=== PATIENT | female | born 1950 | race Caucasian/White ===

== ENCOUNTER 2016-11-13 11:18 | Inpatient (IN) | payer OTHER ==
[2016-11-04 14:10] VITALS: BMI 23.3
[~2016-11-13 11:18] MED LIST: ACETAMINOPHEN TAB 500 MG TAB PO ONE; DEXAMETHASONE SOD PHOSPHATE 10 MG/ML 1 ML VIAL IV ONE; HYDROmorphone 1 MG/ML 1 ML SYRINGE IVP PRN; LACTATED RINGERS 1,000 ML IV SCH; MELOXICAM 7.5 MG TAB PO ONE; ONDANSETRON 4 MG/2 ML VIAL IVP ONE; TRANEXAMIC ACID 1,000 MG in SODIUM CHLORIDE 0.9% 100 ML IVPB ONE
[2016-11-13] MEDS ORDERED: LIDOCAINE 1% 20 ML VIAL (10MG/ML) FOR IV START INTRADERMA ONE (11:45)
[2016-11-13] MEDS ORDERED: ceFAZolin 10 GM VIAL IVPB ONE (12:27)
[2016-11-13] MEDS ORDERED: LACTATED RINGERS 1,000 ML BAG IV ONE (12:27)
[2016-11-13] MEDS ORDERED: TRANEXAMIC ACID 1,000 MG/10 ML VIAL ONE (12:27)
[2016-11-13] MEDS: ceFAZolin 2 GM in SODIUM CHLORIDE 0.9% 100 ML IVPB ONE ×2 (12:27→16:23)
[2016-11-13] MEDS ORDERED: SODIUM CHLORIDE 0.9% IRRIG 3,000 ML BAG IRRIGATION ONE (12:27)
[2016-11-13] MEDS ORDERED: fentaNYL (PF) 50 MCG/ML 2 ML AMP ONE (12:27)
[2016-11-13] MEDS ORDERED: MIDAZOLAM 2 MG/2 ML VIAL ONE (12:27)
[2016-11-13] MEDS ORDERED: PROPOFOL 10 MG/ML 20 ML VIAL IV ONE (12:27)
[2016-11-13] MEDS ORDERED: PHENYLEPHRINE-0.9% NACL SYG 1 MG/10 ML SYRINGE ONE (12:27)
[2016-11-13] MEDS ORDERED: LIDOCAINE 1% INJ 10MG/ML (20 ML MDV) ONE (12:27)
[2016-11-13] MEDS ORDERED: ceFAZolin 1,000 MG VIAL ONE (12:27)
[2016-11-13] MEDS ORDERED: SODIUM CHLORIDE 0.9% 100 ML BAG ONE ×2 (12:27)
[2016-11-13] MEDS ORDERED: MORPHINE SULFATE (PF) 0.3 MG/0.3 ML SYR ONE (12:27)
[2016-11-13] MEDS: ROPIVACAINE 246.25 MG, EPINEPHrine 0.5 MG, KETOROLAC 30 MG, cloNIDine HCL/PF 80 MCG, WA... MISCELLANE ONE ×10 (13:11→13:37)
[2016-11-13] MEDS: LACTATED RINGERS 1,000 ML IV ONE ×2 (13:22→16:24)
[2016-11-13] MEDS: ceFAZolin 3,000 MG in SODIUM CHLORIDE 0.9% IRRIGATIO 3,000 ML IRRIGATION ONE ×2 (13:26→16:24)
[2016-11-13] MEDS ORDERED: DIAZEPAM 5 MG TAB PO PRN (14:36)
[2016-11-13] MEDS ORDERED: TEMAZEPAM 15 MG CAP PO PRN (14:36)
[2016-11-13] MEDS ORDERED: BISACODYL 10 MG SUPP RECTAL PRN (14:36)
[2016-11-13] MEDS ORDERED: HYDROmorphone 1 MG/ML 1 ML SYRINGE IVP PRN ×3 (14:36)
[2016-11-13] MEDS ORDERED: NA PHOS,M-B/NA PHOS,DI-BA 133 ML ENEMA RECTAL PRN (14:36)
[2016-11-13] MEDS ORDERED: HYDROcodone/APAP 7.5-325MG 1 EACH TAB PO PRN (14:36)
[2016-11-13] MEDS ORDERED: ONDANSETRON 4 MG/2 ML VIAL IVP PRN (14:36)
[2016-11-13] MEDS ORDERED: MAGNESIUM HYDROXIDE 2,400 MG/10 ML CUP PO PRN (14:36)
[2016-11-13] MEDS ORDERED: NALOXONE 0.4 MG/ML 1 ML VIAL IV PRN ×3 (14:36→18:26)
--- NOTE | 2016-11-13 15:15 | XR ---
EXAMINATION TYPE: XR knee limited LT DATE OF EXAM: 11/13/2016 2:51 PM COMPARISON: NONE HISTORY: 66-year-old female evaluation for postoperative abnormality and alignment TECHNIQUE: Portable AP and crosstable lateral views FINDINGS: Images demonstrate placement of left total knee arthroplasty. Both distal femoral and proximal tibial components of the prosthesis appear well seated without periprosthetic fracture. Alignment is grossl y anatomic. There is anterior soft tissue swelling with soft tissue gas as well as intra-articular ai r and joint effusion compatible with recent operation. IMPRESSION: Unremarkable postoperative appearance left total knee arthroplasty.
[2016-11-13] MEDS ORDERED: LACTATED RINGERS 1,000 ML IV ONE (15:21)
[2016-11-13] MEDS ORDERED: PROMETHAZINE INJ 6.25 MG in SODIUM CHLORIDE 0.9% 50 ML IVPB PRN (16:52)
[2016-11-13] MEDS ORDERED: diphenhydrAMINE 50 MG/ML 1 ML VIAL IVP PRN (16:52)
[2016-11-13] MEDS ORDERED: MORPHINE SULFATE 4 MG/ML SYRINGE IVP PRN (16:52)
[2016-11-13] MEDS ORDERED: METOCLOPRAMIDE 5 MG/ML 2 ML VIAL IVP PRN (16:52)
[2016-11-13] MEDS ORDERED: NON-FORMULARY DRUG (Acetaminophen [Tylenol 8 Hour] 650 MG) PO PRN (17:11)
--- NOTE | 2016-11-13 18:29 | PN ---
DATE OF VISIT: 11/13/2016 Stephanie is status post left total knee arthroplasty. She is resting comfortably. I saw her in the postoperative recovery area just as she was about to be transferred up to her room. She is resting comfortably. She is alert and oriented. Her pain is very well controlled at this point in time. Her dressing is dry. She has intact flexion, extension, inversion and eversion of her foot. She has intact lateral, medial, plantar and first dorsal webspace sensation. She has brisk capillary refill in all of her digits. IMPRESSION: Status post left total knee arthroplasty. RECOMMENDATIONS: Stephanie is doing quite well in the very early postoperative period. She will be transferred to the floor. She will begin with usual postoperative total knee arthroplasty therapy protocol starting tomorrow morning. She will utilize Coumadin or aspirin for DVT prophylaxis. All of Stephanie's questions were answered to her satisfaction.
[2016-11-13] MEDS: NALBUPHINE 10 MG/ML AMPUL IV PRN (18:57)
[2016-11-13] MEDS: SODIUM CHLORIDE 0.9% 1,000 ML IV SCH (19:46)
[2016-11-13] MEDS: ASPIRIN 325 MG TAB PO SCH (20:25)
[2016-11-13] MEDS: PRAVASTATIN SODIUM 20 MG TAB PO SCH (20:25)
[2016-11-13] MEDS: GABAPENTIN 100 MG CAP PO SCH (20:25)
[2016-11-13] MEDS: SENNOSIDES-DOCUSATE SODIUM 1 EACH TAB PO SCH (20:25)
[2016-11-13] MEDS: ceFAZolin 2 GM in SODIUM CHLORIDE 0.9% 100 ML IVPB SCH (20:25)
--- NOTE | 2016-11-13 22:42 | OP ---
DATE OF SERVICE: 11/13/2016 SURGEON: RAMÍREZ CARDOZA MD MAINTENANCE ELECTRICIAN: JOAQUÍN PERALES PA-C PREOPERATIVE DIAGNOSIS: Left knee osteoarthrosis. POSTOPERATIVE DIAGNOSIS: Left knee osteoarthrosis. OPERATION: Left total knee arthroplasty. ANESTHESIA: Spinal with sedation. ESTIMATED BLOOD LOSS: 100 mL TOURNIQUET TIME: 51 minutes @ 250 mmHg SPECIMENS REMOVED: COMPLICATIONS: None apparent. DRAINS: None. DISPOSITION: Post-Anesthesia Care Unit OPERATIVE FINDINGS: INDICATIONS: Stephanie is a 66-year-old female with a long-standing history of left knee pain. History and physical examination were consistent with advanced left knee osteoarthrosis. She has been through significant nonoperative management up to this point. Further treatment options were discussed and she decided to go forward with left total knee arthroplasty. The risks of the procedure were discussed with her in detail. These risks include but are not limited to risk of infection, nerve damage, bleeding, pain, and a small risk of deep vein thrombosis which could lead to fatal pulmonary embolism. There is also a risk of loosening of the implant which could require revision operation. The patient understands these risks. All of her questions were answered to her satisfaction. Appropriate informed consent was obtained. DESCRIPTION OF THE PROCEDURE: The patient was identified in the preoperative holding area. The operative site was marked by both the patient and myself. She was given 2 grams of Ancef IV for prophylactic purposes. She was then transferred to the operative suite, where she was placed supine on the operating room table. A spinal anesthetic was then administered and dosed per the anesthesia department without apparent complication. Examination under anesthesia was then performed. The patient was 2 to 3 degrees shy of full extension. She had 100 degrees of flexion, and the medial collateral ligament, lateral collateral ligament and posterior cruciate ligaments were stable. Tourniquet was then placed high on the left upper thigh, well padded in preparation for surgery. The patient's left lower extremity was then prepped and draped in the usual sterile fashion. Standard surgical pause was then undertaken to ensure that we were operating on the correct site and that appropriate preoperative antibiotics had been given. All staff in the room were in agreement and we proceeded. The outlines of the patella were then marked with a surgical pen. A planned 12 cm vertical incision centered over the patella was marked with a surgical pen. The leg was then exsanguinated with an Esmarch dressing. The knee was then flexed and the tourniquet was inflated to 250 mmHg. The total tourniquet time for the procedure was 51 minutes. Incision was then made with a 10 blade scalpel. Dissection was carried down sharply to the overlying fascia. Great care was taken to minimize the skin flaps. The knee was then exposed using a standard medial parapatellar approach. A small cuff of quadriceps tendon was then left for suturing. She was in a bit of varus preoperatively. A standard medial release was then made. A superficial medial collateral ligament was dissected off of the bone around to the posterior aspect of the proximal tibia. The medial meniscus was then excised as well. The lateral meniscus was also released anteriorly. The leg was then externally rotated. The patella was then everted and the knee was flexed. The retractors were then placed to protect the collateral ligaments. I then proceeded to remove the infrapatellar fat pad. This was excised sharply tangentially with the fibers of the patellar tendon. I then proceeded to remove the peripheral osteophytes. This was done with a rongeur. I then proceeded with the distal femoral resection. She did have near-full extension. A planned 9 mm resection was done. The femoral canal was then entered in the midline of the femur, approximately 10 mm anterior to the origin of the posterior cruciate ligament. The rashmi was then advanced down the center of the femur and the rashmi placed intramedullary. Based on preoperative radiographs, the angle between the anatomic and mechanical axis of the femur was approximately 4 to 5 degrees. The valgus angle of the distal femoral cutting guide was then set at 4 degrees for the left knee. The femoral cutting guide was then advanced over the intramedullary rashmi. This was seated firmly against the femur. I then, as mentioned, planned to take 9 mm off the distal femur. The cutting block was then secured onto the femur with pins. The jig was then removed and the distal femoral cut was made through the slot of the block. The pins were then removed and the distal femoral cutting block was removed. The accuracy of the distal femoral cuts was checked with 2 flat bars. I then proceeded with femoral sizing. The posterior referencing sizing guide was held firmly against the resected distal surface of the femur. The posterior condyles were resting on the posterior plane of the guide. The sizing stylus was then placed onto the anterior femur. The size was measured as size 5. I then assessed for femoral rotation. The plan was for 3 degrees of external rotation. Three degrees of external rotation was placed onto the jig. These holes were then marked. I then confirmed the rotation by 3 separate methods. This was done using the epicondylar axis as well as Whitesides line and posterior referencing. It was deemed that the external rotation was proper. I then went forward with placing the femoral cutting block. This was placed over the previously placed pinholes. The reuben wing was then placed onto the anterior slots to ensure that we would not notch the anterior femur with the anterior femoral cut. I then proceeded with the anterior femoral cut. This was flush with the anterior cortex of the femur. Posterior cuts were then made followed by the anterior chamfer cut and then the posterior chamfer cut. The cutting block was then removed. Throughout the resection, the collateral ligaments were protected with retractors. I then placed a trial size 5 femur. It fit very nice medial to lateral and fit flush with the distal end of the femur. The drill holes were then made. I then proceeded with the tibial cut. I planned for a cruciate-retaining knee. The guide was placed and set for varus, valgus and for slope. The height was set for approximately 2 mm resection from the medial tibial plateau, which was the lower side. I was happy with the alignment and the amount of resection. The cutting block was then pinned to the proximal tibia. The alignment rashmi was removed and the proximal tibia was resected with the reciprocating saw. Again this was done with retractors protecting the collateral ligaments as well as the posterior cruciate ligament. I then proceeded to evaluate the flexion and extension gaps. A 10 mm block was placed. The flexion and extension gaps were equal. I then proceeded with resection of the posterior osteophytes. She had very minimal posterior osteophytes. This was done using a curved osteotome. This resected the posterior osteophytes, and posterior capsule stripping was also done off the posterior aspect of the femur at this time. The osteophytes were removed. I then proceeded with resection of the patella. The thickness of the patella was measured using the caliper. Thickness was 22 mm. The thickness of the anticipated patellar dome was taken into account. Resection was then performed and confirmed to be equal in 4 quadrants using the caliper. Approximately 14 mm of bone remained after the resection. A 29 x 8 standard patellar trial was then placed. The holes were then drilled and the trial was then placed. I then proceeded with the sizing of the tibial plate. A size C tibial plate fit very nicely. I then placed the trial femur, the tibial tray and the patellar button. A 10 mm trial tibial insert was also placed. The components fit very nicely. She had full extension and flexion. Extension and flexion gaps were equal and stable to both varus and valgus stress. The patella tracked appropriately. Tibial tray rotation was then marked with a Bovie. This was externally rotated properly. I then proceeded with tibial preparation. I first drilled the femoral holes and removed the femoral component. The tibial tray was then set for proper external rotation as well as mediolateral placement onto the tibia. It was then pinned into place. I then proceeded with punching the keel. I then decided to proceed with cementing of all of our components. The knee was thoroughly irrigated with sterile saline solution via pulse lavage. The lateral genicular artery was identified and cauterized. All blood was removed from the bone of the tibia, femur and patella with pulse lavage. I then proceed with cementing. Two packs of antibiotic bone cement were prepared on the back table by the certified surgical technologist. I then proceeded with cementing of the tibia first. The cement was impacted into the keel as well as deeply seated into the bone. A second coat of cement was then placed. The tibia was then impacted into place. Excess cement was removed with Rose Marie's and jokers. I then proceeded with cementing the femoral component. The femoral component was also cemented using standard technique. Excess cement was removed. A 10 mm trial insert was then placed into the knee. It was brought into full extension with a constant axial load placed until the cement had hardened. The patellar component was then cemented. This was held firmly with a compressive device until the cement had dried. When the cement had dried, the knee was taken out of extension. All excess cement was removed from around the prosthesis. I then trialed the knee with a 10 mm insert. The flexion and extension gaps were appropriate. The knee was stable. It came into full extension. I decided to go forward with a 10 mm cross-linked cruciate-retaining tibial insert. Polyethylene was then placed onto the tibial tray and locked. The knee was then reduced. The knee was again further irrigated with sterile saline solution with antibiotic added. The tourniquet was then deflated. The total tourniquet time for the procedure was 51 minutes at 250 mmHg. Final components were a Carlo Persona size 5 cruciate-retaining femoral component, a size C tibial tray, a 10 mm medial congruent cruciate-retaining polyethylene insert and a 29 x 8 mm patella. I then proceeded with closure. Again the knee was thoroughly irrigated. The quadriceps tendon and the medial retinaculum were reapproximated with #2 Ethibond suture. The extensor mechanism was then closed with running #2 Quill suture. Subcutaneous tissues were closed with 2-0 Vicryl interrupted suture. The skin was closed with a running 3-0 Quill suture. Dermabond was applied to the incision. Sterile compressive dressings were applied. All sponge and needle counts were deemed correct prior to closure. The patient tolerated the procedure without apparent complication. She was transferred to the recovery room in stable condition.
[2016-11-13] MEDS: ACETAMINOPHEN TAB 325 MG TAB PO PRN (23:34)
[2016-11-14] MEDS: NALBUPHINE 10 MG/ML AMPUL IV PRN ×2 (02:19→09:31)
[2016-11-14] MEDS: SODIUM CHLORIDE 0.9% 1,000 ML IV SCH ×3 (03:14→22:17)
[2016-11-14] MEDS: ceFAZolin 2 GM in SODIUM CHLORIDE 0.9% 100 ML IVPB SCH (03:26)
[2016-11-14] MEDS: ACETAMINOPHEN TAB 325 MG TAB PO PRN (05:34)
[2016-11-14 07:10] LABS: Basophils % (A) 0 %; CH 34.4; CHCM 33.5; Eosinophils % (A) 0 %; HCT 33.5 % (34.0-46.0); HGB 10.9 gm/dL (11.4-16.0); Luc # (Auto) 0.11; Luc % (Auto) 1; Lymphocytes % (A) 9 %; MCH 33.6 pg (25.0-35.0); MCHC 32.6 g/dL (31.0-37.0); Macrocytosis Slight; Mean Platelet Volume 8.3; Monocytes # (A) 0.9 k/uL (0-1.0); Monocytes % (A) 8 %; Neutrophils # (A) 9.1 k/uL (1.3-7.7); Neutrophils % (A) 82 %; RBC 3.25 m/uL (3.80-5.40); RDW 12.6 % (11.5-15.5); WBC 11.1 k/uL (3.8-10.6); WBC (Perox) 11.43
--- NOTE | 2016-11-14 07:11 | CONS ---
DATE OF CONSULTATION: REASON FOR CONSULTATION: Postoperative complication management and recommendations regarding antihypertensive medications. The patient is a very pleasant 66-year-old female with known history of hypertension and hyperlipidemia is admitted for left knee arthroplasty, successfully underwent surgery without any complication with ( ). The patient denied any fever or chills. Patient denied nausea, vomiting . Patient denied any dysuria. The patient does have a Johnson catheter postoperatively, which will subsequently be removed tomorrow morning or later today. The patient is ( ) at this point of time. REVIEW OF SYSTEMS: CONSTITUTIONAL: No fever, no malaise, no fatigue. HEENT: No recent visual problems or hearing problems. Denied any sore throat. CARDIOVASCULAR: No chest pain, orthopnea, PND, no palpitations, no syncope. PULMONARY: No shortness of breath, no cough, no hemoptysis. GASTROINTESTINAL: No diarrhea, no nausea, no vomiting, no abdominal pain. Normoactive bowel sounds. NEUROLOGICAL: No headaches, no weakness, no numbness. HEMATOLOGICAL: Denies any bleeding or petechiae. GENITOURINARY: Denies any burning micturition, frequency, or urgency. MUSCULOSKELETAL/RHEUMATOLOGICAL: Denies any joint pain, swelling, or any muscle pain. ENDOCRINE: Denies any polyuria or polydipsia. The rest of the 14 point review of systems is negative. Home medications include: 1. Citracal. 2. Acetaminophen. 3. Aspirin 162 p.o. daily. 4. Calcium carbonate. 5. Divalproex. 6. Gabapentin. 7. Nadolol. 8. Omeprazole. 9. Ondansetron. 10. Pravastatin. 11. Ramipril. Past medical history is significant for gastroesophageal reflux disease, hyperlipidemia, hypertension, migraines in the past, hysterectomy, motion sickness, claustrophobia, anxiety. Family history is significant for myocardial infarction in the family. PHYSICAL EXAMINATION: VITAL SIGNS: Temperature 97.6, pulse 64, respiratory rate of 15, blood pressure 130/68, saturating at 95% on room air. PHYSICAL EXAMINATION: GENERAL: The patient is alert and oriented x3, not in any acute distress. Well developed, well nourished. HEENT: Pupils are round and equally reacting to light. EOMI. No scleral icterus. No conjunctival pallor. Normocephalic, atraumatic. No pharyngeal erythema. No thyromegaly. CARDIOVASCULAR: S1 and S2 present. No murmurs, rubs, or gallops. PULMONARY: Chest is clear to auscultation, no wheezing or crackles. ABDOMEN: Soft, nontender, nondistended, normoactive bowel sounds. No palpable organomegaly. MUSCULOSKELETAL: No joint swelling or deformity. EXTREMITIES: No cyanosis, clubbing, or pedal edema. NEUROLOGICAL: Gross neurological examination did not reveal any focal deficits. SKIN: No rashes. Left knee defer to Orthopedic Surgery. LABORATORY DATA: None available at this point of time. ASSESSMENT AND PLAN: 1. Status post left knee arthroplasty. The patient is on deep venous thrombosis prophylaxis with b.i.d. aspirin. I will leave the decision of deep venous thrombosis prophylaxis to Orthopedic Surgery and management of her pain as per primary services. 2. Hypertension. To prevent perioperative hypotension, hold off Ramipril and nadolol can be continued to prevent perioperative myocardial infarction risks. 3. Hyperlipidemia. 4. Gastroesophageal reflux disease. Her home medications can be continued. Thank you for letting me participate in the patient's care. Will continue to follow the patient on as-needed basis. Patient's primary care physician is Dr. Kait Evans.
[2016-11-14 07:26] LABS: Anion Gap 10 mmol/L; Blood Urea Nitrogen 10 mg/dL (7-17); Carbon Dioxide 24 mmol/L (22-30); Chloride 101 mmol/L (98-107); Glucose 88 mg/dL (74-99); Non-African American GFR(MDRD) >60 (>60 ml/min/1.73 sqM); Potassium 5.2 mmol/L (3.5-5.1); Sodium 135 mmol/L (137-145)
[2016-11-14] MEDS: HYDROcodone/APAP 7.5-325MG 1 EACH TAB PO PRN ×2 (07:55→12:55)
[2016-11-14] MEDS: DIVALPROEX 250 MG TABLET.DR PO SCH (07:57)
[2016-11-14] MEDS: ASPIRIN 325 MG TAB PO SCH ×2 (07:57→20:23)
[2016-11-14] MEDS: NADOLOL 20 MG TAB PO SCH (07:57)
[2016-11-14] MEDS: GABAPENTIN 100 MG CAP PO SCH ×2 (07:57→20:23)
[2016-11-14] MEDS: PANTOPRAZOLE 40 MG TABLET PO SCH (07:57)
[2016-11-14] MEDS ORDERED: NON-FORMULARY DRUG (Aspirin [Adult Low Dose Aspirin Ec] 162 MG) PO SCH (09:00)
[2016-11-14] MEDS ORDERED: LISINOPRIL 20 MG TAB PO SCH (09:00)
--- NOTE | 2016-11-14 09:24 | P.PN ---
Subjective Principal diagnosis: Status post left total knee arthroplasty This is a 66 year-old female post total knee arthroplasty. This is post-op day 1. The patient was evaluated at the bedside today. The patient denies nausea, vomiting, abdominal pain, shortness of breath, and chest pain this morning. She does complain of itching this morning. She states her pain is controlled at this time. The patient has ambulated to the bathroom and in her room this morning. Objective - Vital Signs Vital signs: Vital Signs Temp 97.1 F L 11/14/16 01:00 Pulse 67 11/14/16 01:00 Resp 16 11/14/16 01:00 BP 131/73 11/14/16 01:00 Pulse Ox 98 11/14/16 03:00 Intake & Output 11/13/16 11/14/16 11/14/16 18:59 06:59 18:59 Intake Total 2051 1550 240 Output Total 800 1900 Balance 1251 -350 240 Weight 63.503 kg Intake: IV 2050 300 Sodium Chloride 0.9% 1, 300 000 ml @ 100 mls/hr IV . Q10H MIGUEL Rx#:[id number] Oral 1250 240 Output: Urine 700 1900 Uretheral ([place]) 1900 Estimated Blood Loss 100 Other: Voiding Method Indwelling Catheter - Exam The patient does not appear in acute distress. Alert and orientated x3. Dressing is clean dry and intact. Incision appears fine with no erythema or active drainage. Calf is soft and nontender. Good foot and ankle motion without difficulty. Sensation and circulatory status is intact. - Labs CBC & Chem 7: 11/14/16 06:48 11/14/16 06:45 Labs: Abnormal Lab Results - Last 24 Hours (Table) 11/14/16 11/14/16 Range/Units 06:45 06:48 WBC 11.1 H (3.8-10.6) k/uL RBC 3.25 L (3.80-5.40) m/uL Hgb 10.9 L (11.4-16.0) gm/dL Hct 33.5 L (34.0-46.0) % MCV 103.0 H (80.0-100.0) fL Neutrophils # 9.1 H (1.3-7.7) k/uL Sodium 135 L (137-145) mmol/L Potassium 5.2 H (3.5-5.1) mmol/L Assessment and Plan (1) Primary osteoarthritis of left knee Status: Acute (2) Status post left knee replacement Status: Acute Plan: 1. Continue pain control 2. Anticoagulation with Aspirin 3. Continue physical therapy and ambulation 4. Anticipate discharge home with homecare tomorrow
--- NOTE | 2016-11-14 10:40 | P.PN ---
Progress Note - Text Date:11/14 Time:715 Patient is status post tkr. Patient seen this morning with VAS score of 2. c/o of pruritus, no c/o nausea/vomiting, comfortable and doing well.
[2016-11-14] MEDS ORDERED: CALCIUM CARBONATE 500 MG CHEWABLE PO SCH ×2 (12:00→12:40)
[2016-11-14] MEDS: CALCIUM CARB-VIT D 500MG-200UN 1 EACH TAB PO SCH (12:34)
[2016-11-14] MEDS: MULTIVITAMINS, THERA 1 EACH TAB PO SCH (12:34)
[2016-11-14] MEDS ORDERED: traMADol 50 MG TAB PO PRN (14:44)
[2016-11-14] MEDS: KETOROLAC 30 MG/ML 1 ML VIAL IVP PRN (16:54)
[2016-11-14] MEDS: hydrOXYzine PAMOATE 25 MG CAP PO PRN ×2 (17:54→23:22)
[2016-11-14] MEDS: HYDROcodone/APAP 10-325MG 1 EACH TAB PO PRN ×2 (17:54→23:14)
--- NOTE | 2016-11-14 20:22 | PN ---
Patient is admitted for left ( ) arthroplasty and patient is hyperkalemic today secondary to Ramipril and depending on her blood pressure I will either decrease her ( ) dose or completely discontinue Ramipril and because of her hyperkalemia and will repeat electrolytes tomorrow. Patient is complaining of spasm in the left posterior thigh area, because of post surgery, I will start her on ( ) pain and add NSAIDs for her pain. The patient does have leukocytosis secondary to reactive response from post surgery. REVIEW OF SYSTEMS: CARDIOVASCULAR: No chest pain, no orthopnea, no PND, no palpitations. PULMONARY: Denied any shortness of breath. No cough or hemoptysis. GASTROINTESTINAL: No diarrhea, nausea or vomiting. No abdominal pain. Normoactive bowel sounds. NEUROLOGIC: No headaches, no weakness, no numbness. Musculoskeletal as described in HPI. Medications were reviewed and medication changes as mentioned in the interval history. PHYSICAL EXAMINATION: VITAL SIGNS: Temperature 97.9, pulse of 66, respiratory rate of 16, blood pressure 138/71. Saturating at 98% on room air. GENERAL: The patient is alert and oriented x3, not in any acute distress. Well developed, well nourished. HEENT: Pupils are round and equally reacting to light. EOMI. No scleral icterus. No conjunctival pallor. Normocephalic, atraumatic. No pharyngeal erythema. No thyromegaly. CARDIOVASCULAR: S1 and S2 present. No murmurs, rubs, or gallops. PULMONARY: Chest is clear to auscultation, no wheezing or crackles. ABDOMEN: Soft, nontender, nondistended, normoactive bowel sounds. No palpable organomegaly. MUSCULOSKELETAL: Deferred to orthopedic surgery. EXTREMITIES: No cyanosis, clubbing, or pedal edema. NEUROLOGICAL: Gross neurological examination did not reveal any focal deficits. SKIN: No rashes. LABORATORY DATA: As mentioned above. ASSESSMENT AND PLAN: 1. Hyperkalemia secondary to Ramipril. 2. Status post left knee arthroplasty pain management as mentioned above. 3. Deep venous thrombosis prophylaxis as per primary service. 4. Hypertension. Continue with beta josh and hold off on PARMINDER inhibitor as mentioned above. 5. Hyperlipidemia. 6. Gastroesophageal reflux disease. 7. Leukocytosis, reactive response as mentioned above.
[2016-11-14] MEDS: PRAVASTATIN SODIUM 20 MG TAB PO SCH (20:23)
[2016-11-14] MEDS: SENNOSIDES-DOCUSATE SODIUM 1 EACH TAB PO SCH (20:23)
[2016-11-15] MEDS: KETOROLAC 30 MG/ML 1 ML VIAL IVP PRN ×2 (00:27→12:24)
[2016-11-15] MEDS: HYDROcodone/APAP 10-325MG 1 EACH TAB PO PRN ×2 (04:48→11:14)
[2016-11-15] MEDS: hydrOXYzine PAMOATE 25 MG CAP PO PRN ×2 (04:48→11:13)
[2016-11-15] MEDS: SODIUM CHLORIDE 0.9% 1,000 ML IV SCH (05:40)
--- NOTE | 2016-11-15 06:52 | P.DS ---
Providers Date of admission: 11/13/16 11:18 Expected date of discharge: 11/15/16 Attending physician: Abad Rodriguez Consults: 11/13/16 14:36 Consult Physician Routine Consulting Provider: Bunny Murray Consult Reason/Comments: post op medical management Do you want consulting provider notified?: Yes Primary care physician: Husam Evans - Discharge Diagnosis(es) (1) Primary osteoarthritis of left knee Current Visit: Yes Status: Acute (2) Status post left knee replacement Current Visit: Yes Status: Acute Hospital Course: This is a pleasant 66-year-old female last seen in our office with complaints of left knee pain. Patient has known history of degenerative arthritis of the left knee and presented to discuss options. After discussion and consideration , the patient elected to proceed with a left total knee arthroplasty. Patient was seen preoperatively, and medically cleared for surgery by her primary care physician. Patient was admitted to [facility] and underwent left total knee arthroplasty with Dr. Rodriguez. The procedure was performed without complications or sequelae. The patient is seen and evaluated at bedside today. She has had some difficulty with pain control postoperatively and is currently on Safford 10mg. Patient has no new complaints today and denies any fevers, chills, nausea, vomiting, or shortness of breath. Vital signs are stable. Dressing is clean dry and intact. Incision looks fine with no erythema or active drainage. Calf is soft and nontender. Patient has full foot and ankle motion without difficulty. Homans is negative. Patient's left lower extremity is neurovascularly intact. The patient is orthopedically stable for discharge today if she is ambulating well with physical therapy and her pain is controlled.. Pertinent Studies: Laboratory Tests 11/14/16 06:48 WBC 11.1 H RBC 3.25 L Hgb 10.9 L Hct 33.5 L MCV 103.0 H Plan - Discharge Summary New Discharge Prescriptions: Aspirin 325 mg PO BID #60 tab HYDROcodone/APAP 10-325MG [Safford 10] 1 - 2 each PO Q6H PRN #90 tab PRN Reason: Pain Sennosides-Docusate Sodium [Senokot-S] 2 tab PO DAILY #60 tablet hydrOXYzine PAMOATE [Vistaril] 25 mg PO QID PRN #40 cap PRN Reason: Pain Discharge Medication List Acetaminophen [Tylenol 8 Hour] 650 mg PO BID PRN 10/10/16 [History] Aspirin [Adult Low Dose Aspirin EC] 162 mg PO DAILY 10/10/16 [History] Ca Carbonate/Vitamin D3/Vit K [Citracal Soft Chew] 1 tab PO DAILY 10/10/16 [ History] Divalproex [Depakote] 250 mg PO DAILY 10/10/16 [History] Nadolol [Corgard] 20 mg PO DAILY 10/10/16 [History] Pravastatin Sodium [Pravachol] 20 mg PO HS 10/10/16 [History] Ramipril 10 mg PO DAILY 10/10/16 [History] Citracal Tab 1 tab PO DAILY 11/04/16 [History] Gabapentin [Neurontin] 100 mg PO BID 11/04/16 [History] Omeprazole 20 mg PO DAILY 11/04/16 [History] Ondansetron [Zofran ODT] 8 mg PO Q8HR PRN 11/04/16 [History] Aspirin 325 mg PO BID #60 tab 11/15/16 [Rx] HYDROcodone/APAP 10-325MG [Safford 10] 1 - 2 each PO Q6H PRN #90 tab 11/15/16 [Rx] Sennosides-Docusate Sodium [Senokot-S] 2 tab PO DAILY #60 tablet 11/15/16 [Rx] hydrOXYzine PAMOATE [Vistaril] 25 mg PO QID PRN #40 cap 11/15/16 [Rx] Follow up Appointment(s)/Referral(s): Abad Rodriguez MD [STAFF PHYSICIAN] - 2 Weeks Activity/Diet/Wound Care/Special Instructions: [facility] - [phone] [facility] - [phone] Weightbearing as tolerated with a walker Daily dressing changes, keep incision clean and dry [facility] with questions or concerns [phone] Discharge Disposition: HOME WITH HOME HEALTH SERVICES
[2016-11-15 07:33] LABS: Anion Gap 11 mmol/L; Blood Urea Nitrogen 11 mg/dL (7-17); Carbon Dioxide 21 mmol/L (22-30); Chloride 98 mmol/L (98-107); Glucose 85 mg/dL (74-99); Non-African American GFR(MDRD) >60 (>60 ml/min/1.73 sqM); Potassium 4.9 mmol/L (3.5-5.1); Sodium 130 mmol/L (137-145)
[2016-11-15] MEDS: DIVALPROEX 250 MG TABLET.DR PO SCH (08:25)
[2016-11-15] MEDS: GABAPENTIN 100 MG CAP PO SCH (08:25)
[2016-11-15] MEDS: ASPIRIN 325 MG TAB PO SCH (08:25)
[2016-11-15] MEDS: CALCIUM CARB-VIT D 500MG-200UN 1 EACH TAB PO SCH (08:26)
[2016-11-15] MEDS: NADOLOL 20 MG TAB PO SCH (08:26)
[2016-11-15] MEDS: MULTIVITAMINS, THERA 1 EACH TAB PO SCH (08:26)
[2016-11-15] MEDS: PANTOPRAZOLE 40 MG TABLET PO SCH (08:26)
[2016-11-15 08:34] VITALS: BP 143/72; PULSE 74; RESP 19; TEMP 98
--- NOTE | 2016-11-15 17:29 | PN ---
Patient is admitted with left hip arthroplasty and from medical perspective I am decreasing her Ramipril to 5 mg and her beta josh can be continued as it is. I have another concern that her sodium is dropping probably due to SIADH. I am giving her repeat basic metabolic profile to be tested in 3 days. If it is abnormal, the patient needs outpatient evaluation for SIADH. As of now, I believe patient is clinically stable to be discharged from medical perspective. REVIEW OF SYSTEMS: CARDIOVASCULAR: No chest pain, no orthopnea, no PND, no palpitations. PULMONARY: Denied any shortness of breath. No cough or hemoptysis. GASTROINTESTINAL: No diarrhea, nausea or vomiting. No abdominal pain. Normoactive bowel sounds. NEUROLOGIC: No headaches, no weakness, no numbness. Medications were reviewed. PHYSICAL EXAMINATION: VITAL SIGNS: Temperature 98.0, pulse 74, respiratory rate of 19, blood pressure 143/72, saturating at 97% on room air. GENERAL: The patient is alert and oriented x3, not in any acute distress. Well developed, well nourished. HEENT: Pupils are round and equally reacting to light. EOMI. No scleral icterus. No conjunctival pallor. Normocephalic, atraumatic. No pharyngeal erythema. No thyromegaly. CARDIOVASCULAR: S1 and S2 present. No murmurs, rubs, or gallops. PULMONARY: Chest is clear to auscultation, no wheezing or crackles. ABDOMEN: Soft, nontender, nondistended, normoactive bowel sounds. No palpable organomegaly. MUSCULOSKELETAL: No joint swelling or deformity. EXTREMITIES: No cyanosis, clubbing, or pedal edema. NEUROLOGICAL: Gross neurological examination did not reveal any focal deficits. SKIN: No rashes. LABORATORY DATA: Significant for low sodium as mentioned above. ASSESSMENT AND PLAN: 1. Status post left knee arthroplasty and deep venous thrombosis prophylaxis as per primary service. Pain management as mentioned as per primary service. 2. Hyperkalemia due to PARMINDER inhibitor we are cutting down the dose as mentioned above. 3. Deep venous thrombosis. 4. Hyponatremia, syndrome of inappropriate antidiuretic hormone needs to be ruled out, if she continues to be hyponatremic as an outpatient. 5. Hyperlipidemia. 6. Gastroesophageal reflux disease. 7. Leukocytosis is a reactive response. No signs or symptoms of infection at this point of time. Patient is okay to be discharged from medical perspective. Patient needs to follow with his primary care physician, Dr. Pravin Evans in 3 to 7 days. Activity as tolerated. Cardiac diet.
== END 2016-11-15 15:49 | disposition home health service (06) | DRG 470 ==
LOC: 2ORMAIN 11:18 → 3SUR 15:53
PROVIDERS: ADMIT Family Medicine; ATTEND Orthopaedic Surgery Sports Medicine
PROC: 0SRD0J9 Replacement of Left Knee Joint with Synthetic Substitute, Cemented, Open Approach (ICD-10-PCS; principal; 2016-11-13 14:00)
DX: M17.12 Unilateral primary osteoarthritis, left knee (principal); E87.1 Hypo-osmolality and hyponatremia; I10 Essential (primary) hypertension; E87.5 Hyperkalemia; E78.5 Hyperlipidemia, unspecified; K21.9 Gastro-esophageal reflux disease without esophagitis; G43.909 Migraine, unspecified, not intractable, without status migrainosus; F41.9 Anxiety disorder, unspecified; F40.240 Claustrophobia; T75.3XXA Motion sickness, initial encounter; T44.5X5A Adverse effect of predominantly beta-adrenoreceptor agonists, initial encounter; Z96.642 Presence of left artificial hip joint; Z79.82 Long term (current) use of aspirin; Z79.899 Other long term (current) drug therapy
CPT/HCPCS: 80048; 85025; 88300; 94760

== ENCOUNTER → 2018-02-23 | Outpatient (CLI) | payer OTHER ==
--- NOTE | 2018-02-23 10:35 | BD ---
EXAMINATION TYPE: MG DEXA axial skeleton. DATE OF EXAM: 02/23/2018 COMPARISON: 2004 DEXA bone scan report. CLINICAL HISTORY: screening for osteoporosis. Postmenopausal female. Height: 5'5 Weight: 155 FRAX RISK QUESTIONS: Alcohol (3 or more units per day): no Family History (Parent hip fracture): no Glucocorticoids (More than 3mos): no (Ex: prednisone, prednisolone, methylprednisolone, dexamethasone, and hydrocortisone). History of Fracture in Adulthood: no Secondary Osteoporosis: 1. Type 1 Diabetes: no 2. Hyperthyroidism: no 3. Menopause before 45: yes 4. Malnutrition: no 5. Chronic liver disease: no Rheumatoid Arthritis: no Current Tobacco Use: no RISK FACTORS HISTORY OF: Postmenopausal woman: Yes MEDICATIONS: Additional Medications: blood pressure, cholesterol, migraines Additional History: EXAM MEASUREMENTS: Bone mineral densitometry was performed using the My[employer] System. Bone mineral density as measured about the Lumbar spine is: ----- L1-L4(G/cm2): 1.393 T Score Values are as follows: ----- L2: 0.8 ----- L3: 2.9 ----- L4: 1.9 ----- L1-L4:1.8 Bone mineral density has: Decreased -13.6% since study of: 08/26/2004 Bone mineral density about the R hip (g/cm2): 1.056 Bone mineral density about the L hip (g/cm2): 1.064 T Score values are as follows: -----R Neck: 0.1 -----L Neck: 0.2 -----R Total: 0.0 -----L Total: 0.1 Bone mineral density has: Decreased -18.7% since study of: 08/26/2004 IMPRESSION: Normal (Values between +1 and -1 indicate normal bone mass). Consider repeating this study in 5 year s or sooner if there is some new clinical indication. NOTE: T-SCORE=SD OF THE YOUNG ADULT MEAN.
--- NOTE | 2018-02-24 13:43 | MM ---
Reason for exam: screening (asymptomatic). Last mammogram was performed 1 year and 7 months ago. History: Patient is postmenopausal. Physical Findings: A clinical breast exam by your physician is recommended on an annual basis and results should be correlated with mammographic findings. MG 3D Screening Mammo W/Cad Bilateral CC and MLO view(s) were taken. Prior study comparison: July 17, 2016, bilateral MG 3d screening mammo w/cad. March 01, 2015, bilateral MG screening mammo w CAD. There are scattered fibroglandular densities. No significant changes when compared with prior studies. ASSESSMENT: Negative, BI-RAD 1 RECOMMENDATION: Routine screening mammogram of both breasts in 1 year.
== END | disposition home or self-care (01) ==
LOC: RADMAMWWP 07:35
PROVIDERS: ATTEND Family Medicine
DX: Z12.31 Encounter for screening mammogram for malignant neoplasm of breast (principal); Z13.820 Encounter for screening for osteoporosis
CPT/HCPCS: 77063; 77067; 77080

== ENCOUNTER → 2018-04-09 | Outpatient (CLI) | payer OTHER | END | disposition home or self-care (01) | LOC: LABWHC1 15:50 | PROVIDERS: ATTEND Psychiatry & Neurology Neurology | DX: Z13.89 Encounter for screening for other disorder (principal) | CPT/HCPCS: 36415; 82565 ==

== ENCOUNTER → 2018-04-12 | Outpatient (CLI) | payer OTHER ==
--- NOTE | 2018-04-12 13:11 | MR ---
EXAMINATION TYPE: MR angio neck wo/w con DATE OF EXAM: 04/12/2018 COMPARISON: NONE HISTORY: Migraine CONTRAST: Performed utilizing 7.5 mL intravenous Gadavist gadolinium contrast. TECHNIQUE: Multiplanar, multiecho imaging on a 3.0 Flor magnet is performed through the carotid syst em. 3-D [id number] imaging is performed. Three-D reconstructed images performed by the technologi st are present. FINDINGS: Carotid bifurcations appear normal. No intraluminal or extramural defects are evident. No f ocal stenosis or flow gaps are evident. The vertebral arteries are codominant. The proximal intracranial vasculature appears normal as visualized. There is a three-vessel arch. IMPRESSIONS: 1. Normal bilateral carotid arteries. Vertebral arteries appear normal.
--- NOTE | 2018-04-12 13:59 | MR ---
EXAMINATION TYPE: MR brain/cspine wo DATE OF EXAM: 04/12/2018 COMPARISON: NONE HISTORY: Neck pain, Migraine CONTRAST: Performed utilizing 0 mL intravenous Gadavist gadolinium contrast. TECHNIQUE: Multiplanar, multiecho imaging on a 3.0 Flor magnet is performed through the brain. Stud y is performed within 24 hours of arrival to the hospital. The craniovertebral junction is normal. The pituitary is normal. Diffusion-weighted imaging is performed. No abnormal hyperintensity is present to suggest an acute i ntracranial infarct or acute ischemic change. There is mild diffuse periventricular white matter hyperintensity, which can be related to chronic wh ite matter ischemic changes. Ventricles and sulci are appropriate for the patient age. Mucosal thickening is within ethmoid air cells. Some mucosal thickening is present within the frontal sinuses. Remaining paranasal sinuses are clear IMPRESSIONS: 1. Mild periventricular white matter ischemic changes. EXAMINATION TYPE: MR brain/cspine wo DATE OF EXAM: 04/12/2018 COMPARISON: NONE HISTORY: Neck pain, Migraine CONTRAST: Performed utilizing 0 mL intravenous Gadavist gadolinium contrast. TECHNIQUE: Multiplanar multiecho imaging on a 3.0 Flor magnet is performed through the cervical spin e. FINDINGS: The craniovertebral junction is normal. Vertebral body alignment is normal. There is disc space narrowing C4-5 C5-6 C6-7. Endplate spurring from the inferior endplate of L5 is p resent. C6-7: There is some mild disc bulging C6-7 without cord contact. Mild thecal sac flattening is presen t. Foramen are patent. C5-6: Endplate changes are present C5-6 with moderate anterior thecal sac compression. This comes in close approximation with the spinal cord. Cord contact or spinal canal stenosis is not identified. Th ere is moderate right foraminal narrowing. C4-5: There is central focal bulging centrally and right paracentrally at C4-5. This has moderate ant erior thecal sac compression. This is in close approximation with spinal cord. No spinal canal stenos is present. Neural foramen are patent. C3-4: Minimal central bulge is present C3-4 with mild anterior thecal sac contact. No cord contact or spinal canal stenosis is present. C2-3, C7-T1: No focal disc herniation or significant disc bulge spinal canal stenosis or neural sameer inal stenosis is evident. IMPRESSIONS: 1. Disc bulging C3-4 through C6-7. This appears greatest at C5-6 causing moderate anterior thecal sac compression without cord deformity or contact. 2. Foraminal narrowing discussed above
== END | disposition home or self-care (01) ==
LOC: RADMRIMAIN 09:59
PROVIDERS: ATTEND Psychiatry & Neurology Neurology
DX: M99.71 Connective tissue and disc stenosis of intervertebral foramina of cervical region (principal); M50.21 Other cervical disc displacement, high cervical region; I67.82 Cerebral ischemia; R90.82 White matter disease, unspecified; G43.009 Migraine without aura, not intractable, without status migrainosus
CPT/HCPCS: 70549; 70551; 72141; A9581

== ENCOUNTER → 2019-02-24 | Outpatient (CLI) | payer OTHER ==
--- NOTE | 2019-02-25 11:16 | MM ---
Reason for exam: screening (asymptomatic). Last mammogram was performed 1 year ago. History: Patient is postmenopausal. Physical Findings: A clinical breast exam by your physician is recommended on an annual basis and results should be correlated with mammographic findings. MG 3D Screening Mammo W/Cad Bilateral CC and MLO view(s) were taken. Prior study comparison: February 23, 2018, bilateral MG 3d screening mammo w/cad. July 17, 2016, bilateral MG 3d screening mammo w/cad. There are scattered fibroglandular densities. No significant changes when compared with prior studies. ASSESSMENT: Benign, BI-RAD 2 RECOMMENDATION: Routine screening mammogram of both breasts in 1 year.
== END | disposition home or self-care (01) ==
LOC: RADMAMWWP 06:55
PROVIDERS: ATTEND Family Medicine
DX: Z12.31 Encounter for screening mammogram for malignant neoplasm of breast (principal)
CPT/HCPCS: 77063; 77067

== ENCOUNTER → 2020-10-30 | Outpatient (CLI) | payer OTHER ==
--- NOTE | 2020-10-30 16:11 | CT ---
EXAMINATION TYPE: CT brain wo con DATE OF EXAM: 10/30/2020 COMPARISON: None HISTORY: c/o headaches, visual changes CT DLP: 1064.[address] of the brain was performed. The ventricles, basal cisterns and sulci overlying the cerebral convexities demonstrate mild enlargem ent. There is no evidence for intracranial hemorrhage or sulcal effacement. There is decreased attenuation about the periventricular white matter and deep white matter of both c erebral hemispheres, compatible with chronic small vessel ischemia. Differential diagnosis does inclu de demyelination. No mass effects are seen.No midline shift. Osseous calvarium is intact. If symptoms persist consider MRI. IMPRESSION: 1. Age related atrophic and chronic small vessel ischemic change without acute intracranial process s een at this time.
--- NOTE | 2020-10-30 16:26 | US ---
EXAMINATION TYPE: US carotid duplex BILAT DATE OF EXAM: 10/30/2020 COMPARISON: NONE CLINICAL HISTORY: M54.7 Visual loss. Vision changes EXAM MEASUREMENTS: RIGHT: Peak Systolic Velocity (PSV) cm/sec ----- Right CCA: 63.6 ----- Right ICA: 68.9 ----- Right ECA: 67.1 ICA/CCA ratio: 1.1 RIGHT: End Diastole cm/sec ----- Right CCA: 20.0 ----- Right ICA: 24.6 ----- Right ECA: 18.2 LEFT: Peak Systolic Velocity (PSV) cm/sec ----- Left CCA: 75.8 ----- Left ICA: 68.6 ----- Left ECA: 79.3 ICA/CCA ratio: 0.9 LEFT: End Diastole cm/sec ----- Left CCA: 22.5 ----- Left ICA: 22.5 ----- Left ECA: 19.2 VERTEBRALS (direction of flow): Right Vertebral: Antegrade Left Vertebral: Antegrade Rhythm: Normal No significant stenosis. IMPRESSION: No evidence for hemodynamically significant stenosis. Criteria for Assigning % of Stenosis / Diameter reduction (Estimation based on the indirect measurements of the internal carotid artery velocities (ICA PSV). 1. Normal (no stenosis)=ICA PSV < 125 cm/s: ratio < 2.0: ICA EDV<40 cm/s. 2. Less than 50% stenosis=ICA PSV < 125 cm/s: ratio < 2.0: ICA EDV<40 cm/s. 3. 50 to 69% stenosis=ICA PSV of 125 to 230 cm/s: ration 2.0 ? 4.0: ICA EDV 40-100 cm/s. 4. Greater than 70% stenosis to near occlusion= ICA PSV > 230 cm/s: ratio > 4.0: ICA EDV > 100 cm/s. 5. Near occlusion= ICA PSV velocities may be low or undetectable: variable ratio and ICA EDV. 6. Total occlusion=unable to detect flow.
== END | disposition home or self-care (01) ==
LOC: RADCTMAIN 15:27
PROVIDERS: ATTEND Family Medicine
DX: I67.82 Cerebral ischemia (principal); G31.1 Senile degeneration of brain, not elsewhere classified; H54.7 Unspecified visual loss
CPT/HCPCS: 70450; 93880

== ENCOUNTER → 2020-10-30 | Outpatient (CLI) | payer OTHER ==
--- NOTE | 2020-10-31 08:49 | US ---
EXAMINATION TYPE: US kidneys/renal and bladder DATE OF EXAM: 10/30/2020 COMPARISON: CT & US 2016 CLINICAL HISTORY: N18.30 Chronic Kidney Disease Stage III. CKD stage 3 EXAM MEASUREMENTS: Right Kidney: 8.6 x 3.7 x 3.6 cm Left Kidney: 9.6 x 4.4 x 3.9 cm Right Kidney: small in size, no hydronephrosis, multiple small cystic areas with largest measuring 1. 4cm, multiple echogenic shadowing foci with largest measuring 0.6cm Left Kidney: no hydronephrosis or masses seen, limited by overlying bowel gas Bladder: wnl Bilateral Jets seen: right jet not seen, left jet seen There is no evidence for hydronephrosis at this point in time The urinary bladder is anechoic. Bilat eral ureteral jets are seen. IMPRESSION: 1. Nephrolithiasis right kidney nonobstructing. 2. Right-sided renal cysts.
== END | disposition home or self-care (01) ==
LOC: RADUSWWP 16:14
PROVIDERS: ATTEND Family Medicine
DX: N20.0 Calculus of kidney (principal); N28.1 Cyst of kidney, acquired; N18.30 Chronic kidney disease, stage 3 unspecified
CPT/HCPCS: 76770

== ENCOUNTER → 2020-11-16 | Outpatient (CLI) | payer OTHER ==
[2020-11-16 20:16] LABS: African American GFR (CKD) 44.6 (60.0-200.0); Albumin 4.7 g/dL (3.80-4.90); Albumin/Globulin Ratio 2.24 (1.60-3.17); Anion Gap 9.3 mmol/L (4.00-12.00); BUN/Creat Ratio 15.71 Ratio (12.00-20.00); Calcium 9.8 mg/dL (8.7-10.3); Carbon Dioxide 26.7 mmol/L (21.6-31.8); Globulin 2.1 g/dL (1.6-3.3); Non-African American GFR(CKD) 38.5 (60.0-200.0); Potassium 5.2 mmol/L (3.5-5.5); Total Bilirubin 0.5 mg/dL (0.2-1.2); Total Protein 6.8 g/dL (6.2-8.2)
== END | disposition home or self-care (01) ==
LOC: LABWHC1 10:27
PROVIDERS: ATTEND Internal Medicine
DX: E87.5 Hyperkalemia (principal)
CPT/HCPCS: 36415; 80053

== ENCOUNTER → 2020-12-14 | Outpatient (CLI) | payer OTHER ==
[2020-12-14 10:58] VITALS: BMI 26.3
== END | disposition home or self-care (01) ==
LOC: DBWHC3 08:57
PROVIDERS: ATTEND Nurse Practitioner Family
DX: N18.30 Chronic kidney disease, stage 3 unspecified (principal)
CPT/HCPCS: 97802

== ENCOUNTER → 2021-02-08 | Outpatient (CLI) | payer OTHER ==
[2021-02-08 10:16] LABS: Appearance,Urine Clear (Clear); Bilirubin,Urine Negative (Negative); Blood,Urine Negative (Negative); Color,Urine Light Yellow; Glucose,Urine (UA) Negative (Negative); Ketones,Urine Negative (Negative); Leukocyte Esterase,Urine Trace (Negative); Nitrite,Urine Negative (Negative); PH, Urine 6.5 (5.0-8.0); Protein,Urine Negative (Negative); Specific Gravity,Urine 1.009 (1.001-1.035); Urobilinogen,Urine <2.0 mg/dL (<2.0); WBC,Urine 2 /hpf (0-5)
[2021-02-08 14:36] LABS: HCT 36.8 % (37.2-46.3); HGB 12.1 g/dL (12.0-15.0); MCH 32.4 pg (27.0-32.0); MCHC 32.9 g/dL (32.0-37.0); MCV 98.7 fL (80.0-97.0); Mean Platelet Volume 9.4 fL (9.5-12.2); Platelet Count 250 X 10*3/uL (140-440); RBC 3.73 X 10*6/uL (4.10-5.20); RDW 12.1 % (11.5-14.5); WBC 6.08 X 10*3/uL (4.50-10.00)
[2021-02-08 16:37] LABS: % Iron Saturation 20.07 (12.00-45.00); African American GFR (CKD) 44.3 (60.0-200.0); Albumin 4.7 g/dL (3.80-4.90); Albumin/Globulin Ratio 2.24 (1.60-3.17); Anion Gap 12.1 mmol/L (4.00-12.00); BUN/Creat Ratio 12.86 Ratio (12.00-20.00); Calcium 9.6 mg/dL (8.7-10.3); Carbon Dioxide 24.9 mmol/L (21.6-31.8); Globulin 2.1 g/dL (1.6-3.3); Non-African American GFR(CKD) 38.2 (60.0-200.0); Phosphorus 3.7 mg/dL (2.4-5.1); Potassium 3.7 mmol/L (3.5-5.5); Total Bilirubin 0.5 mg/dL (0.2-1.2); Total Protein 6.8 g/dL (6.2-8.2); Uric Acid 7.5 mg/dL (2.9-7.7)
[2021-02-08 16:46] LABS: Ferritin 262.8 ng/mL (10.0-291.0)
== END | disposition home or self-care (01) ==
LOC: LABWHC1 08:58
PROVIDERS: ATTEND Internal Medicine
DX: D64.9 Anemia, unspecified (principal); E55.9 Vitamin D deficiency, unspecified; N18.32 Chronic kidney disease, stage 3b; N39.0 Urinary tract infection, site not specified; M10.9 Gout, unspecified; N25.81 Secondary hyperparathyroidism of renal origin
CPT/HCPCS: 36415; 80053; 81001; 82306; 82728; 83540; 83550; 83735; 83970; 84100; 84550; 85027

== ENCOUNTER → 2021-02-14 | Outpatient (CLI) | payer OTHER ==
[2021-02-14 15:51] LABS: Basophils # (A) 0.03 X 10*3/uL (0.00-0.10); Basophils % (A) 0.5 %; Eosinophils # (A) 0.14 X 10*3/uL (0.04-0.35); Eosinophils % (A) 2.1 %; HCT 36.4 % (37.2-46.3); HGB 12.1 g/dL (12.0-15.0); Lymphocytes # (A) 1.46 X 10*3/uL (0.90-5.00); Lymphocytes % (A) 22.3 %; MCH 32.7 pg (27.0-32.0); MCHC 33.2 g/dL (32.0-37.0); MCV 98.4 fL (80.0-97.0); Monocytes # (A) 0.76 X 10*3/uL (0.20-1.00); Monocytes % (A) 11.6 %; Neutrophils # (A) 4.15 X 10*3/uL (1.80-7.70); Neutrophils % (A) 63.2 %; Platelet Count 267 X 10*3/uL (140-440); WBC 6.56 X 10*3/uL (4.50-10.00)
[2021-02-14 20:04] LABS: African American GFR (CKD) 48.5 (60.0-200.0); Albumin 4.6 g/dL (3.80-4.90); Albumin/Globulin Ratio 2.19 (1.60-3.17); Anion Gap 12.7 mmol/L (4.00-12.00); BUN/Creat Ratio 11.54 Ratio (12.00-20.00); Calcium 9.7 mg/dL (8.7-10.3); Carbon Dioxide 22.3 mmol/L (21.6-31.8); Globulin 2.1 g/dL (1.6-3.3); Non-African American GFR(CKD) 41.8 (60.0-200.0); Potassium 4.4 mmol/L (3.5-5.5); Total Bilirubin 0.6 mg/dL (0.2-1.2); Total Protein 6.7 g/dL (6.2-8.2)
== END | disposition home or self-care (01) ==
LOC: LABWHC1 08:26
PROVIDERS: ATTEND Psychiatry & Neurology Neurology
DX: H53.2 Diplopia (principal); I10 Essential (primary) hypertension
CPT/HCPCS: 36415; 80053; 85025

== ENCOUNTER → 2021-09-25 | Outpatient (CLI) | payer MEDICARE, OTHER ==
--- NOTE | 2021-09-26 11:59 | MM ---
Reason for exam: screening (asymptomatic). Last mammogram was performed 2 years and 7 months ago. History: Patient is postmenopausal. Physical Findings: A clinical breast exam by your physician is recommended on an annual basis and results should be correlated with mammographic findings. MG 3D Screening Mammo W/Cad Bilateral CC and MLO view(s) were taken. Prior study comparison: February 24, 2019, bilateral MG 3d screening mammo w/cad. February 23, 2018, bilateral MG 3d screening mammo w/cad. There are scattered fibroglandular densities. There is chronic nodularity in the left breast. No significant changes when compared with prior studies. ASSESSMENT: Benign, BI-RAD 2 RECOMMENDATION: Routine screening mammogram of both breasts in 1 year.
== END | disposition home or self-care (01) ==
LOC: RADMAMWWP 07:43
PROVIDERS: ATTEND Family Medicine
DX: Z12.31 Encounter for screening mammogram for malignant neoplasm of breast (principal); Z80.3 Family history of malignant neoplasm of breast
CPT/HCPCS: 77063; 77067

== ENCOUNTER → 2021-11-25 | Outpatient (CLI) | payer MEDICARE ==
[2021-11-25 11:19] LABS: Appearance,Urine Clear (Clear); Bilirubin,Urine Negative (Negative); Blood,Urine Negative (Negative); Color,Urine Yellow; Glucose,Urine (UA) Negative (Negative); Ketones,Urine Negative (Negative); Leukocyte Esterase,Urine Large (Negative); Mucus,Urine Rare /hpf; Nitrite,Urine Negative (Negative); PH, Urine 6.5 (5.0-8.0); Protein,Urine Negative (Negative); RBC,Urine <1 /hpf (0-5); Specific Gravity,Urine 1.014 (1.001-1.035); Squamous Epithelial Cell,Urine <1 /hpf (0-4); Urobilinogen,Urine <2.0 mg/dL (<2.0); WBC,Urine 13 /hpf (0-5)
[2021-11-25 14:13] LABS: Basophils # (A) 0.01 X 10*3/uL (0.00-0.10); Basophils % (A) 0.2 %; Eosinophils # (A) 0.09 X 10*3/uL (0.04-0.35); Eosinophils % (A) 1.9 %; HCT 35.9 % (37.2-46.3); HGB 11.4 g/dL (12.0-15.0); Lymphocytes # (A) 0.82 X 10*3/uL (0.90-5.00); Lymphocytes % (A) 17.4 %; MCH 31.8 pg (27.0-32.0); MCHC 31.8 g/dL (32.0-37.0); MCV 100.3 fL (80.0-97.0); Mean Platelet Volume 10.1 fL (9.5-12.2); Monocytes # (A) 0.54 X 10*3/uL (0.20-1.00); Monocytes % (A) 11.4 %; Neutrophils # (A) 3.25 X 10*3/uL (1.80-7.70); Neutrophils % (A) 68.9 %; Platelet Count 211 X 10*3/uL (140-440); RBC 3.58 X 10*6/uL (4.10-5.20); RDW 11.8 % (11.5-14.5); WBC 4.72 X 10*3/uL (4.50-10.00)
[2021-11-25 14:42] LABS: Magnesium 1.9 mg/dL (1.5-2.4); Uric Acid 6.4 mg/dL (2.9-7.7)
[2021-11-25 14:43] LABS: % Iron Saturation 27.01 (12.00-45.00); African American GFR (CKD) 51.8 (60.0-200.0); Albumin 4.4 g/dL (3.8-4.9); Albumin/Globulin Ratio 1.88 (1.60-3.17); BUN/Creat Ratio 13.98 Ratio (12.00-20.00); Blood Urea Nitrogen 17.2 mg/dL (9.0-27.0); Calcium 9.3 mg/dL (8.7-10.3); Carbon Dioxide 21.8 mmol/L (20.0-27.5); Globulin 2.3 g/dL (1.6-3.3); Non-African American GFR(CKD) 44.7 (60.0-200.0); Phosphorus 3.5 mg/dL (2.4-5.1); Potassium 3.9 mmol/L (3.5-5.5); Total Bilirubin 0.4 mg/dL (0.30-1.20); Total Protein 6.7 g/dL (6.2-8.2)
== END | disposition home or self-care (01) ==
LOC: LABWHC1 08:59
PROVIDERS: ATTEND Internal Medicine
DX: E55.9 Vitamin D deficiency, unspecified (principal); N18.32 Chronic kidney disease, stage 3b; M10.9 Gout, unspecified; N39.0 Urinary tract infection, site not specified; D64.9 Anemia, unspecified; E21.3 Hyperparathyroidism, unspecified
CPT/HCPCS: 36415; 80053; 81001; 82306; 82728; 83540; 83550; 83735; 83970; 84100; 84550; 85025; 87086

== ENCOUNTER → 2022-01-23 | Outpatient (CLI) | payer MEDICARE ==
[2022-01-23 18:26] LABS: Basophils # (A) 0.02 X 10*3/uL (0.00-0.10); Basophils % (A) 0.5 %; Eosinophils # (A) 0.03 X 10*3/uL (0.04-0.35); Eosinophils % (A) 0.7 %; HCT 35.6 % (37.2-46.3); HGB 11.5 g/dL (12.0-15.0); Immature Grans, Automated 0.5 %; Lymphocytes # (A) 0.55 X 10*3/uL (0.90-5.00); Lymphocytes % (A) 13.2 %; MCH 31.9 pg (27.0-32.0); MCHC 32.3 g/dL (32.0-37.0); MCV 98.9 fL (80.0-97.0); Mean Platelet Volume 10.1 fL (9.5-12.2); Monocytes # (A) 0.32 X 10*3/uL (0.20-1.00); Monocytes % (A) 7.7 %; NRBC Per 100 WBC 0 /100 WBCS (0.0-0.0); Neutrophils # (A) 3.24 X 10*3/uL (1.80-7.70); Neutrophils % (A) 77.4 %; Platelet Count 215 X 10*3/uL (140-440); RDW 11.9 % (11.5-14.5); WBC 4.18 X 10*3/uL (4.50-10.00)
[2022-01-23 18:27] LABS: ALT 15 U/L (8-44); AST 18 U/L (13-35); African American GFR (CKD) 44.7 (60.0-200.0); Blood Urea Nitrogen 16.4 mg/dL (9.0-27.0); Calcium 9.7 mg/dL (8.7-10.3); Chloride 97 mmol/L (96-109); Creatine Kinase 45 U/L (26-186); Glucose 95 mg/dL (70-110); Non-African American GFR(CKD) 38.6 (60.0-200.0); Potassium 3.9 mmol/L (3.5-5.5); Sodium 133 mmol/L (135-145); Uric Acid 6.7 mg/dL (2.9-7.7)
[2022-01-23 19:03] LABS: Rheumatoid Factor, Qnt <10 IU/mL (0-15)
[2022-01-23 19:22] LABS: Erythrocyte Sedimentation Rate 12 mm/Hr (0-30)
[2022-01-23 21:25] LABS: Cyclic Citrull Pep IgG Unit <0.5 U/mL; Cyclic Citrullinated Pep IgG NEGATIVE (NEGATIVE)
[2022-01-24 11:37] LABS: HLA B27 NEGATIVE
[2022-01-24 12:58] LABS: Angiotensin-1 Converting Enz. 55 U/L (8-52)
== END | disposition home or self-care (01) ==
LOC: LABWHC1 10:47
PROVIDERS: ATTEND Orthopaedic Surgery
DX: M19.041 Primary osteoarthritis, right hand (principal); M19.032 Primary osteoarthritis, left wrist; M19.031 Primary osteoarthritis, right wrist; M65.4 Radial styloid tenosynovitis [de Quervain]; M18.0 Bilateral primary osteoarthritis of first carpometacarpal joints; M79.644 Pain in right finger(s); M79.642 Pain in left hand; M79.645 Pain in left finger(s); G56.03 Carpal tunnel syndrome, bilateral upper limbs
CPT/HCPCS: 36415; 80048; 82164; 82306; 82550; 83520; 84439; 84443; 84450; 84460; 84550; 85025; 85652; 86038; 86140; 86200; 86431; 86812

== ENCOUNTER 2022-02-06 16:52 | Emergency (ER) | payer MEDICARE ==
[2022-02-06 17:09] VITALS: RESP 16; TEMP 97
[2022-02-06] MEDS ORDERED: ASPIRIN 81 MG PO STA (18:15)
[2022-02-06] MEDS ORDERED: SODIUM CHLORIDE 0.9% 500 ML 500 ML IV STA (18:15)
[2022-02-06] MEDS ORDERED: LORazepam 1 MG TAB PO STA (18:15)
[2022-02-06] MEDS ORDERED: ONDANSETRON 4 MG/2 ML VIAL IVP STA (18:15)
[2022-02-06 18:33] VITALS: BP 143/79; PULSE 70
[2022-02-06 18:40] LABS: Basophils % (A) 0 %; Eosinophils # (A) 0.1 k/uL (0-0.7); Eosinophils % (A) 1 %; HCT 35.9 % (34.0-46.0); HGB 12.1 gm/dL (11.4-16.0); Lymphocytes # (A) 0.8 k/uL (1.0-4.8); Lymphocytes % (A) 11 %; MCH 33.4 pg (25.0-35.0); MCHC 33.8 g/dL (31.0-37.0); MCV 98.7 fL (80.0-100.0); Mean Platelet Volume 7.5; Monocytes # (A) 0.4 k/uL (0-1.0); Monocytes % (A) 5 %; Neutrophils # (A) 5.8 k/uL (1.3-7.7); Neutrophils % (A) 81 %; Platelet Count 178 k/uL (150-450); RBC 3.64 m/uL (3.80-5.40); RDW 12.5 % (11.5-15.5); WBC 7.1 k/uL (3.8-10.6)
[2022-02-06 18:47] LABS: Appearance,Urine Clear (Clear); Bacteria,Urine Rare /hpf; Bilirubin,Urine Negative (Negative); Blood,Urine Negative (Negative); Color,Urine Light Yellow; Glucose,Urine (UA) Negative (Negative); Ketones,Urine Negative (Negative); Leukocyte Esterase,Urine Moderate (Negative); Nitrite,Urine Negative (Negative); PH, Urine 6.5 (5.0-8.0); Protein,Urine Negative (Negative); RBC,Urine 1 /hpf (0-5); Specific Gravity,Urine 1.008 (1.001-1.035); Squamous Epithelial Cell,Urine <1 /hpf (0-4); Urobilinogen,Urine <2.0 mg/dL (<2.0); WBC,Urine 5 /hpf (0-5)
[2022-02-06 19:00] LABS: Albumin 3.8 g/dL (3.5-5.0); Calcium 8.8 mg/dL (8.4-10.2); Magnesium 1.8 mg/dL (1.6-2.3); Potassium 3.6 mmol/L (3.5-5.1); Total Bilirubin 1.1 mg/dL (0.2-1.3); Total Protein 6.5 g/dL (6.3-8.2)
[2022-02-06] MEDS ORDERED: SODIUM CHLORIDE 0.9% 500 ML 500 ML IV ONE (19:06)
[2022-02-06 19:21] LABS: INR 0.9 (<1.2); Prothrombin Time 10.1 sec (9.0-12.0)
--- NOTE | 2022-02-06 19:31 | XR ---
EXAMINATION TYPE: XR chest 2V DATE OF EXAM: 02/06/2022 COMPARISON: NONE HISTORY: Chest pain TECHNIQUE: Frontal and lateral views of the chest are obtained. FINDINGS: There is no focal air space opacity, pleural effusion, or pneumothorax seen. The cardiac silhouette size is within normal limits. The osseous structures are intact. IMPRESSION: No acute cardiopulmonary process.
--- NOTE | 2022-02-06 20:00 | ED ---
General Adult HPI - General Chief complaint: Chest Pain Stated complaint: Chest pressure, anxiety, nausea Time Seen by Provider: 02/06/22 17:32 Source: patient, RN notes reviewed, old records reviewed Mode of arrival: ambulatory Limitations: no limitations - History of Present Illness Initial comments: Patient is a 72-year-old female with past medical history remarkable for anxiety, hypertension, history arthritis, hyperlipidemia he presents with Depa rtment complaining of a 2 day history of chest pressure sensation as well as increased anxiety. Denies any shortness of breath, abdominal pain. Does endorse intermittent nausea. Denies any episodes of vomiting. His no other acute complaints at this time. Presents over concern for the pressure. She states it is occasionally debilitating. This been more or less constant. Denies any radiation. His no other acute complaint at this time. No history cardiac disease. - Related Data Home Medications Medication Instructions Recorded Confirmed Acetaminophen [Tylenol 8 Hour] 650 mg PO BID PRN 10/10/16 11/13/16 Aspirin [Adult Low Dose Aspirin EC] 162 mg PO DAILY 10/10/16 11/13/16 Calcium Carb/Vitamin D3/Vit K1 1 tab PO DAILY 10/10/16 11/13/16 [Citracal-D3 500 mg Soft Chew] Divalproex [Depakote] 250 mg PO DAILY 10/10/16 11/13/16 Pravastatin Sodium [Pravachol] 20 mg PO HS 10/10/16 11/13/16 nadoloL [Corgard] 20 mg PO DAILY 10/10/16 11/13/16 Citracal Tab 1 tab PO DAILY 11/04/16 11/13/16 Gabapentin [Neurontin] 100 mg PO BID 11/04/16 11/13/16 Omeprazole 20 mg PO DAILY 11/04/16 11/13/16 Ondansetron [Zofran ODT] 8 mg PO Q8HR PRN 11/04/16 11/13/16 Previous Rx's Medication Instructions Recorded Aspirin 325 mg PO BID #60 tab 11/15/16 HYDROcodone/APAP 10-325MG [[place] 1 - 2 each PO Q6H PRN #90 tab 11/15/16 10-325] Ramipril 5 mg PO DAILY #0 11/15/16 Sennosides-Docusate Sodium 2 tab PO DAILY #60 tablet 11/15/16 [Senokot-S] diazePAM [Valium] 5 mg PO BID PRN #20 tab 11/15/16 hydrOXYzine pamoate [Vistaril] 25 mg PO QID PRN #40 cap 11/15/16 Allergies Allergy/AdvReac Type Severity Reaction Status Date / Time lactose Allergy Unknown Verified 02/06/22 17:05 Milk Containing Products Allergy Unknown Verified 02/06/22 17:05 [Dairy] [place] [employer] Derivatives AdvReac Unknown Verified 02/06/22 17:05 [[place]] tramadol [From Ultram] AdvReac caused Verified 02/06/22 17:05 depression and anxiety Review of Systems ROS Statement: Those systems with pertinent positive or pertinent negative responses have been documented in the HPI. Review of Systems: CONST: Denies fever EYES: Denies blurry vision ENT: Denies nasal congestion C/V: Endorses chest pressure RESP: Denies shortness of breath GI: Denies abdominal pain : Denies dysuria SKIN: Denies rash. MSK: Denies joint pain. NEURO: Denies headache ROS Other: All systems not noted in ROS Statement are negative. 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 History of Any Multi-Drug Resistant Organisms: None Reported Past Surgical History: Hysterectomy Additional Past Surgical History / Comment(s): alex eyelid surgery, egd/colonosocpy, 11-13-16 left total knee Past Anesthesia/Blood Transfusion Reactions: No Reported Reaction Additional Past Anesthesia/Blood Transfusion Reaction / Comment(s): clausterphobia Past Psychological History: Depression Smoking Status: Never smoker Past Alcohol Use History: Occasional Past Drug Use History: None Reported - Past Family History Mother Family Medical History: Myocardial Infarction ([place]) Additional Family Medical History / Comment(s): cabg General Exam - General Exam Comments Initial Comments: General: Appears in no acute distress. HEAD: Normal with no signs of head trauma. EYES: PERRLA, EOMI, conjunctiva normal, no discharge. ENT: Hearing grossly intact, normal oropharynx. RESPIRATORY: Clear breath sounds bilaterally. No wheezes, rales, or rhonchi. C/V: Regular rate and rhythm. S1 and S2 auscultated, no edema, peripheral pulses 2+ and intact throughout ABD: Abd is soft, nontender, nondistended EXT: Normal range of motion, no obvious deformity SKIN: No rashes or lesions observed on exposed skin. NEURO: Alert and oriented x 4. Cranial nerves II-XII intact. No focal sensory or strength deficits. NIH is 0. GCS is 15. Limitations: no limitations Course Vital Signs 02/06/22 02/06/22 17:05 18:32 Temperature 97 F L Pulse Rate 98 70 Respiratory 16 16 Rate Blood Pressure 123/77 143/79 O2 Sat by Pulse 97 96 Oximetry Medical Decision Making - Medical Decision Making Based on the patient's presentation and physical exam, I'm concerned for acute cardiopulmonary process for the patient. Is also highly likely that could be anxiety or panic attack, she states she feels extremely anxious lately and this has happened previously. However due to her age and risk factors that would like to obtain a cardiac workup as well. She was in agreement with this plan. She'll be given an aspirin, Ativan, as well as IV fluids and Zofran. EKG showed no signs of acute ischemia. Chest x-ray reveals no acute cardiopulmonary process. Laboratory studies are remarkable for a mild hyponatremia with the patient is receiving IV fluids. She has a history of CK D with a slightly elevated creatinine. Troponin is negative. Urinalysis is unremarkable. Remainder the labs are unremarkable. Reevaluation come patient is feeling improved. Symptoms have resolved. Heart score is low at 3. I discussed results with the patient. She would like to go home. I believe this is reasonable. Strict return precautions were discussed. I instructed the patient to follow up with their PCP in the next 3 days. I explained that the patient should return to the emergency department if they experience any worsening symptoms. Strict return precautions were discussed with the patient. The patient expressed understanding of these instructions. I answered all questions that the patient had. The patient was discharged home in good condition with their prescriptions and follow up information. - Lab Data Result diagrams: 02/06/22 18:17 03/31/22 18:17 Lab Results 02/06/22 02/06/22 02/06/22 Range/Units 18:17 18:17 18:17 WBC 7.1 (3.8-10.6) k/uL RBC 3.64 L (3.80-5.40) m/uL Hgb 12.1 (11.4-16.0) gm/dL Hct 35.9 (34.0-46.0) % MCV 98.7 (80.0-100.0) fL MCH 33.4 (25.0-35.0) pg MCHC 33.8 (31.0-37.0) g/dL RDW 12.5 (11.5-15.5) % Plt Count 178 (150-450) k/uL MPV 7.5 Neutrophils % 81 % Lymphocytes % 11 % Monocytes % 5 % Eosinophils % 1 % Basophils % 0 % Neutrophils # 5.8 (1.3-7.7) k/uL Lymphocytes # 0.8 L (1.0-4.8) k/uL Monocytes # 0.4 (0-1.0) k/uL Eosinophils # 0.1 (0-0.7) k/uL Basophils # 0.0 (0-0.2) k/uL PT 10.1 (9.0-12.0) sec INR 0.9 (<1.2) APTT 24.0 (22.0-30.0) sec Sodium (137-145) mmol/L Potassium (3.5-5.1) mmol/L Chloride (98-107) mmol/L Carbon Dioxide (22-30) mmol/L Anion Gap mmol/L BUN (7-17) mg/dL Creatinine (0.52-1.04) mg/dL Est GFR (CKD-EPI)AfAm (>60 ml/min/1.73 sqM) Est GFR (CKD-EPI)NonAf (>60 ml/min/1.73 sqM) Glucose (74-99) mg/dL Calcium (8.4-10.2) mg/dL Magnesium (1.6-2.3) mg/dL Total Bilirubin (0.2-1.3) mg/dL AST (14-36) U/L ALT (4-34) U/L Alkaline Phosphatase (38-126) U/L Troponin I (0.000-0.034) ng/mL Total Protein (6.3-8.2) g/dL Albumin (3.5-5.0) g/dL Urine Color Light Yellow Urine Appearance Clear (Clear) Urine pH 6.5 (5.0-8.0) Ur Specific [place] 1.008 (1.001-1.035) Urine Protein Negative (Negative) Urine Glucose (UA) Negative (Negative) Urine Ketones Negative (Negative) Urine Blood Negative (Negative) Urine Nitrite Negative (Negative) Urine Bilirubin Negative (Negative) Urine Urobilinogen <2.0 (<2.0) mg/dL Ur Leukocyte Esterase Moderate H (Negative) Urine RBC 1 (0-5) /hpf Urine WBC 5 (0-5) /hpf Ur Squamous Epith Cells <1 (0-4) /hpf Urine Bacteria Rare H (None) /hpf 02/06/22 02/06/22 Range/Units 18:17 18:17 WBC (3.8-10.6) k/uL RBC (3.80-5.40) m/uL Hgb (11.4-16.0) gm/dL Hct (34.0-46.0) % MCV (80.0-100.0) fL MCH (25.0-35.0) pg MCHC (31.0-37.0) g/dL RDW (11.5-15.5) % Plt Count (150-450) k/uL MPV Neutrophils % % Lymphocytes % % Monocytes % % Eosinophils % % Basophils % % Neutrophils # (1.3-7.7) k/uL Lymphocytes # (1.0-4.8) k/uL Monocytes # (0-1.0) k/uL Eosinophils # (0-0.7) k/uL Basophils # (0-0.2) k/uL PT (9.0-12.0) sec INR (<1.2) APTT (22.0-30.0) sec Sodium 122 L (137-145) mmol/L Potassium 3.6 (3.5-5.1) mmol/L Chloride 93 L (98-107) mmol/L Carbon Dioxide 21 L (22-30) mmol/L Anion Gap 8 mmol/L BUN 20 H (7-17) mg/dL Creatinine 1.25 H (0.52-1.04) mg/dL Est GFR (CKD-EPI)AfAm 51 (>60 ml/min/1.73 sqM) Est GFR (CKD-EPI)NonAf 44 (>60 ml/min/1.73 sqM) Glucose 81 (74-99) mg/dL Calcium 8.8 (8.4-10.2) mg/dL Magnesium 1.8 (1.6-2.3) mg/dL Total Bilirubin 1.1 (0.2-1.3) mg/dL AST 24 (14-36) U/L ALT 16 (4-34) U/L Alkaline Phosphatase 55 (38-126) U/L Troponin I <0.012 (0.000-0.034) ng/mL Total Protein 6.5 (6.3-8.2) g/dL Albumin 3.8 (3.5-5.0) g/dL Urine Color Urine Appearance (Clear) Urine pH (5.0-8.0) Ur Specific [place] (1.001-1.035) Urine Protein (Negative) Urine Glucose (UA) (Negative) Urine Ketones (Negative) Urine Blood (Negative) Urine Nitrite (Negative) Urine Bilirubin (Negative) Urine Urobilinogen (<2.0) mg/dL Ur Leukocyte Esterase (Negative) Urine RBC (0-5) /hpf Urine WBC (0-5) /hpf Ur Squamous Epith Cells (0-4) /hpf Urine Bacteria (None) /hpf - EKG Data -: EKG Interpreted by Me EKG Comments: 12-lead Electrocardiogram Interpretation Note EKG was reviewed and interpreted by myself. 12-lead ECG performed at 1717 is interpreted by me as revealing normal sinus rhythm at a rate of 71 beats per minute. [place] is normal. [place] interval is 181 ms, QRS duration 75 ms, QTc is 409 ms.. There were no ST or T wave abnormalities to suggest myocardial ischemia or injury. R wave progression across the precordium was satisfactory. By my interpretation this EKG is non-diagnostic for acute ischemia. Disposition Clinical Impression: Chest pain of unknown etiology, Anxiety Disposition: HOME SELF-CARE Condition: Good Instructions (If sedation given, give patient instructions): Chest Pain (ED) Is patient prescribed a controlled substance at d/c from ED?: No Referrals: Husam Evans MD [Primary Care Provider] - 1-2 days
== END 2022-02-06 20:48 | disposition home or self-care (01) ==
LOC: EC 16:52
DX: F41.9 Anxiety disorder, unspecified (principal); R07.89 Other chest pain; I10 Essential (primary) hypertension; E78.5 Hyperlipidemia, unspecified; F32.A Depression, unspecified; M19.90 Unspecified osteoarthritis, unspecified site; Z79.82 Long term (current) use of aspirin; Z79.899 Other long term (current) drug therapy
CPT/HCPCS: 36415; 93005; 80053; 83735; 84484; 85025; 85610; 85730; 81001; 71046; 99285; 96374; 96361; J2405

== ENCOUNTER → 2022-02-18 | Outpatient (CLI) | payer MEDICARE ==
[2022-02-18 23:45] LABS: Anion Gap 14.4 mmol/L (10.00-18.00); BUN/Creat Ratio 12.17 Ratio (12.00-20.00); Blood Urea Nitrogen 14.6 mg/dL (9.0-27.0); Calcium 9.5 mg/dL (8.7-10.3); Carbon Dioxide 21.6 mmol/L (20.0-27.5); Non-African American GFR(CKD) 45.8 (60.0-200.0); Potassium 4.3 mmol/L (3.5-5.5)
== END | disposition home or self-care (01) ==
LOC: LABWHC1 15:09
PROVIDERS: ATTEND Internal Medicine
DX: N18.32 Chronic kidney disease, stage 3b (principal)
CPT/HCPCS: 36415; 80048

== ENCOUNTER → 2022-03-24 | Outpatient (CLI) | payer MEDICARE ==
[2022-03-24 08:10] LABS: Appearance,Urine Clear (Clear); Bilirubin,Urine Negative (Negative); Blood,Urine Negative (Negative); Color,Urine Yellow; Glucose,Urine (UA) Negative (Negative); Ketones,Urine Negative (Negative); Leukocyte Esterase,Urine Negative (Negative); Nitrite,Urine Negative (Negative); PH, Urine 7.5 (5.0-8.0); Protein,Urine Negative (Negative); Specific Gravity,Urine 1.011 (1.001-1.035); Urobilinogen,Urine <2.0 mg/dL (<2.0)
[2022-03-24 10:49] LABS: Basophils # (A) 0.01 X 10*3/uL (0.00-0.10); Basophils % (A) 0.2 %; Eosinophils # (A) 0.08 X 10*3/uL (0.04-0.35); Eosinophils % (A) 1.7 %; HCT 36.3 % (37.2-46.3); HGB 11.6 g/dL (12.0-15.0); Immature Grans, Automated 0.2 %; Lymphocytes # (A) 0.84 X 10*3/uL (0.90-5.00); Lymphocytes % (A) 17.4 %; MCH 31.9 pg (27.0-32.0); MCV 99.7 fL (80.0-97.0); Mean Platelet Volume 9.5 fL (9.5-12.2); Monocytes # (A) 0.47 X 10*3/uL (0.20-1.00); Monocytes % (A) 9.7 %; NRBC Per 100 WBC 0 /100 WBCS (0.0-0.0); Neutrophils # (A) 3.43 X 10*3/uL (1.80-7.70); Neutrophils % (A) 70.8 %; Platelet Count 245 X 10*3/uL (140-440); RBC 3.64 X 10*6/uL (4.10-5.20); RDW 12.6 % (11.5-14.5); WBC 4.84 X 10*3/uL (4.50-10.00)
[2022-03-24 11:00] LABS: % Iron Saturation 25.09 (12.00-45.00); Albumin 4.1 g/dL (3.8-4.9); Albumin/Globulin Ratio 1.47 (1.60-3.17); Anion Gap 9.3 mmol/L (10.00-18.00); BUN/Creat Ratio 16.59 Ratio (12.00-20.00); Blood Urea Nitrogen 20.9 mg/dL (9.0-27.0); Calcium 9.5 mg/dL (8.7-10.3); Carbon Dioxide 24.1 mmol/L (20.0-27.5); Globulin 2.8 g/dL (1.6-3.3); Magnesium 2.2 mg/dL (1.5-2.4); Non-African American GFR(CKD) 43.1 (60.0-200.0); Phosphorus 3.5 mg/dL (2.4-5.1); Potassium 4.1 mmol/L (3.5-5.5); Total Bilirubin 0.4 mg/dL (0.30-1.20); Total Protein 6.9 g/dL (6.2-8.2); Uric Acid 5.6 mg/dL (2.9-7.7)
== END | disposition home or self-care (01) ==
LOC: LABWHC1 07:04
PROVIDERS: ATTEND Nurse Practitioner Family
DX: E21.3 Hyperparathyroidism, unspecified (principal); E55.9 Vitamin D deficiency, unspecified; M10.9 Gout, unspecified; N39.0 Urinary tract infection, site not specified; D64.9 Anemia, unspecified; N18.32 Chronic kidney disease, stage 3b
CPT/HCPCS: 36415; 80053; 81003; 82306; 82728; 83540; 83550; 83735; 83970; 84100; 84550; 85025

== ENCOUNTER → 2022-07-07 | Outpatient (CLI) | payer MEDICARE ==
[2022-07-07 15:33] LABS: HCT 33.7 % (37.2-46.3); HGB 11.1 g/dL (12.0-15.0); MCH 32.7 pg (27.0-32.0); MCHC 32.9 g/dL (32.0-37.0); MCV 99.4 fL (80.0-97.0); Mean Platelet Volume 8.8 fL (9.5-12.2); NRBC Per 100 WBC 0 /100 WBCS (0.0-0.0); Platelet Count 264 X 10*3/uL (140-440); RBC 3.39 X 10*6/uL (4.10-5.20); RDW 12.1 % (11.5-14.5); WBC 4.35 X 10*3/uL (4.50-10.00)
[2022-07-07 17:28] LABS: % Iron Saturation 34.19 (12.00-45.00); African American GFR (CKD) 54.7 (60.0-200.0); Albumin/Globulin Ratio 1.53 (1.60-3.17); Anion Gap 11.9 mmol/L (10.00-18.00); BUN/Creat Ratio 10.6 Ratio (12.00-20.00); Blood Urea Nitrogen 12.4 mg/dL (9.0-27.0); Calcium 9.4 mg/dL (8.7-10.3); Carbon Dioxide 25.3 mmol/L (20.0-27.5); Globulin 2.6 g/dL (1.6-3.3); Non-African American GFR(CKD) 47.2 (60.0-200.0); Phosphorus 3.8 mg/dL (2.4-5.1); Potassium 5.1 mmol/L (3.5-5.5); Total Bilirubin 0.4 mg/dL (0.30-1.20); Total Protein 6.6 g/dL (6.2-8.2); Uric Acid 4.7 mg/dL (2.9-7.7)
[2022-07-07 17:51] LABS: Appearance,Urine Clear (Clear); Bilirubin,Urine Negative (Negative); Blood,Urine Negative (Negative); Color,Urine Yellow (Yellow); Ketones,Urine Negative (Negative); Nitrite,Urine Negative (Negative); Specific Gravity,Urine 1.008 (1.001-1.030)
[2022-07-07 18:00] LABS: Bacteria,Urine None Seen /HPF (None Seen)
== END | disposition home or self-care (01) ==
LOC: LABWHC1 08:12
PROVIDERS: ATTEND Nurse Practitioner Family
DX: D64.9 Anemia, unspecified (principal); E55.9 Vitamin D deficiency, unspecified; M10.9 Gout, unspecified; N18.32 Chronic kidney disease, stage 3b; N39.0 Urinary tract infection, site not specified; N25.81 Secondary hyperparathyroidism of renal origin
CPT/HCPCS: 36415; 80053; 81001; 82306; 82728; 83540; 83550; 83735; 83970; 84100; 84550; 85027

== ENCOUNTER 2022-08-16 19:13 | Inpatient (IN) | payer MEDICARE ==
[2022-08-16] MEDS ORDERED: SODIUM CHLORIDE 0.9% 1,000 ML IV STA (23:54)
[2022-08-16] MEDS ORDERED: ONDANSETRON 4 MG/2 ML VIAL IVP STA (23:55)
[2022-08-16] MEDS ORDERED: MECLIZINE 12.5 MG TAB PO STA (23:55)
--- NOTE | 2022-08-16 23:55 | ED ---
Dizziness HPI - General Chief Complaint: Dizziness Stated Complaint: vertigo Time Seen by Provider: 08/16/22 23:54 Source: patient, RN notes reviewed, old records reviewed Mode of arrival: ambulatory Limitations: no limitations - History of Present Illness Initial Comments: This is a 72-year-old female to the ER today for evaluation. This patient prese nts today for evaluation regards to what she describes as vertigo. History of vertigo. The same. No headache. Patient is no nausea vomiting. No recent illness, no recent change in medications. No trauma no fevers MD Complaint: dizziness, lightheadedness -: hour(s) Timing: gradual onset, constant Description: "room spinning", lightheadedness, off-balance History of Same: Yes History of Trauma: No Severity: moderate Improves With: remaining still Worsens With: movement Associated Symptoms: ataxia, loss of appetite - Related Data Home Medications Medication Instructions Recorded Confirmed Acetaminophen [Tylenol 8 Hour] 650 mg PO BID PRN 10/10/16 11/13/16 Aspirin [Adult Low Dose Aspirin EC] 162 mg PO DAILY 10/10/16 11/13/16 Calcium Carb/Vitamin D3/Vit K1 1 tab PO DAILY 10/10/16 11/13/16 [Citracal-D3 500 mg Soft Chew] Divalproex [Depakote] 250 mg PO DAILY 10/10/16 11/13/16 Pravastatin Sodium [Pravachol] 20 mg PO HS 10/10/16 11/13/16 nadoloL [Corgard] 20 mg PO DAILY 10/10/16 11/13/16 Citracal Tab 1 tab PO DAILY 11/04/16 11/13/16 Gabapentin [Neurontin] 100 mg PO BID 11/04/16 11/13/16 Omeprazole 20 mg PO DAILY 11/04/16 11/13/16 Ondansetron [Zofran ODT] 8 mg PO Q8HR PRN 11/04/16 11/13/16 Previous Rx's Medication Instructions Recorded Aspirin 325 mg PO BID #60 tab 11/15/16 HYDROcodone/APAP 10-325MG [[place] 1 - 2 each PO Q6H PRN #90 tab 11/15/16 10-325] Ramipril 5 mg PO DAILY #0 11/15/16 Sennosides-Docusate Sodium 2 tab PO DAILY #60 tablet 11/15/16 [Senokot-S] diazePAM [Valium] 5 mg PO BID PRN #20 tab 11/15/16 hydrOXYzine pamoate [Vistaril] 25 mg PO QID PRN #40 cap 11/15/16 Allergies Allergy/AdvReac Type Severity Reaction Status Date / Time lactose Allergy Unknown Verified 08/16/22 19:39 Milk Containing Products Allergy Unknown Verified 08/16/22 19:39 [Dairy] [place] And Derivatives AdvReac Unknown Verified 08/16/22 19:39 [[place]] tramadol [From Ultram] AdvReac caused Verified 08/16/22 19:39 depression and anxiety Review of Systems ROS Statement: Those systems with pertinent positive or pertinent negative responses have been documented in the HPI. ROS Other: All systems not noted in ROS Statement are negative. 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 History of Any Multi-Drug Resistant Organisms: None Reported Past Surgical History: Hysterectomy Additional Past Surgical History / Comment(s): alex eyelid surgery, egd/colonosocpy, 11-13-16 left total knee Past Anesthesia/Blood Transfusion Reactions: No Reported Reaction Additional Past Anesthesia/Blood Transfusion Reaction / Comment(s): clausterphobia Past Psychological History: Depression Smoking Status: Never smoker Past Alcohol Use History: Occasional Past Drug Use History: None Reported - Past Family History Mother Family Medical History: Myocardial Infarction ([place]) Additional Family Medical History / Comment(s): cabg General Exam Limitations: no limitations General appearance: alert, in no apparent distress Head exam: Present: atraumatic, normocephalic, normal inspection Eye exam: Present: normal appearance, PERRL, EOMI. Absent: scleral icterus, conjunctival injection, periorbital swelling ENT exam: Present: normal exam, mucous membranes moist Neck exam: Present: normal inspection. Absent: tenderness, meningismus, lymphadenopathy Respiratory exam: Present: normal lung sounds bilaterally. Absent: respiratory distress, wheezes, rales, rhonchi, stridor Cardiovascular Exam: Present: regular rate, normal rhythm, normal heart sounds. Absent: systolic murmur, diastolic murmur, rubs, gallop, clicks GI/Abdominal exam: Present: soft, normal bowel sounds. Absent: distended, tenderness, guarding, rebound, rigid Extremities exam: Present: normal inspection, full ROM, normal capillary refill. Absent: tenderness, pedal edema, joint swelling, calf tenderness Back exam: Present: normal inspection Neurological exam: Present: alert, oriented X3, CN II-XII intact Psychiatric exam: Present: normal affect, normal mood Skin exam: Present: warm, dry, intact, normal color. Absent: rash Course Vital Signs 08/16/22 08/17/22 08/17/22 19:37 01:17 02:06 Temperature 97.4 F L Pulse Rate 70 81 81 Respiratory 18 16 16 Rate Blood Pressure 189/103 183/97 148/84 O2 Sat by Pulse 98 97 92 L Oximetry - Reevaluation(s) Reevaluation #1: 08/17/22 02:16 Medical record is reviewed Reevaluation #2: 08/17/22 02:16 Patient symptoms are improved Reevaluation #3: 08/17/22 02:16 Patient informed results and questions answered - Consultations Consultation #1: Spoke with sound who will admit this patient EKG Findings - EKG Comments: EKG Findings:: EKG is sinus 68 [place] 187 QRS 78 QTc 433 Medical Decision Making - Medical Decision Making 72 female to the emergency department for evaluation. Patient will be admitted for management of headache and vertiginous symptoms - Lab Data Result diagrams: 08/17/22 00:19 08/17/22 00:19 Lab Results 08/17/22 08/17/22 08/17/22 Range/Units 00:19 00:19 00:19 WBC 6.1 (3.8-10.6) k/uL RBC 3.76 L (3.80-5.40) m/uL Hgb 12.4 (11.4-16.0) gm/dL Hct 35.0 (34.0-46.0) % MCV 93.0 (80.0-100.0) fL MCH 33.0 (25.0-35.0) pg MCHC 35.5 (31.0-37.0) g/dL RDW 12.7 (11.5-15.5) % Plt Count 289 (150-450) k/uL MPV 7.1 Neutrophils % 82 % Lymphocytes % 12 % Monocytes % 4 % Eosinophils % 1 % Basophils % 0 % Neutrophils # 5.0 (1.3-7.7) k/uL Lymphocytes # 0.8 L (1.0-4.8) k/uL Monocytes # 0.2 (0-1.0) k/uL Eosinophils # 0.0 (0-0.7) k/uL Basophils # 0.0 (0-0.2) k/uL PT 10.1 (9.0-12.0) sec INR 0.9 (<1.2) APTT 22.1 (22.0-30.0) sec Sodium 126 L (137-145) mmol/L Potassium 3.8 (3.5-5.1) mmol/L Chloride 88 L (98-107) mmol/L Carbon Dioxide 25 (22-30) mmol/L Anion Gap 13 mmol/L BUN 13 (7-17) mg/dL Creatinine 0.91 (0.52-1.04) mg/dL Est GFR (CKD-EPI)AfAm 74 (>60 ml/min/1.73 sqM) Est GFR (CKD-EPI)NonAf 64 (>60 ml/min/1.73 sqM) Glucose 106 H (74-99) mg/dL Calcium 9.8 (8.4-10.2) mg/dL Total Bilirubin 0.7 (0.2-1.3) mg/dL AST 26 (14-36) U/L ALT 20 (4-34) U/L Alkaline Phosphatase 83 (38-126) U/L Troponin I (0.000-0.034) ng/mL Total Protein 7.8 (6.3-8.2) g/dL Albumin 4.5 (3.5-5.0) g/dL 08/17/22 Range/Units 00:19 WBC (3.8-10.6) k/uL RBC (3.80-5.40) m/uL Hgb (11.4-16.0) gm/dL Hct (34.0-46.0) % MCV (80.0-100.0) fL MCH (25.0-35.0) pg MCHC (31.0-37.0) g/dL RDW (11.5-15.5) % Plt Count (150-450) k/uL MPV Neutrophils % % Lymphocytes % % Monocytes % % Eosinophils % % Basophils % % Neutrophils # (1.3-7.7) k/uL Lymphocytes # (1.0-4.8) k/uL Monocytes # (0-1.0) k/uL Eosinophils # (0-0.7) k/uL Basophils # (0-0.2) k/uL PT (9.0-12.0) sec INR (<1.2) APTT (22.0-30.0) sec Sodium (137-145) mmol/L Potassium (3.5-5.1) mmol/L Chloride (98-107) mmol/L Carbon Dioxide (22-30) mmol/L Anion Gap mmol/L BUN (7-17) mg/dL Creatinine (0.52-1.04) mg/dL Est GFR (CKD-EPI)AfAm (>60 ml/min/1.73 sqM) Est GFR (CKD-EPI)NonAf (>60 ml/min/1.73 sqM) Glucose (74-99) mg/dL Calcium (8.4-10.2) mg/dL Total Bilirubin (0.2-1.3) mg/dL AST (14-36) U/L ALT (4-34) U/L Alkaline Phosphatase (38-126) U/L Troponin I <0.012 (0.000-0.034) ng/mL Total Protein (6.3-8.2) g/dL Albumin (3.5-5.0) g/dL - Radiology Data Radiology results: report reviewed (CT brain negative for acute disease), image reviewed Disposition Clinical Impression: Headache, Nausea & vomiting, Vertigo, Benign paroxysmal positional vertigo Disposition: ADMITTED IP TO THIS [facility] Condition: Good Is patient prescribed a controlled substance at d/c from ED?: No Referrals: Husam Evans MD [Primary Care Provider] - 1-2 days Time of Disposition: 02:10
[2022-08-17 00:26] LABS: Basophils % (A) 0 %; Eosinophils % (A) 1 %; HGB 12.4 gm/dL (11.4-16.0); Lymphocytes # (A) 0.8 k/uL (1.0-4.8); Lymphocytes % (A) 12 %; MCHC 35.5 g/dL (31.0-37.0); Mean Platelet Volume 7.1; Monocytes # (A) 0.2 k/uL (0-1.0); Monocytes % (A) 4 %; Neutrophils % (A) 82 %; Platelet Count 289 k/uL (150-450); RBC 3.76 m/uL (3.80-5.40); RDW 12.7 % (11.5-15.5); WBC 6.1 k/uL (3.8-10.6)
[2022-08-17 00:35] LABS: INR 0.9 (<1.2); Partial Thromboplastin Time 22.1 sec (22.0-30.0); Prothrombin Time 10.1 sec (9.0-12.0)
[2022-08-17 00:36] LABS: Albumin 4.5 g/dL (3.5-5.0); Calcium 9.8 mg/dL (8.4-10.2); Potassium 3.8 mmol/L (3.5-5.1); Total Bilirubin 0.7 mg/dL (0.2-1.3); Total Protein 7.8 g/dL (6.3-8.2)
--- NOTE | 2022-08-17 00:51 | CT ---
EXAMINATION TYPE: CT brain wo con for TPA DATE OF EXAM: 08/16/2022 COMPARISON: 10/30/2020 HISTORY: C/O HEADACHE & DIZZIENESS, FEELS LIKE THE ROOM IS SPINNING, H/O VERTIGO BUT SAYS THIS IS THE WROST SHE'S HAD IT, LIGHTS MAKING IT WORSE CT DLP: 1147.4 mGycm Automated exposure control for dose reduction was used. Images of the brain obtained without contrast. Ventricles have normal size. There is no mass effect or midline shift. No sign of intracranial hemorr perla. The calvarium is intact. The skull base is intact. There is normal aeration of the mastoid sinu ses. IMPRESSION: Negative unenhanced head CT scan. No change compared to old exam.
[2022-08-17] MEDS ORDERED: diphenhydrAMINE 50 MG/ML 1 ML VIAL IVP STA (01:16)
[2022-08-17] MEDS: KETOROLAC 15 MG/ML 1 ML VIAL IVP STA ×2 (01:19→01:24)
[2022-08-17] MEDS ORDERED: MORPHINE SULFATE 4 MG/ML SYRINGE IVP STA (01:23)
[2022-08-17] MEDS ORDERED: SODIUM CHLORIDE 0.9% 500 ML 500 ML IV STA (02:11)
[2022-08-17] MEDS ORDERED: NALOXONE 0.4 MG/ML 1 ML VIAL IV PRN (02:12)
[2022-08-17] MEDS ORDERED: ACETAMINOPHEN TAB 325 MG TAB PO PRN (02:12)
[2022-08-17] MEDS ORDERED: ONDANSETRON 4 MG/2 ML VIAL IVP PRN (02:12)
[2022-08-17] MEDS ORDERED: PROCHLORPERAZINE INJ 10 MG/2 ML VIAL IVP STA (02:14)
[2022-08-17] MEDS ORDERED: SODIUM CHLORIDE 0.9% 1,000 ML IV SCH (02:15)
[2022-08-17] MEDS: SODIUM CHLORIDE 0.9% 1,000 ML IV SCH ×3 (02:39→19:10)
[2022-08-17 03:24] LABS: Appearance,Urine Clear (Clear); Bacteria,Urine Rare /hpf; Bilirubin,Urine Negative (Negative); Blood,Urine Negative (Negative); Color,Urine Light Yellow; Glucose,Urine (UA) Negative (Negative); Ketones,Urine Negative (Negative); Leukocyte Esterase,Urine Trace (Negative); Nitrite,Urine Negative (Negative); PH, Urine 7.5 (5.0-8.0); Protein,Urine Negative (Negative); RBC,Urine 1 /hpf (0-5); Specific Gravity,Urine 1.005 (1.001-1.035); Squamous Epithelial Cell,Urine 1 /hpf (0-4); Urobilinogen,Urine <2.0 mg/dL (<2.0); WBC,Urine 2 /hpf (0-5)
--- NOTE | 2022-08-17 05:39 | P.HPIM ---
History of Present Illness H&P Date: 08/17/22 The patient is a 72-year-old female with a PMH of chronic migraines and chronic vertigo (unknown etiology) who presented to the emergency room with complaints of dizziness, nausea, vomiting. Patient reports a long-standing history of vertigo for the past numerous years for which she reports following up with subspecialists. Reports that her symptoms recently are worse 48 hours ago and that she has been unable to move her head and walk around as a result. She reports several episodes of vomiting due to nausea whenever she attempts to walk or move her head or eyes. Denies experiencing unilateral weakness or headache. Also denies chest pain, shortness of breath, abdominal pain, diarrhea. CT brain in the emergency room was unremarkable. Laboratory evaluation was remarkable for sodium 126, chloride 88, and an unremarkable UA. Review of systems: Pertinent positives and negatives as discussed in HPI, a complete review of systems was performed and all other systems are negative. Physical examination: General: non toxic, no distress, appears at stated age, overweight Derm: no unusual rashes/lesions, warm Head: atraumatic, normocephalic, symmetric Eyes: EOMI, no lid lag, anicteric sclera, pupils equal round reactive to light, no nystagmus noted ENT: Nose and ears atraumatic Neck: No cervical lymphadenopathy, trachea midline, supple Mouth: no lip lesion, mucus membranes moist Cardiovascular: S1S2 reg, no murmur, positive dorsalis pedis pulse bilateral, no edema Lungs: CTA bilateral, no rhonchi, no rales, no accessory muscle use Abdominal: soft, nontender to palpation, no guarding Ext: muscle strength 5 out of 5 in all 4 extremities grossly, no gross muscle atrophy, no contractures, Neuro: CN II-XI grossly intact, no gross focal neuro deficits Psych: Alert, oriented, appropriate affect Assessment/plan Vertigo, unclear etiology, chronic -Neurology consult -Continue with Antivert -Fall precautions DVT prophylaxis -Heparin subcu The patient is admitted with an anticipated greater than 2 midnight stay for evaluation of vertigo. CODE STATUS: Full Code Discussed with: Patient Anticipated discharge date: 2-[address]: Home Past Medical History Past Medical History: Hyperlipidemia, Hypertension, Osteoarthritis (OA) Additional Past Medical History / Comment(s): migraines, pt stated" has had decreased appetite thought she was having trouble with her galllbladder but after testing stated it turned out she had- gastritis,hiatal hernia and lactose intoerance-pt stated she lost 25 # since january 2016", constipation, arthritis, intermittent vertigo.had pne vaccine less than 5 years ago but not sure of date, office closed. History of Any Multi-Drug Resistant Organisms: None Reported Past Surgical History: Hysterectomy Additional Past Surgical History / Comment(s): alex eyelid surgery, egd/colonosocpy, 11-13-16 left total knee Past Anesthesia/Blood Transfusion Reactions: No Reported Reaction Additional Past Anesthesia/Blood Transfusion Reaction / Comment(s): clausterphobia Past Psychological History: Depression Smoking Status: Never smoker Past Alcohol Use History: Occasional Past Drug Use History: None Reported - Past Family History Mother Family Medical History: Myocardial Infarction ([place]) Additional Family Medical History / Comment(s): cabg Medications and Allergies Home Medications Medication Instructions Recorded Confirmed Type Acetaminophen [Tylenol 8 Hour] 650 mg PO BID PRN 10/10/16 11/13/16 History Aspirin [Adult Low Dose Aspirin EC] 162 mg PO DAILY 10/10/16 11/13/16 History Calcium Carb/Vitamin D3/Vit K1 1 tab PO DAILY 10/10/16 11/13/16 History [Citracal-D3 500 mg Soft Chew] Divalproex [Depakote] 250 mg PO DAILY 10/10/16 11/13/16 History Pravastatin Sodium [Pravachol] 20 mg PO HS 10/10/16 11/13/16 History nadoloL [Corgard] 20 mg PO DAILY 10/10/16 11/13/16 History Citracal Tab 1 tab PO DAILY 11/04/16 11/13/16 History Gabapentin [Neurontin] 100 mg PO BID 11/04/16 11/13/16 History Omeprazole 20 mg PO DAILY 11/04/16 11/13/16 History Ondansetron [Zofran ODT] 8 mg PO Q8HR PRN 11/04/16 11/13/16 History Aspirin 325 mg PO BID #60 tab 11/15/16 Rx HYDROcodone/APAP 10-325MG [[place] 1 - 2 each PO Q6H PRN #90 tab 11/15/16 Rx 10-325] Ramipril 5 mg PO DAILY #0 11/15/16 11/13/16 Rx Sennosides-Docusate Sodium 2 tab PO DAILY #60 tablet 11/15/16 Rx [Senokot-S] diazePAM [Valium] 5 mg PO BID PRN #20 tab 11/15/16 Rx hydrOXYzine pamoate [Vistaril] 25 mg PO QID PRN #40 cap 11/15/16 Rx Allergies Allergy/AdvReac Type Severity Reaction Status Date / Time lactose Allergy Unknown Verified 08/16/22 19:39 Milk Containing Products Allergy Unknown Verified 08/16/22 19:39 [Dairy] [place] And Derivatives AdvReac Unknown Verified 08/16/22 19:39 [[place]] tramadol [From Ultram] AdvReac caused Verified 08/16/22 19:39 depression and anxiety Physical Exam Vitals: Vital Signs Temp Pulse Resp BP Pulse Ox 08/17/22 02:06 81 16 148/84 92 L 08/17/22 01:17 81 16 183/97 97 08/16/22 19:37 97.4 F L 70 18 189/103 98 Intake and Output 08/16/22 08/16/22 08/17/22 14:59 22:59 06:59 Other: Weight 68.039 kg Results CBC & Chem 7: 08/17/22 00:19 08/17/22 00:19 Labs: Abnormal Lab Results - Last 24 Hours (Table) 08/17/22 08/17/22 08/17/22 Range/Units 00:19 00:19 02:47 RBC 3.76 L (3.80-5.40) m/uL Lymphocytes # 0.8 L (1.0-4.8) k/uL Sodium 126 L (137-145) mmol/L Chloride 88 L (98-107) mmol/L Glucose 106 H (74-99) mg/dL Ur Leukocyte Esterase Trace H (Negative) Urine Bacteria Rare H (None) /hpf
[2022-08-17] MEDS ORDERED: HEPARIN SODIUM,PORCINE/PF 5,000 UNIT/0.5 ML SYRINGE SQ SCH (08:00)
[2022-08-17] MEDS: MORPHINE SULFATE 4 MG/ML SYRINGE IV PRN ×2 (09:58→20:16)
[2022-08-17] MEDS: HEPARIN SODIUM,PORCINE/PF 5,000 UNIT/0.5 ML SYRINGE SQ SCH ×3 (09:58→20:16)
[2022-08-17] MEDS ORDERED: MECLIZINE 25 MG TAB PO STA (12:58)
[2022-08-17] MEDS ORDERED: ALPRAZolam 0.25 MG TAB PO PRN (14:00)
--- NOTE | 2022-08-17 14:10 | P.EN ---
Hospitalist Interval Note Patient seen and examined at bedside. Vital signs reviewed General: [non toxic], [no distress], [appears at stated age] Derm: [warm], [dry] Head: [atraumatic], [normocephalic], [symmetric] Eyes: [EOMI], [no lid lag], [anicteric sclera] Mouth: [no lip lesion], [mucus membranes moist] Cardiovascular: [S1S2 reg], [no murmur], [positive posterior tibial pulse bilateral], Lungs: [CTA bilateral], [no rhonchi, no rales] , [no accessory muscle use] Abdominal: [soft], [ nontender to palpation], [no guarding], [no appreciable organomegaly] Ext: [no gross muscle atrophy], [no edema], [no contractures] Neuro: [ CN II-XI grossly intact], [no focal neuro deficits] Psych: [Alert], [oriented], [appropriate affect] Assessment/Plan: Acute on chronic symptomatic hyponatremia Consern for SIADH given the patient's recent use of SSRI CTD stage IIIa Consulted nephrology appreciates recs Labs in the a.m. Acute on chronic vertigo unclear etiology This is an update note for patient , for full note on 08/17.
--- NOTE | 2022-08-17 15:41 | P.CNNES ---
History of Present Illness Consult date: 08/17/22 Requesting physician: Syed Simmons Reason for Consult: Headache, vertigo History of Present Illness: Patient is a 72-year-old female came to the hospital yesterday at 7:13 PM for evaluation of vertigo and nausea and vomiting. Patient has previous history of vertigo as mentioned below. Patient states that yesterday at around 6 PM, she was scrolling through her phone, and she believes that she did too fast, and she developed immediate severe vertigo, unable to read and everything was jumbled up. She sat up and vomited. The vertigo lasted for about 15 seconds. Afterwards she was very concerned and asked her to take her to the hospital. She was very careful not to move too fast afterwards. She vomited 2 different times with dizziness and vertigo. Patient's symptoms of vertigo started 20 years ago when she had vertigo. She went to ER and was given Antivert. She underwent some physical therapy, perhaps vestibular rehabilitation and the symptoms gradually resolved in a couple weeks. She was mostly fine except for some transient dizzy spells, until earlier this year when symptoms have started again. Patient states that since January she has been having slight dizziness off and on. In June the vertigo got worse and she would feel vertigo whenever she rolls over in the bed, right or left. Rapid movement causes vertigo. She is very careful with movement, and tries to do very slow. When she looks up or down, makes her unsteady. Bright lights also makes her dizzy. On asking about head trauma, patient states that apparently she tripped on the front porch, fell face forward on 11/23/2021. She could not tell how long after the fall the symptoms started. She has started using cane in the last 2 weeks. Family is also noticing some personality change. She feels like "a drunk". Patient's family states that in spring of this year, while she was coming from [place], had to black puller because of anxiety. She felt like she was having a heart attack. She also family to get her from there. Patient also has history of migraines for which she follows up with Dr. Harrington. She did not have any migraine for several months. Last couple of months she has been having migraines with nausea, that last for "daze". Dr. Kahn has started patient on Depakote 250 mg daily and Corgard 20 mg daily for migraine prophylaxis. Patient denies any tinnitus, or hearing loss or any pops. She did suffer from ear infection on 07/30/2022 for which she was given antibiotics. Vital signs on arrival blood pressure 189/103, pulse rate 70, temperature 97.4. Most recent blood pressure 148/84. Blood test shows normal WBC and CBC. PT/PTT normal, sodium 126, potassium 3.8, normal renal functions. Hepatic panel is normal. Troponin negative, UA is negative. CT head showed negative unenhanced computed tomography scan. I personally reviewed CT head and agree with the findings. Visualized paranasal sinuses are mostly clear, with some polyp in the right maxillary sinus. EKG shows sinus rhythm. Possible left atrial enlargement. Patient previously had a MRA of the neck with and without contrast on 04/12/2018, which was normal. Vertebral arteries were patent. MRI of the cervical spine from 04/16/2018 showed disc bulging C3 4 through C6 7. This appears greatest at C5 6 causing moderate anterior thecal sac compression without cord deformity or contact. MRI of brain from 04/12/2018 showed mild periventricular white matter severe changes. Home medications include hydralazine 100 mg 3 times a day, Corgard 20 mg, Depakote: 50-gram daily. She does not take gabapentin. Does not take Valium however does take Xanax as needed. Review of Systems Constitutional: Denies chills, Denies fever Eyes: denies blurred vision, denies pain, denies loss of vision Ears: deny: decreased hearing, ear discharge, earache, tinnitus Ears, nose, mouth and throat: Reports headache, Denies sore throat Cardiovascular: Denies chest pain, Denies shortness of breath Respiratory: Denies cough Gastrointestinal: Denies abdominal pain, Denies diarrhea, Denies nausea, Denies vomiting Genitourinary: Denies dysuria, Denies hematuria Musculoskeletal: Denies myalgias Integumentary: Denies pruritus, Denies rash Neurological: Reports as per HPI Psychiatric: Reports anxiety, Denies depression Endocrine: Denies fatigue, Denies weight change Hematologic/Lymphatic: Denies easy bruising Allergic/Immunologic: Denies persistent infections Past Medical History Past Medical History: Hyperlipidemia, Hypertension, Osteoarthritis (OA) Additional Past Medical History / Comment(s): migraines, pt stated" has had decreased appetite thought she was having trouble with her galllbladder but after testing stated it turned out she had- gastritis,hiatal hernia and lactose intoerance-pt stated she lost 25 # since january 2016", constipation, arthritis, intermittent vertigo.had pne vaccine less than 5 years ago but not sure of date, office closed. History of Any Multi-Drug Resistant Organisms: None Reported Past Surgical History: Hysterectomy Additional Past Surgical History / Comment(s): alex eyelid surgery, egd/colonosocpy, 11-13-16 left total knee Past Anesthesia/Blood Transfusion Reactions: No Reported Reaction Additional Past Anesthesia/Blood Transfusion Reaction / Comment(s): clausterphobia Past Psychological History: Depression Smoking Status: Never smoker Past Alcohol Use History: Occasional Past Drug Use History: None Reported - Past Family History Mother Family Medical History: Myocardial Infarction ([place]) Additional Family Medical History / Comment(s): cabg Medications and Allergies Home Medications Medication Instructions Recorded Confirmed Type Aspirin [Adult Low Dose Aspirin EC] 81 mg PO DAILY 10/10/16 08/17/22 History Pravastatin Sodium [Pravachol] 20 mg PO HS 10/10/16 08/17/22 History nadoloL [Corgard] 20 mg PO DAILY 10/10/16 08/17/22 History Ondansetron [Zofran ODT] 8 mg PO Q8H PRN 11/04/16 08/17/22 History ALPRAZolam [Xanax] 0.25 mg PO DAILY PRN 08/17/22 08/17/22 History DULoxetine HCL [Cymbalta] 60 mg PO DAILY 08/17/22 08/17/22 History Divalproex ER [Depakote ER] 250 mg PO DAILY 08/17/22 08/17/22 History Iron Complex 8mg 1 tab PO TUFR 08/17/22 08/17/22 History Prevagen 1 tab PO DAILY 08/17/22 08/17/22 History Psyllium Husk [Metamucil] 0.4 gm PO BID 08/17/22 08/17/22 History hydrALAZINE HCL [Apresoline] 100 mg PO TID 08/17/22 08/17/22 History Allergies Allergy/AdvReac Type Severity Reaction Status Date / Time lactose Allergy Unknown Verified 08/17/22 12:55 Milk Containing Products Allergy Unknown Verified 08/17/22 12:55 [Dairy] [place] And Derivatives AdvReac Unknown Verified 08/17/22 12:55 [[place]] tramadol [From Ultram] AdvReac caused Verified 08/17/22 12:55 depression and anxiety Physical Examination - Vital Signs Vital Signs: Vital Signs Temp Pulse Resp BP Pulse Ox 08/17/22 02:06 81 16 148/84 92 L 08/17/22 01:17 81 16 183/97 97 08/16/22 19:37 97.4 F L 70 18 189/103 98 Intake and Output 08/16/22 08/17/22 08/17/22 22:59 06:59 14:59 Other: Weight 68.039 kg Patient is an elderly female, in no acute distress. Patient is alert awake oriented to time place and person. Speech and language functions are normal. Patient can name and repeat very well. No aphasia or dysarthria. Attention, concentration and fund of knowledge is adequate. On cranial nerve examination, pupils are equal, round and reacting to light, visual simon are full on confrontation, with no neglect on double simultaneous stimulation. Extraocular muscles are intact with no nystagmus. Face is symmetric, tongue protrudes to the midline. Palatal elevation and sensation normal, hearing is normal for finger rubbing bilaterally and shoulder shrug normal, facial sensation normal. On muscle strength testing, there is no pronator drift and the strength is normal in arms and legs distally and proximally. Deep tendon reflexes are symmetric biceps 1+, brachioradialis 1+, knees 2, ankles 1+ and plantars downgoing bilaterally. Sensory to touch is equal with no neglect on double simultaneous stimulation. Cerebellar function showed no ataxia for [id number] testing on either side. No dysdiadochokinesia. No ataxia for [id number] testing on either side. Tone and bulk of muscles normal. Gait deferred.. On general examination, there is no carotid bruit or murmur, S1-S2 audible. Chest is clear on consultation. Abdomen is soft nontender. No organomegaly, bowel sounds present. Peripheral pulses are present. No edema. Results - Laboratory Findings CBC and BMP: 08/17/22 00:19 08/17/22 11:40 Abnormal Lab Findings: Abnormal Labs 08/17/22 08/17/22 08/17/22 00:19 00:19 02:47 RBC 3.76 L Lymphocytes # 0.8 L Sodium 126 L Chloride 88 L Glucose 106 H Ur Leukocyte Esterase Trace H Urine Bacteria Rare H Assessment and Plan Assessment: * Benign positional peripheral vertigo. Patient has history of BPPV 20 years ago, that resolved after possible some rehabilitation. The symptoms have reappeared sometime after she suffered from a fall on 11/23/2021, when she fell face forward due to tripping on the curb. Patient has positional vertigo, which is worse on rolling over [id number], but also with up-and-edin n head movement. * Migraine headaches * Anxiety disorder * Hyponatremia * Hypertension * Hyperlipidemia * Osteoarthritis Plan: * Continue Antivert as needed. * Patient will benefit from vestibular rehabilitation. * PT OT, evaluate gait and to consider vestibular rehabilitation. Otherwise may need outpatient referral. * Checked B12, folate. B12 440, folic acid 14.40. * Treatment of hyponatremia as per internal medicine. * Neurologically clear. Dr. Anthony Mcdonald will be starting neurology service in the morning for any neurological concerns. * Thank you for the consult.
[2022-08-17] MEDS: DIVALPROEX ER 250 MG TAB.ER.24H PO SCH (15:55)
[2022-08-17] MEDS: hydrALAZINE HCL 50 MG TAB PO SCH ×2 (15:56→20:16)
[2022-08-17] MEDS: DULoxetine HCL 60 MG CAPSULE.DR PO SCH (15:58)
[2022-08-17] MEDS: BUTALB/APAP/CAFF 50-325-40MG TAB PO PRN (17:56)
[2022-08-17] MEDS: PSYLLIUM HUSK 100% 6 GM PACKET PO SCH (20:15)
[2022-08-17] MEDS: PRAVASTATIN SODIUM 20 MG TAB PO SCH (20:16)
[2022-08-18] MEDS: SODIUM CHLORIDE 0.9% 1,000 ML IV SCH ×3 (01:00→23:20)
[2022-08-18] MEDS: ASPIRIN 81 MG PO SCH (08:12)
[2022-08-18] MEDS: DIVALPROEX ER 250 MG TAB.ER.24H PO SCH (08:12)
[2022-08-18] MEDS: DULoxetine HCL 60 MG CAPSULE.DR PO SCH (08:12)
[2022-08-18] MEDS: HEPARIN SODIUM,PORCINE/PF 5,000 UNIT/0.5 ML SYRINGE SQ SCH ×3 (08:12→23:49)
[2022-08-18] MEDS: PSYLLIUM HUSK 100% 6 GM PACKET PO SCH ×2 (08:12→20:23)
[2022-08-18] MEDS: hydrALAZINE HCL 50 MG TAB PO SCH ×3 (08:13→20:23)
--- NOTE | 2022-08-18 08:55 | P.PN ---
Subjective Progress Note Date: 08/18/22 I'm seeing the patient for the first time during this hospital visit. Please refer to Dr. Young's note for further details. The patient is accompanied with her daughter was at bedside. The patient stated that she's been having dizziness and she feels the dizziness is mostly with head movement or position and alleviated with headrest. She had a hard time describing the the dizziness but she feels unsteady on her feet feel dizzy and has been going on for months possibly 5-6 month as worsened since June and since this past Thursday a got even worse in which she had an episode of nausea vomiting numbness around her lips and the had a hard time looking on her phone and making out the word. She feels drastically better today compared to her initial presentation. She denies of any focal weakness, difficulty swallowing. Denies any history of stroke. Denies any further numbness. Objective - Vital Signs Vital signs: Vital Signs Temp 97.6 F 08/18/22 03:07 Pulse 81 08/18/22 03:07 Resp 16 08/18/22 03:07 BP 138/76 08/18/22 03:07 Pulse Ox 97 08/18/22 03:07 FiO2 Intake & Output 08/17/22 08/18/22 08/18/22 18:59 06:59 18:59 Intake Total 236 Output Total 1250 700 Balance -1014 -700 Weight 68.039 kg Intake: Oral 236 Output: Urine 1250 700 Other: # Bowel Movements 0 - Exam GENERAL: The patient is lying in bed and is not in acute distress. NEUROLOGICAL: Higher mental function: The patient is awake, alert, oriented to self, place and time. Patient is following commands. No aphasia and no neglect. Cranial nerves: The pupils are round, equal and reactive to light and accommodation. Visual simon are full to confrontation throughout. Extraocular movement is intact no nystagmus is noted. Facial sensation is normal to touch throughout. The facial strength is normal throughout. Hearing is mildly decreased bilaterally to hand rub. Tongue is midline and moved [id number] without any difficulty. No dysarthria is noted. Shoulder shrug is normal bilaterally. Motor: Gait si taking small steps but not swaying towards one side or other and not requiring assistance walking but did on start because of concern of fall. The strength is 5 over 5 throughout. Normal tone and bulk. Cerebellum: Normal finger to nose heel to dai bilaterally. Sensation: Sensation is normal to touch throughout. - Labs CBC & Chem 7: 08/17/22 00:19 08/17/22 11:40 Labs: Abnormal Lab Results - Last 24 Hours (Table) 08/17/22 08/17/22 Range/Units 00:19 11:40 Sodium 127 L (137-145) mmol/L Osmolality 264 L (280-301) mosm/kg Assessment and Plan Assessment: * Acute on chronic vertigo. Appears peripheral rather than central. Current feels drastically better. * Benign positional peripheral vertigo. Patient has history of BPPV 20 years ago, that resolved after possible some rehabilitation. The symptoms have reappeared sometime after she suffered from a fall on 11/23/2021, when she fell face forward due to tripping on the curb. Patient has positional vertigo, which is worse on rolling over [id number], but also with up-and-down head movement. * Migraine headaches * Anxiety disorder * Hyponatremia * Hypertension * Hyperlipidemia * Osteoarthritis Plan: * Ordered MRI Brain w/ and w/o to rule out central cause (unlikely). Nephrology ordered carotid duplex because of vertigo. * Continue Antivert as needed. * Patient will benefit from vestibular rehabilitation as outpatient and recommend patient to follow-up with ENT as outpatient if continues to have vertigo. * Checked B12, folate. B12 440, folic acid 14.40. * Treatment of hyponatremia as per internal medicine. Nephrology is on board. * Continue to follow-up with Dr. Kahn (neurologist) as outpatient within 3 weeks. If MRI Brain is unremarkable then patient is clear for discharge from neurological perspective. The plan is discussed with the patient, her daughter who is at bedside and nurse. Anthony Mcdonald M.D. Neuro-Hospitalist Time with Patient: Less than 30
[2022-08-18 09:02] LABS: African American GFR (CKD) 75.1 (60.0-200.0); Anion Gap 8.2 mmol/L (10.00-18.00); BUN/Creat Ratio 12.89 Ratio (12.00-20.00); Blood Urea Nitrogen 11.6 mg/dL (9.0-27.0); Calcium 8.4 mg/dL (8.7-10.3); Carbon Dioxide 23.8 mmol/L (20.0-27.5); Magnesium 1.7 mg/dL (1.5-2.4); Non-African American GFR(CKD) 64.8 (60.0-200.0); Phosphorus 3.4 mg/dL (2.4-5.1); Potassium 4.4 mmol/L (3.5-5.5)
[2022-08-18 09:10] LABS: Basophils # (A) 0.01 X 10*3/uL (0.00-0.10); Basophils % (A) 0.2 %; Eosinophils # (A) 0.03 X 10*3/uL (0.04-0.35); Eosinophils % (A) 0.7 %; HCT 31.6 % (37.2-46.3); HGB 10.8 g/dL (12.0-15.0); Immature Grans, Automated 0.2 %; Lymphocytes # (A) 0.71 X 10*3/uL (0.90-5.00); Lymphocytes % (A) 17.5 %; MCH 32.6 pg (27.0-32.0); MCHC 34.2 g/dL (32.0-37.0); MCV 95.5 fL (80.0-97.0); Mean Platelet Volume 8.7 fL (9.5-12.2); Monocytes # (A) 0.24 X 10*3/uL (0.20-1.00); Monocytes % (A) 5.9 %; NRBC Per 100 WBC 0 /100 WBCS (0.0-0.0); Neutrophils # (A) 3.06 X 10*3/uL (1.80-7.70); Neutrophils % (A) 75.5 %; Platelet Count 217 X 10*3/uL (140-440); RBC 3.31 X 10*6/uL (4.10-5.20); RDW 12.8 % (11.5-14.5); WBC 4.06 X 10*3/uL (4.50-10.00)
--- NOTE | 2022-08-18 09:12 | P.NPCON ---
History of Present Illness - Reason for Consult hyponatremia - History of Present Illness Reason for consultation: Hyponatremia and chronic kidney disease History of present illness: Patient is a 72-year-old female seen in renal consultation for chronic kidney disease and hyponatremia. Patient has chronic kidney disease stage III a with baseline creatinine in the range of 11.3 secondary to nephrosclerosis and chronic interstitial nephritis from nonsteroidal use. GFR is currently at baseline. Patient presented to the hospital due to symptoms of vertigo. Patient states she felt the room spinning when she turned her head to either side. Patient also admits to gait unsteadiness. She also states she vomited twice prior to admission. Sodium was 126 on admission and is 128 today. She is currently receiving normal saline at 1 30 mL an hour. She denies excessive fluid intake. Denies history of malignancy. Denies use of thiazide diuretics. No chest pain or shortness of breath. No edema. Good urine output. No hematuria. Blood pressure stable. Denies use of nonsteroidals. Patient does take Depakote which she has been on several years as well as Cymbalta which was started about 6 months ago. Vital signs are stable. General: Awake. No acute distress. HEENT: Head exam is unremarkable. LUNGS: Breath sounds decreased. HEART: Rate and Rhythm are regular. ABDOMEN: Soft, no distention. EXTREMITITES: No edema. 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 History of Any Multi-Drug Resistant Organisms: None Reported Past Surgical History: Hysterectomy Additional Past Surgical History / Comment(s): alex eyelid surgery, egd/colonosocpy, 11-13-16 left total knee Past Anesthesia/Blood Transfusion Reactions: No Reported Reaction Additional Past Anesthesia/Blood Transfusion Reaction / Comment(s): clausterphobia Past Psychological History: Depression Smoking Status: Never smoker Past Alcohol Use History: Occasional Past Drug Use History: None Reported - Past Family History Mother Family Medical History: Myocardial Infarction (NM) Additional Family Medical History / Comment(s): cabg Medications and Allergies Home Medications Medication Instructions Recorded Confirmed Type Aspirin [Adult Low Dose Aspirin EC] 81 mg PO DAILY 10/10/16 08/17/22 History Pravastatin Sodium [Pravachol] 20 mg PO HS 10/10/16 08/17/22 History nadoloL [Corgard] 20 mg PO DAILY 10/10/16 08/17/22 History Ondansetron [Zofran ODT] 8 mg PO Q8H PRN 11/04/16 08/17/22 History ALPRAZolam [Xanax] 0.25 mg PO DAILY PRN 08/17/22 08/17/22 History DULoxetine HCL [Cymbalta] 60 mg PO DAILY 08/17/22 08/17/22 History Divalproex ER [Depakote ER] 250 mg PO DAILY 08/17/22 08/17/22 History Iron Complex 8mg 1 tab PO TUFR 08/17/22 08/17/22 History Prevagen 1 tab PO DAILY 08/17/22 08/17/22 History Psyllium Husk [Metamucil] 0.4 gm PO BID 08/17/22 08/17/22 History hydrALAZINE HCL [Apresoline] 100 mg PO TID 08/17/22 08/17/22 History Allergies Allergy/AdvReac Type Severity Reaction Status Date / Time lactose Allergy Unknown Verified 08/17/22 12:55 Milk Containing Products Allergy Unknown Verified 08/17/22 12:55 [Dairy] Bureau And Derivatives AdvReac Unknown Verified 08/17/22 12:55 [Bureau] tramadol [From Ultram] AdvReac caused Verified 08/17/22 12:55 depression and anxiety Physical Exam Vitals: Vital Signs Temp Pulse Resp BP BP Pulse Ox 08/18/22 07:00 98.0 F 76 16 162/84 97 08/18/22 03:07 97.6 F 81 16 138/76 97 08/17/22 19:55 98.3 F 74 16 133/72 97 08/17/22 14:47 98.0 F 75 18 130/79 93 L 08/17/22 14:00 75 18 Intake and Output 08/17/22 08/18/22 08/18/22 22:59 06:59 14:59 Output Total 700 Balance -700 Output: Urine 700 Other: # Bowel Movements 0 Results - Lab Results Most recent lab results Calcium 9.8 mg/dL (8.4-10.2) 08/17/22 00:19 08/17/22 00:19 08/17/22 11:40 Assessment and Plan Plan: Assessment: 1. 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 Sodium level 128 today. Urine osmolality 287. 2. Chronic kidney disease stage III with baseline creatinine 11.3 secondary to nephrosclerosis and chronic interstitial nephritis from nonsteroidal use. 3. Acute and chronic vertigo. Neurology following. Brain CT showed no acute changes. MRI and carotid ultrasound pending. 4. Hypertension with chronic kidney disease. Stable. Plan: Decrease rate of normal saline to 75 mL an hour. Check TSH. 1200 mL fluid restriction. Encouraged oral intake. If no significant improvement in sodium level tomorrow, will give dose of Samsca. Consider alternatives to Depakote and Cymbalta. Negative for the consultation. I will continue to follow the patient with you during her hospital stay.
[2022-08-18] MEDS ORDERED: MAGNESIUM SULFATE-D5W PMX 1 GM in DEXTROSE/WATER 1 100ML.BAG IVPB ONE (10:00)
--- NOTE | 2022-08-18 14:44 | US ---
EXAMINATION TYPE: US carotid duplex BILAT DATE OF EXAM: 08/18/2022 COMPARISON: Carotid ultrasound 10/30/2020. CLINICAL HISTORY: toure neck pain. Vertigo, no h/o stroke TECHNIQUE: Carotid duplex ultrasound examination. Indirect Doppler criteria was utilized. 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 Criteria for Assigning % of Stenosis / Diameter reduction (Estimation based on the indirect measurements of the internal carotid artery velocities (ICA PSV). 1. Normal (no stenosis)=ICA PSV < 125 cm/s: ratio < 2.0: ICA EDV<40 cm/s. 2. Less than 50% stenosis=ICA PSV < 125 cm/s: ratio < 2.0: ICA EDV<40 cm/s. 3. 50 to 69% stenosis=ICA PSV of 125 to 230 cm/s: ration 2.0 ? 4.0: ICA EDV 40-100 cm/s. 4. Greater than 70% stenosis to near occlusion= ICA PSV > 230 cm/s: ratio > 4.0: ICA EDV > 100 cm/s. 5. Near occlusion= ICA PSV velocities may be low or undetectable: variable ratio and ICA EDV. 6. Total occlusion=unable to detect flow.
--- NOTE | 2022-08-18 15:07 | P.PN ---
Subjective Progress Note Date: 08/18/22 The patient is a 72-year-old female with chronic migraines, chronic vertigo (unknown etiology), and osteoarthritis who presented to the emergency room with complaints of dizziness, nausea, vomiting. CT brain in the emergency room was unremarkable. Laboratory evaluation was remarkable for sodium 126, chloride 88, and an unremarkable UA. She was started on IV fluids and arrangements were made for admission. Patient underwent carotid ultrasound which showed no significant hemodynamic stenosis. She was followed by neurology and nephrology. Patient seen and examined at bedside. She continues to have difficulty reading. She gets extremely dizzy with any movements of her eyes or head. She denies any nausea, vomiting, shortness of breath General: nontoxic, no distress, appears at stated age Derm: warm, dry Head: atraumatic, normocephalic, symmetric Eyes: EOMI, no lid lag, anicteric sclera Mouth: no lip lesion, mucus membranes moist Cardiovascular: S1S2 reg, no murmur, positive posterior tibial pulse bilateral, Lungs: CTA bilateral, no rhonchi, no rales , no accessory muscle use Abdominal: soft, nontender to palpation, no guarding, no appreciable organomegaly Ext: no gross muscle atrophy, no edema, no contractures Neuro: CN II-XI grossly intact, no focal neuro deficits Psych: Alert, oriented, appropriate affect Assessment/plan: Severe hyponatremia CKD III -Nephrology recommendations appreciated -Concerns for possible SIADH in conjunction with Depakote and Cymbalta -Urine osmolality 287 -Continue with IV fluids -Await TSH -Stop Cymbalta Vertigo -Continue Antivert -Carotids negative -Await MRI -B12 and folic acid within normal Hypertension -Continue with hydralazine, nadolol -Follow blood pressures Dyslipidemia -Statin DVT prophylaxis: Early ambulation Discussed with:, Nursing Anticipated discharge: In a.m. Anticipated discharge place: home A total of 35 minutes was spent on the care of this complex patient more than 50% of the time was spent in counseling and care coordination. Objective - Vital Signs Vital signs: Vital Signs Temp 98.0 F 08/18/22 07:00 Pulse 76 08/18/22 08:00 Resp 16 08/18/22 08:00 BP 162/84 08/18/22 07:00 Pulse Ox 97 08/18/22 07:00 FiO2 Intake & Output 1008/18/22 08/18/22 18:59 06:59 18:59 Intake Total 236 240 Output Total 1250 700 Balance -1014 -700 240 Weight 68.039 kg Intake: Oral 236 240 Output: Urine 1250 700 Other: # Bowel Movements 0 - Labs CBC & Chem 7: 08/18/22 06:05 08/18/22 06:05 Labs: Abnormal Lab Results - Last 24 Hours (Table) 08/18/22 08/18/22 Range/Units 06:05 06:05 WBC 4.06 L (4.50-10.00) X 10*3/uL RBC 3.31 L (4.10-5.20) X 10*6/uL Hgb 10.8 L (12.0-15.0) g/dL Hct 31.6 L (37.2-46.3) % MCH 32.6 H (27.0-32.0) pg MPV 8.7 L (9.5-12.2) fL Lymphocytes # 0.71 L (0.90-5.00) X 10*3/uL Eosinophils # 0.03 L (0.04-0.35) X 10*3/uL Sodium 128 L (135-145) mmol/L Anion Gap 8.20 L (10.00-18.00) mmol/L Calcium 8.4 L (8.7-10.3) mg/dL
[2022-08-18] MEDS ORDERED: LORazepam 1 MG/0.5 ML VIAL IV ONE (16:30)
--- NOTE | 2022-08-18 18:30 | MR ---
EXAMINATION TYPE: MR brain wo/w con DATE OF EXAM: 08/18/2022 COMPARISON: 04/12/2018 HISTORY: Headache, vertigo, N & V. CONTRAST: Standard multiplanar, multisequence MRI departmental protocol images were obtained without contrast a nd with 7 mL intravenous Gadavist gadolinium contrast. The diffusion images show no evidence of an acute infarct. There is some mild cerebral cortical atrop hy. There is no mass effect nor midline shift. On the T2 and FLAIR images there are some poorly lora nated areas of mild increased signal in the periventricular white matter. The brainstem is intact. Th e corpus callosum is intact. Sella turcica appears normal. No evidence of orbital mass. There is a si ngle focus of 5 mm increased signal in the left centrum semiovale. Contrast images show no pathologic enhancement. There is normal enhancement of the venous sinuses. IMPRESSION: There is some diffuse mild increased signal in the periventricular white matter without much change c ompared to old exam and could relate to age-related white matter disease. No evidence of cortical inf arct. No acute intracranial abnormality.
[2022-08-18] MEDS: PRAVASTATIN SODIUM 20 MG TAB PO SCH (20:23)
[2022-08-19 07:47] LABS: African American GFR (CKD) 78 (>60 ml/min/1.73 sqM); Anion Gap 7 mmol/L; Blood Urea Nitrogen 11 mg/dL (7-17); Calcium 8.1 mg/dL (8.4-10.2); Carbon Dioxide 21 mmol/L (22-30); Chloride 97 mmol/L (98-107); Glucose 92 mg/dL (74-99); Non-African American GFR(CKD) 67 (>60 ml/min/1.73 sqM); Potassium 3.5 mmol/L (3.5-5.1); Sodium 125 mmol/L (137-145)
[2022-08-19] MEDS ORDERED: TOLVAPTAN 15 MG 1/2 TABLET PO ONE (08:21)
[2022-08-19] MEDS ORDERED: IRON POLYSACCHARIDES COMPLEX 150 MG CAP PO SCH (09:00)
[2022-08-19] MEDS: HEPARIN SODIUM,PORCINE/PF 5,000 UNIT/0.5 ML SYRINGE SQ SCH ×3 (09:18→21:30)
[2022-08-19] MEDS: DIVALPROEX ER 250 MG TAB.ER.24H PO SCH (09:19)
[2022-08-19] MEDS: PSYLLIUM HUSK 100% 6 GM PACKET PO SCH ×2 (09:19→21:29)
[2022-08-19] MEDS: ASPIRIN 81 MG PO SCH (09:19)
[2022-08-19] MEDS: hydrALAZINE HCL 50 MG TAB PO SCH ×3 (09:19→21:30)
[2022-08-19] MEDS ORDERED: POTASSIUM CHLORIDE ER 20 MEQ TAB.ER PO STA (11:13)
--- NOTE | 2022-08-19 11:15 | P.PN ---
Subjective Patient is seen in follow-up for hyponatremia. Receiving IV fluids. Sodium level dropped to 125. Oral intake fair. No vomiting or diarrhea. No chest pain or shortness of breath. Has been voiding. GFR at baseline. Vital sig No acute distress.ns are stable. General: The patient appeared well nourished and normally developed. HEENT: Head exam is unremarkable. LUNGS: Breath sounds decreased. HEART: Rate and Rhythm are regular. ABDOMEN: Soft, no distention. EXTREMITITES: No edema. Objective - Vital Signs Vital signs: Vital Signs Temp 99.3 F 08/19/22 07:20 Pulse 80 08/19/22 07:20 Resp 18 08/19/22 07:20 BP 154/80 08/19/22 07:20 Pulse Ox 96 08/19/22 07:20 FiO2 Intake & Output 08/18/22 08/19/22 08/19/22 18:59 06:59 18:59 Intake Total 240 118 Output Total 400 400 Balance -160 -400 118 Intake: Oral 240 118 Output: Urine 400 400 Other: # Voids 1 1 - Labs CBC & Chem 7: 08/18/22 06:05 08/19/22 07:04 Labs: Abnormal Lab Results - Last 24 Hours (Table) 08/19/22 08/19/22 Range/Units 07:04 07:04 Sodium 125 L (137-145) mmol/L Chloride 97 L (98-107) mmol/L Carbon Dioxide 21 L (22-30) mmol/L Osmolality 262 L (280-301) mosm/kg Calcium 8.1 L (8.4-10.2) mg/dL Assessment and Plan Plan: Assessment: 1. Hypotonic hyponatremia from poor solute intake and component of SIADH from nausea, pain, Depakote/Cymbalta. Sodium level dropped with normal saline. Sodium level 125 today. Urine osmolality 287. 2. Chronic kidney disease stage IIIa with baseline creatinine 1-1.3 secondary to nephrosclerosis and chronic interstitial nephritis from nonsteroidal use. 3. Acute and chronic vertigo. Neurology following. Brain CT showed no acute changes. No carotid stenosis noted. No stroke noted on MRI. 4. Hypertension with chronic kidney disease. 5. Hypokalemia from poor intake. Plan: Hep-Lock IV fluids. Follow-up TSH. 1200 mL fluid restriction. Samsca 15 mg once today. Encouraged oral intake. Cymbalta discontinued. Replace potassium. Follow-up urine sodium. Check PTH related peptide. Avoid salt tabs due to hypertension.
[2022-08-19 11:32] LABS: Magnesium 1.6 mg/dL (1.5-2.4)
--- NOTE | 2022-08-19 11:54 | P.PN ---
Subjective Progress Note Date: 08/19/22 The patient is seen at beside and continues to feels dizzy. Denies any other new neurological issues. Denies any ringing of ears or hearing loss. Objective - Vital Signs Vital signs: Vital Signs Temp 99.3 F 08/19/22 07:20 Pulse 80 08/19/22 07:20 Resp 18 08/19/22 07:20 BP 154/80 08/19/22 07:20 Pulse Ox 96 08/19/22 07:20 FiO2 Intake & Output 08/18/22 08/19/22 08/19/22 18:59 06:59 18:59 Intake Total 240 118 Output Total 400 400 Balance -160 -400 118 Intake: Oral 240 118 Output: Urine 400 400 Other: # Voids 1 1 - Exam GENERAL: The patient is lying in bed and is not in acute distress. She is feeling very dizzy. NEUROLOGICAL: Higher mental function: The patient is awake, alert, oriented to self, place and time. Patient is following commands. No aphasia and no neglect. Cranial nerves: The pupils are round, equal and reactive to light . Visual simon are full to confrontation throughout. Extraocular movement is intact no nystagmus is noted. Facial sensation is normal to touch throughout. The facial strength is normal throughout. Hearing is mildly decreased bilaterally to hand rub. Tongue is midline and moved [id number] without any difficulty. No dysarthria is noted. Shoulder shrug is normal bilaterally. Motor: Strength not assessed because feeling very dizziness. SOME OF THE WORK-UP DURING THIS HOSPITAL VISIT CONSISTED OF: * MRI Brain w/ and w/o: Reported as there is some diffuse mild increased signal in the per ventricle white matter without much change compared to old exam and could relate age-related white matter disease. No evidence of cortical infarct. No acute intracranial abnormality. I personally reviewed the MRI and there is no acute or subacute ischemia and there is no mass that enhances. * Carotid duplex is reported as no evidence for hemodynamically significant stenosis. * B12 440, folic acid 14.40. - Labs CBC & Chem 7: 08/18/22 06:05 08/19/22 07:04 Labs: Abnormal Lab Results - Last 24 Hours (Table) 08/19/22 08/19/22 Range/Units 07:04 07:04 Sodium 125 L (137-145) mmol/L Chloride 97 L (98-107) mmol/L Carbon Dioxide 21 L (22-30) mmol/L Osmolality 262 L (280-301) mosm/kg Calcium 8.1 L (8.4-10.2) mg/dL Assessment and Plan Assessment: * Acute on chronic vertigo. Is peripheral and not central. No stroke or mass on MRI Brain. * Benign positional peripheral vertigo. Patient has history of BPPV 20 years ago, that resolved after possible some rehabilitation. The symptoms have reappeared sometime after she suffered from a fall on 11/23/2021, when she fell face forward due to tripping on the curb. Patient has positional vertigo, which is worse on rolling over [id number], but also with up-and-down head movement. * Migraine headaches * Anxiety disorder * Hyponatremia * Hypertension * Hyperlipidemia * Osteoarthritis Plan: * Continue Antivert as needed. * Patient will benefit from vestibular rehabilitation as outpatient and recommend patient to follow-up with ENT as outpatient if continues to have vertigo. * Treatment of hyponatremia as per internal medicine. Nephrology is on board. * Continue to follow-up with Dr. Kahn (neurologist) as outpatient within 3 weeks. Once the patient is feeling better, then clear for discharge from neurological perspective. The plan is discussed with the patient, her daughter who is at bedside. Anthony Mcdonald M.D. Neuro-Hospitalist Time with Patient: Less than 30
[2022-08-19 17:02] LABS: African American GFR (CKD) 62 (>60 ml/min/1.73 sqM); Anion Gap 9 mmol/L; Blood Urea Nitrogen 13 mg/dL (7-17); Calcium 8.8 mg/dL (8.4-10.2); Carbon Dioxide 22 mmol/L (22-30); Chloride 101 mmol/L (98-107); Glucose 94 mg/dL (74-99); Non-African American GFR(CKD) 54 (>60 ml/min/1.73 sqM); Potassium 4.1 mmol/L (3.5-5.1); Sodium 132 mmol/L (137-145)
--- NOTE | 2022-08-19 18:33 | P.PN ---
Subjective Progress Note Date: 08/19/22 (delayed charting seen at 0830) The patient is a 72-year-old female with chronic migraines, chronic vertigo (unknown etiology), and osteoarthritis who presented to the emergency room with complaints of dizziness, nausea, vomiting. CT brain in the emergency room was unremarkable. Laboratory evaluation was remarkable for sodium 126, chloride 88, and an unremarkable UA. She was started on IV fluids and arrangements were made for admission. Patient underwent carotid ultrasound which showed no significant hemodynamic stenosis. She was followed by neurology and nephrology. MRI was negative for stroke. She was diagnosed with SIADH. She did receive Samsca 1 on 08/19. Patient seen and examined at bedside. and daughter are present. Patient reports that her dizziness and double vision is somewhat better than yesterday. She is updated on all results of testing. We discussed the diagnosis of SIADH, how this is treated, and things to look for. Family notes that this is her second issue with low sodiums in both time she has had some altered mentation and has just seemed off. General: nontoxic, no distress, appears at stated age Derm: warm, dry Head: atraumatic, normocephalic, symmetric Eyes: EOMI, no lid lag, anicteric sclera Mouth: no lip lesion, mucus membranes moist Cardiovascular: S1S2 reg, no murmur, positive posterior tibial pulse bilateral, Lungs: CTA bilateral, no rhonchi, no rales , no accessory muscle use Abdominal: soft, nontender to palpation, no guarding, no appreciable organomegaly Ext: no gross muscle atrophy, no edema, no contractures Neuro: CN II-XI grossly intact, no focal neuro deficits Psych: Alert, oriented, appropriate affect Assessment/plan: Severe hyponatremia due to SIADH CKD III -Nephrology recommendations appreciated, Samsca X 1 08/19 -Concerns for possible SIADH in conjunction with Depakote and Cymbalta, cymbalta discontinued on 08/18 -Urine osmolality 287 - TSH normal BPPV -Continue Antivert -Carotids negative -MRI without ischemia - neuro recs appreciated: outpatient vestibular rehab -B12 and folic acid within normal Hypertension -Continue with hydralazine, nadolol -Follow blood pressures Dyslipidemia -Statin DVT prophylaxis: Early ambulation Discussed with:, Nursing Anticipated discharge: In a.m. Anticipated discharge place: home A total of 35 minutes was spent on the care of this complex patient more than 50% of the time was spent in counseling and care coordination. Active Medications Generic Name Dose Route Start Last Admin Trade Name Mohit PRN Reason Stop Dose Admin Acetaminophen 650 mg 08/17/22 02:12 Acetaminophen Tab 325 Mg Tab PO Q6HR PRN Mild Pain or Fever > 100.5 Acetaminophen/Butalbital/Caffeine 1 each 08/17/22 15:34 08/17/22 17:56 Butalb/Apap/Caff 50-325-40mg Tab PO 1 each Q4HR PRN Administration Headache Alprazolam 0.25 mg 08/17/22 14:00 Alprazolam 0.25 Mg Tab PO DAILY PRN Anxiety Aspirin 81 mg 08/18/22 09:00 08/19/22 09:19 Aspirin 81 Mg PO 81 mg DAILY MIGUEL Administration Divalproex Sodium 250 mg 08/17/22 14:30 08/19/22 09:19 Divalproex Er 250 Mg Tab.Er.24h PO 250 mg DAILY MIGUEL Administration Heparin Sodium (Porcine) 5,000 unit 08/17/22 08:00 08/19/22 16:42 Heparin Sodium,Porcine/Pf 5,000 Unit/0.5 Ml Syringe SQ 5,000 unit Q8HR MIGUEL Administration Hydralazine HCl 100 mg 08/17/22 16:00 08/19/22 16:42 Hydralazine Hcl 50 Mg Tab PO 100 mg TID MIGUEL Administration Meclizine HCl 25 mg 08/17/22 02:11 Meclizine 25 Mg Tab PO TID PRN Vertigo Morphine Sulfate 4 mg 08/17/22 02:12 08/17/22 20:16 Morphine Sulfate 4 Mg/Ml Syringe IV 4 mg Q4HR PRN Administration Severe Pain (Scale 7 to 10) Nadolol 20 mg 08/18/22 09:00 08/19/22 09:19 Nadolol 20 Mg Tab PO 20 mg DAILY MIGUEL Administration Naloxone HCl 0.2 mg 08/17/22 02:12 Naloxone 0.4 Mg/Ml 1 Ml Vial IV Q2M PRN Opioid Reversal Ondansetron HCl 4 mg 08/17/22 02:12 Ondansetron 4 Mg/2 Ml Vial IVP Q8HR PRN Nausea And Vomiting Polysaccharide Iron Complex 150 mg 08/19/22 09:00 08/19/22 09:19 Iron Polysaccharides Complex 150 Mg Cap PO 150 mg [id number] MIGUEL Administration Pravastatin Sodium 20 mg 08/17/22 21:00 08/18/22 20:23 Pravastatin Sodium 20 Mg Tab PO 20 mg HS MIGUEL Administration Psyllium Hydrophilic Mucilloid 6 gm 08/17/22 21:00 08/19/22 09:19 Psyllium Husk 100% 6 Gm Packet PO 6 gm BID MIGUEL Administration Objective - Vital Signs Vital signs: Vital Signs Temp 98.4 F 08/19/22 15:00 Pulse 70 08/19/22 15:00 Resp 18 08/19/22 15:00 BP 134/74 08/19/22 15:00 Pulse Ox 99 08/19/22 15:00 FiO2 Intake & Output 08/18/22 08/19/22 08/19/22 18:59 06:59 18:59 Intake Total 240 358 Output Total 400 400 Balance -160 -400 358 Intake: Oral 240 358 Output: Urine 400 400 Other: # Voids 1 1 1 - Labs CBC & Chem 7: 08/18/22 06:05 08/19/22 16:21 Labs: Abnormal Lab Results - Last 24 Hours (Table) 08/19/22 08/19/22 08/19/22 Range/Units 07:04 07:04 16:21 Sodium 125 L 132 L (137-145) mmol/L Chloride 97 L (98-107) mmol/L Carbon Dioxide 21 L (22-30) mmol/L Creatinine 1.06 H (0.52-1.04) mg/dL Osmolality 262 L (280-301) mosm/kg Calcium 8.1 L (8.4-10.2) mg/dL
[2022-08-19] MEDS: MECLIZINE 25 MG TAB PO PRN (21:29)
[2022-08-19] MEDS: BUTALB/APAP/CAFF 50-325-40MG TAB PO PRN (21:29)
[2022-08-19] MEDS: PRAVASTATIN SODIUM 20 MG TAB PO SCH (21:30)
[2022-08-20 06:40] LABS: African American GFR (CKD) 64 (>60 ml/min/1.73 sqM); Anion Gap 8 mmol/L; Blood Urea Nitrogen 11 mg/dL (7-17); Calcium 8.8 mg/dL (8.4-10.2); Carbon Dioxide 23 mmol/L (22-30); Chloride 100 mmol/L (98-107); Glucose 91 mg/dL (74-99); Non-African American GFR(CKD) 55 (>60 ml/min/1.73 sqM); Potassium 3.8 mmol/L (3.5-5.1); Sodium 131 mmol/L (137-145)
[2022-08-20 08:37] VITALS: BP 146/87; PULSE 73; RESP 16; TEMP 99.1
[2022-08-20 09:14] LABS: Basophils # (A) 0.01 X 10*3/uL (0.00-0.10); Basophils % (A) 0.3 %; Eosinophils # (A) 0.01 X 10*3/uL (0.04-0.35); Eosinophils % (A) 0.3 %; HCT 29.6 % (37.2-46.3); HGB 9.9 g/dL (12.0-15.0); Immature Grans, Automated 0.3 %; Lymphocytes # (A) 0.57 X 10*3/uL (0.90-5.00); Lymphocytes % (A) 16.8 %; MCH 32.1 pg (27.0-32.0); MCHC 33.4 g/dL (32.0-37.0); MCV 96.1 fL (80.0-97.0); Mean Platelet Volume 8.8 fL (9.5-12.2); Monocytes % (A) 5.9 %; NRBC Per 100 WBC 0 /100 WBCS (0.0-0.0); Neutrophils # (A) 2.59 X 10*3/uL (1.80-7.70); Neutrophils % (A) 76.4 %; Platelet Count 206 X 10*3/uL (140-440); RBC 3.08 X 10*6/uL (4.10-5.20); RDW 12.8 % (11.5-14.5); WBC 3.39 X 10*3/uL (4.50-10.00)
[2022-08-20] MEDS: DIVALPROEX ER 250 MG TAB.ER.24H PO SCH (09:37)
[2022-08-20] MEDS: hydrALAZINE HCL 50 MG TAB PO SCH (09:38)
[2022-08-20] MEDS: BUTALB/APAP/CAFF 50-325-40MG TAB PO PRN (09:38)
[2022-08-20] MEDS: ASPIRIN 81 MG PO SCH (09:38)
[2022-08-20] MEDS: PSYLLIUM HUSK 100% 6 GM PACKET PO SCH (09:38)
[2022-08-20] MEDS: MECLIZINE 25 MG TAB PO PRN (09:38)
[2022-08-20] MEDS: HEPARIN SODIUM,PORCINE/PF 5,000 UNIT/0.5 ML SYRINGE SQ SCH (09:38)
--- NOTE | 2022-08-20 11:08 | P.PN ---
Subjective Patient is seen in follow-up for hyponatremia. Sodium level 131 this morning. Oral intake fair. No vomiting or diarrhea. No chest pain or shortness of breath. Has been voiding. GFR at baseline. Overall feels better today. Vital sig No acute distress.ns are stable. General: No acute distress. HEENT: Head exam is unremarkable. LUNGS: Breath sounds decreased. HEART: Rate and Rhythm are regular. ABDOMEN: Soft, no distention. EXTREMITITES: No edema. Objective - Vital Signs Vital signs: Vital Signs Temp 99.1 F 08/20/22 08:00 Pulse 73 08/20/22 08:00 Resp 16 08/20/22 08:00 BP 146/87 08/20/22 08:00 Pulse Ox 97 08/20/22 08:00 FiO2 Intake & Output 08/19/22 08/20/22 08/20/22 18:59 06:59 18:59 Intake Total 598 Balance 598 Intake: Oral 598 Other: # Voids 1 4 - Labs CBC & Chem 7: 08/20/22 06:14 08/20/22 06:14 Labs: Abnormal Lab Results - Last 24 Hours (Table) 08/19/22 08/20/22 08/20/22 Range/Units 16:21 06:14 06:14 WBC 3.39 L (4.50-10.00) X 10*3/uL RBC 3.08 L (4.10-5.20) X 10*6/uL Hgb 9.9 L (12.0-15.0) g/dL Hct 29.6 L (37.2-46.3) % MCH 32.1 H (27.0-32.0) pg MPV 8.8 L (9.5-12.2) fL Lymphocytes # 0.57 L (0.90-5.00) X 10*3/uL Eosinophils # 0.01 L (0.04-0.35) X 10*3/uL Sodium 132 L 131 L (137-145) mmol/L Creatinine 1.06 H (0.52-1.04) mg/dL Assessment and Plan Plan: Assessment: 1. Hypotonic hyponatremia from poor solute intake and component of SIADH from nausea, pain, Depakote/Cymbalta. Sodium level dropped with normal saline. Sodium level 131 today. status post [facility] 08/19/2022. Urine osmolality 287 - repeat 161. TSH normal. 2. Chronic kidney disease stage IIIa with baseline creatinine 1-1.3 secondary to nephrosclerosis and chronic interstitial nephritis from nonsteroidal use. 3. Acute and chronic vertigo. Neurology following. Brain CT showed no acute changes. No carotid stenosis noted. No stroke noted on MRI. 4. Hypertension with chronic kidney disease. Stable. 5. Hypokalemia from poor intake. Stable. Plan: 1200 mL fluid restriction. Encouraged oral intake, especially protein. Cymbalta discontinued. Follow-up urine sodium. Follow-up PTH related peptide. Avoid salt tabs due to hypertension. Add oral Lasix 20 mg once daily and potassium supplementation 10 mEq every other day. Repeat BMP and magnesium level 2-3 days postdischarge. Follow up outpatient in 1 week.
--- NOTE | 2022-08-20 17:40 | P.DS ---
Providers Date of admission: 08/19/22 08:29 Expected date of discharge: 08/20/22 Attending physician: Kanwal Higgins MD Consults: 08/17/22 02:12 Consult Physician Routine Consulting Provider: Dayna Young Consult Reason/Comments: toure,vertigo Do you want consulting provider notified?: Yes 08/17/22 14:02 Consult Physician Routine Consulting Provider: Nora Reeves Consult Reason/Comments: Acute on chronic syptomatic hyponatremia concern for SIADH Do you want consulting provider notified?: Yes Primary care physician: 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 CT brain in the emergency room was unremarkable. Laboratory evaluation was remarkable for sodium 126, chloride 88, and an unremarkable UA. She was started on IV fluids and arrangements were made for admission. Patient underwent carotid ultrasound which showed no significant hemodynamic stenosis. She was followed by neurology and nephrology. MRI was negative for stroke. She was diagnosed with SIADH. She did receive Samsca 1 on 08/19. Her sodium continued to do well. Her dizziness improved. She is determined stable for discharge home. Follow-up: Migdalia at [facility] next week, Dr. Benjamin's office in 1-2 weeks, basic metabolic profile and magnesium level on Thursday order given, informed she should be up-to-date on all cancer screenings. She'll have home care for vestibular rehabilitation. Parathyroid related peptide pending Patient seen and examined at bedside. Feeling better. Daughter at bedside. All questions answered. Vital signs reviewed and stable. General: nontoxic, no distress, appears at stated age Derm: warm, dry Head: atraumatic, normocephalic, symmetric Eyes: EOMI, no lid lag, anicteric sclera Mouth: no lip lesion, mucus membranes moist Cardiovascular: S1S2 reg, no murmur, positive posterior tibial pulse bilateral, Lungs: CTA bilateral, no rhonchi, no rales , no accessory muscle use Abdominal: soft, nontender to palpation, no guarding, no appreciable organomegaly Ext: no gross muscle atrophy, no edema, no contractures Neuro: CN II-XI grossly intact, no focal neuro deficits Psych: Alert, oriented, appropriate affect A total of 45 minutes of time were spent preparing this complex discharge summary. Patient was discharged on 08/20/22. Patient Condition at Discharge: Good Plan - Discharge Summary Discharge Rx Participant: Yes New Discharge Prescriptions: New Meclizine [Antivert] 25 mg PO TID PRN #30 tab PRN Reason: Vertigo Butalb/APAP/Caff 50-325-40Mg [Fioricet 50-325-40] 1 each PO Q6H PRN #12 tab PRN Reason: Headache Potassium Chloride [Potassium Chloride ER] 10 meq PO DIRECTED #30 cap Furosemide [Lasix] 40 mg PO DAILY #30 tablet Continue nadoloL [Corgard] 20 mg PO DAILY Pravastatin Sodium [Pravachol] 20 mg PO HS Aspirin [Adult Low Dose Aspirin EC] 81 mg PO DAILY Ondansetron [Zofran ODT] 8 mg PO Q8H PRN PRN Reason: Nausea Divalproex ER [Depakote ER] 250 mg PO DAILY Prevagen 1 tab PO DAILY Psyllium Husk [Metamucil] 0.4 gm PO BID hydrALAZINE HCL [Apresoline] 100 mg PO TID Iron Complex 8mg 1 tab PO TUFR ALPRAZolam [Xanax] 0.25 mg PO DAILY PRN PRN Reason: Anxiety Discontinued DULoxetine HCL [Cymbalta] 60 mg PO DAILY Discharge Medication List Aspirin [Adult Low Dose Aspirin EC] 81 mg PO DAILY 10/10/16 [History] Pravastatin Sodium [Pravachol] 20 mg PO HS 10/10/16 [History] nadoloL [Corgard] 20 mg PO DAILY 10/10/16 [History] Ondansetron [Zofran ODT] 8 mg PO Q8H PRN 11/04/16 [History] ALPRAZolam [Xanax] 0.25 mg PO DAILY PRN 08/17/22 [History] Divalproex ER [Depakote ER] 250 mg PO DAILY 08/17/22 [History] Iron Complex 8mg 1 tab PO TUFR 08/17/22 [History] Prevagen 1 tab PO DAILY 08/17/22 [History] Psyllium Husk [Metamucil] 0.4 gm PO BID 08/17/22 [History] hydrALAZINE HCL [Apresoline] 100 mg PO TID 08/17/22 [History] Butalb/APAP/Caff 50-325-40Mg [Fioricet 50-325-40] 1 each PO Q6H PRN #12 tab 08/20/22 [Rx] Furosemide [Lasix] 40 mg PO DAILY #30 tablet 08/20/22 [Rx] Meclizine [Antivert] 25 mg PO TID PRN #30 tab 08/20/22 [Rx] Potassium Chloride [Potassium Chloride ER] 10 meq PO DIRECTED #30 cap 08/20/22 [Rx] Follow up Appointment(s)/Referral(s): [facility] - 1 Week (AGENCY WILL CONTACT YOU.) Husam Evans MD [Primary Care Provider] - 1-2 days (Follow with Migdalia. Please call and schedule an appointment.) Bryant Benjamin DO [STAFF PHYSICIAN] - 09/01/22 11:20 am () Ambulatory/Diagnostic Orders: Basic Metabolic Panel [LAB.AMB] Location: None Selected Magnesium [LAB.AMB] Location: None Selected Patient Instructions/Handouts: Furosemide (By mouth), Potassium Chloride (By mouth), Meclizine (By mouth), Butalbital/Acetaminophen/Caffeine (By mouth), Hyponatremia (DC), Vertigo (DC), Fluid Restriction (DC), Fall Prevention (DC) Activity/Diet/Wound Care/Special Instructions: Activity: As tolerated Diet: regular, 40Ounce fluid restriction Special Instructions: Blood work on Thursday Update on cancer screening- Pap if needed, Mammogram, and Colon cancer screening Discharge Disposition: HOME WITH HOME HEALTH SERVICES
== END 2022-08-20 13:48 | disposition home health service (06) | DRG 644 ==
LOC: EC 19:13 → INTOOBSV 08-17 02:15 → 6NMEDSUR 08-17 02:15 → OBSVTOIN 08-19 08:29
PROVIDERS: ADMIT Internal Medicine; ATTEND Internal Medicine
DX: E22.2 Syndrome of inappropriate secretion of antidiuretic hormone (principal); N11.9 Chronic tubulo-interstitial nephritis, unspecified; E78.5 Hyperlipidemia, unspecified; E87.6 Hypokalemia; F32.A Depression, unspecified; F41.9 Anxiety disorder, unspecified; F68.8 Other specified disorders of adult personality and behavior; G43.909 Migraine, unspecified, not intractable, without status migrainosus; H53.2 Diplopia; H81.10 Benign paroxysmal vertigo, unspecified ear; I12.9 Hypertensive chronic kidney disease with stage 1 through stage 4 chronic kidney disease, or unspecified chronic kidney disease; R11.2 Nausea with vomiting, unspecified; R26.9 Unspecified abnormalities of gait and mobility; F40.240 Claustrophobia; T38.0X5A Adverse effect of glucocorticoids and synthetic analogues, initial encounter; M19.90 Unspecified osteoarthritis, unspecified site; N18.31 Chronic kidney disease, stage 3a; Z91.81 History of falling; Z79.899 Other long term (current) drug therapy; Z79.82 Long term (current) use of aspirin; Z88.5 Allergy status to narcotic agent; Z91.011 Allergy to milk products
CPT/HCPCS: 36415; 70450; 70553; 80048; 80053; 81001; 82607; 82746; 83735; 83930; 83935; 84100; 84295; 84300; 84443; 84484; 85025; 85610; 85730; 93005; 93880; 96361; 96374; 96375; 96376; 99285

== ENCOUNTER → 2022-08-23 | Outpatient (CLI) | payer MEDICARE ==
[2022-08-23 16:41] LABS: BUN/Creat Ratio 20.57 Ratio (12.00-20.00); Blood Urea Nitrogen 32.5 mg/dL (9.0-27.0); Calcium 9.7 mg/dL (8.7-10.3); Carbon Dioxide 26.9 mmol/L (20.0-27.5); Magnesium 1.9 mg/dL (1.5-2.4); Non-African American GFR(CKD) 32.8 (60.0-200.0); Potassium 4.2 mmol/L (3.5-5.5)
== END | disposition home or self-care (01) ==
LOC: LABWHC1 10:09
PROVIDERS: ATTEND Internal Medicine
DX: E22.2 Syndrome of inappropriate secretion of antidiuretic hormone (principal); N18.9 Chronic kidney disease, unspecified; Z79.01 Long term (current) use of anticoagulants
CPT/HCPCS: 36415; 80048; 83735

== ENCOUNTER → 2022-09-15 | Outpatient (CLI) | payer MEDICARE ==
[2022-09-15 14:32] VITALS: BP 103/70; PULSE 87; RESP 18
--- NOTE | 2022-09-15 15:12 | P.PAINPG ---
PQRS Measure Charge Sheet Comment: HISTORY OF PRESENT ILLNESS: 72 yr old female as a referral from Dr Kahn presents today w severe and chronic neck pain secondary to occipital neuralgia for evaluation. Pt states her pain level goes as high as 10/10 in intensity, constant, localzed in the base of the head w accompanying headaches. Pounding in character. PT twice a week x 1 yr which ended in May 2022, massage therapy weekly x 8 wks, heat, ice, meds (Flexeril, Salon Pas), laying supine and rest. PMH: Hyperlipidemia, HTN, OA, MDD PSH: Hiatal Hernia, Hysterectomy, BL Blepharoplasty, EGD/ Colonoscopy, L Total Knee Arthroplasty (2017) SH: Never smoker, Occasional ETOH, No illicit drug use FH: Mo- ME/ CABG All: NKDA Meds: See list REVIEW OF ORGAN SYSTEMS: CONSTITUTIONAL: No fevers or chills. No recent weight loss. NEUROLOGICAL: + numbness and tingling along the distal extremities. No seizure disorders or headaches. MUSCULOSKELETAL: + pain PSYCHIATRIC: Denies current depression or suicidal thoughts. Physical Examinations : Constitutional : Cooperative , not in acute distress . Neurologic : Cranial nerve II to XII intact. No focal neurological deficits. Psychiatric : alert & oriented x 3. Matching mood & appropriate affect. Judgment & insight intact. Musculoskeletal : Cervical Spine +BL ANGELITO TTP Motor strength in the deltoid and biceps: Normal right side. Normal Left side Motor strength biceps and the wrist extensors: Normal right side . Normal left side Motor strength in the triceps muscle: Normal right side. Normal left side Deep tendon reflexes: Normal at the biceps. Normal at Brachioradialis. Normal at triceps Vertebral body tenderness to deep palpation over Cervical facet loading test: positive bilaterally Spurling test: positive bilaterally Neck distraction test: positive bilaterally Estella sign: positive bilaterally Lumbar spine Motor strength lower extremities ,thigh and legs 5/5 Right side , 5/5 Left side Deep tendon reflexes : Normal Knee Jerk. Normal Ankle Jerk Vertebral body tenderness over Lumbar facet Loading Test: positive Right / positive Left Range of motion of the lumbar spine Flexion 30 degrees, extension 10 degrees Straight Leg Raise test: Left/ Right positive at degree Chito test: positive right / positive left. Severe tenderness over the Sacroiliac joint on the Right / Left sides Gaenslen test: positive bilaterally Seated flexion test: positive bilaterally. Sacral spine : Severe tenderness over the Sacroiliac joint: right side / left side Range of motion: Flexion of the lumbar spine <60 degrees Range of motion: Extension of the lumbar spine <20 degrees Gaenslen's Test positive Dimas's Test positive Chito test: positive right side / left side Thigh Thrust Test Sacral Thrust Test Imaging: MRI of the brain from 08/18/22 reviewed Assessment/ Plan : BL occipital neuralgia, cervicogenic ATKINSON Recommendation of BL ANGELITO injection. May need a series, up to every 3 mo, for optimal pain relief. Risks, benefits of procedure discussed and patient verbalized understanding. Admits to aspirin or anti- coagulant use or medical history of diabetes. Protocol for discontinuation/ continuation of medications steven procedure discussed. All questions answered. I have spent greater than 30 minutes on patient care today. Dr Dean was available by phone for the evaluation of this patient. The time was used to review the medical records including relevant urine studies and Prescription history (MAPs), review of the available imaging, evaluation and examination of the patient, coordination of care with the medical staff and if applicable referring physicians, as well as creation of the medical record - Pain Location Bilateral Lower Neck Non-Pharmacological Interventions: Darkened Room, Heat, Ice, Inactivity, Massage, Physical Therapy Pharmacological Interventions: PRN Medication, Scheduled Medication, Topical Medication PQRS Narrative: Smoking Status Never smoker Home Medications: Ambulatory Orders Aspirin [Adult Low Dose Aspirin EC] 81 mg PO DAILY 10/10/16 Pravastatin Sodium [Pravachol] 20 mg PO HS 10/10/16 nadoloL [Corgard] 20 mg PO DAILY 10/10/16 Ondansetron [Zofran ODT] 8 mg PO Q8H PRN 11/04/16 ALPRAZolam [Xanax] 0.25 mg PO DAILY PRN 08/17/22 Divalproex ER [Depakote ER] 250 mg PO DAILY 08/17/22 Iron Complex 8mg 1 tab PO TUFR 08/17/22 Prevagen 1 tab PO DAILY 08/17/22 hydrALAZINE HCL [Apresoline] 100 mg PO TID 08/17/22 Furosemide [Lasix] 40 mg PO DAILY #30 tablet 08/20/22 Meclizine [Antivert] 25 mg PO TID PRN #30 tab 10/12/22 Potassium Chloride [Potassium Chloride ER] 10 meq PO DIRECTED #30 cap 08/20/22 Controlled Substance Measures - Controlled Substance Measures Is patient prescribed a controlled substance at discharge?: No
[2022-09-15 23:59] LABS: Anion Gap 15.4 mmol/L (10.00-18.00); BUN/Creat Ratio 22.79 Ratio (12.00-20.00); Blood Urea Nitrogen 31.9 mg/dL (9.0-27.0); Calcium 9.3 mg/dL (8.7-10.3); Carbon Dioxide 23.6 mmol/L (20.0-27.5); Potassium 3.8 mmol/L (3.5-5.5)
== END ==
LOC: PNWHC3 13:54
PROVIDERS: ATTEND Specialist
DX: M54.81 Occipital neuralgia (principal); G44.86 Cervicogenic headache
CPT/HCPCS: 80048; G0463; 99211

== ENCOUNTER → 2022-09-15 | Outpatient (CLI) | payer MEDICARE | END | disposition home or self-care (01) | LOC: LABWHC1 14:55 | PROVIDERS: ATTEND Internal Medicine | DX: Z53.9 Procedure and treatment not carried out, unspecified reason (principal) ==

== ENCOUNTER → 2022-09-26 | Outpatient (CLI) | payer MEDICARE ==
--- NOTE | 2022-09-26 08:40 | MM ---
Reason for Exam: Screening (asymptomatic). Last screening mammogram was performed 12 month(s) ago. Patient History: Menarche at age 15. First Full-Term at age 28. Hysterectomy at age 43. Postmenopausal. Patient has history of breast feeding. Risk Values: Samia 5 year model risk: 1.9%. NCI Lifetime model risk: 5.6%. Prior Study Comparison: 07/17/2016 Bilateral Screening Mammogram, [facility]. 02/23/2018 Bilateral Screening Mammogram, [facility]. 02/24/2019 Bilateral Screening Mammogram, [facility]. 09/25/2021 Bilateral Screening Mammogram, [facility]. Tissue Density: The breast tissue is heterogeneously dense. This may lower the sensitivity of mammography. Findings: Analyzed By CAD. There is no suspicious group of microcalcifications or new suspicious mass in either breast. Overall Assessment: Benign, BI-RAD 2 Management: Screening Mammogram of both breasts in 1 year. A clinical breast exam by your physician is recommended on an annual basis and results should be correlated with mammographic findings. Electronically signed and approved by: Antelmo Ruiz M.D. Radiologis
== END | disposition home or self-care (01) ==
LOC: RADMAMWWP 06:47
PROVIDERS: ATTEND Family Medicine
DX: Z12.31 Encounter for screening mammogram for malignant neoplasm of breast (principal); Z78.0 Asymptomatic menopausal state
CPT/HCPCS: 77063; 77067

== ENCOUNTER 2022-10-16 07:26 | Day surgery (SDC) | payer MEDICARE ==
[~2022-10-16 07:26] MED LIST changes: -ACETAMINOPHEN TAB 500 MG TAB PO ONE; -DEXAMETHASONE SOD PHOSPHATE 10 MG/ML 1 ML VIAL IV ONE; -HYDROmorphone 1 MG/ML 1 ML SYRINGE IVP PRN; +LIDOCAINE 1% (10MG/ML) FOR IV START INTRADERMA PRN; -MELOXICAM 7.5 MG TAB PO ONE; -ONDANSETRON 4 MG/2 ML VIAL IVP ONE; -TRANEXAMIC ACID 1,000 MG in SODIUM CHLORIDE 0.9% 100 ML IVPB ONE
[2022-10-16 07:57] VITALS: TEMP 97.1
[2022-10-16] MEDS ORDERED: ROPIVACAINE 5 MG/ML 20 ML AMPULE ONE (08:14)
[2022-10-16] MEDS ORDERED: methylPREDNISolone ACETATE 80 MG/ML 1 ML VIAL ONE (08:14)
[2022-10-16] MEDS ORDERED: MIDAZOLAM 2 MG/2 ML VIAL ONE (08:14)
[2022-10-16] MEDS ORDERED: fentaNYL (PF) 50 MCG/ML 2 ML AMP ONE (08:14)
[2022-10-16] MEDS ORDERED: IV FLUID CONTINUATION 1,000 ML IV ONE (08:24)
--- NOTE | 2022-10-16 08:24 | P.PCN ---
Date of Procedure: 10/16/22 Procedure(s) Performed: Preoperative diagnoses= 1- Greater occipital neuralgia. 2-cervicogenic headache Postoperative diagnoses= same as preoperative diagnosis. Procedure= Bilateral Greater occipital nerve block Anesthesia= moderate sedation with Versed 1 mg and fentanyl 50 micrograms Sedation start time : 0 8:15 . Sedation end time : 0 820 . Estimated blood loss=minimal. Procedure indication= the patient had a history of severe chronic neck pain ,a nd headache, diagnosed with occipital neuralgia exam was positive for severe tenderness over the occipital nerve bilaterally, she will be a good candidate occipital nerve block, patient failed conservative management Procedure description= the patient was seen and identified in the preoperative holding area, risks and benefits and alternative of the procedure and possible complications discussed with the patient, and he agreed with the preceding, patient signed the consent, an IV was started, and vital signs were monitored and were stable throughout the procedure, patient was placed in the sitting position or table and the neck area was prepped and draped with a sterile fashion, vital signs were closely monitored during the procedure, 25-gauge needle advanced 1 inch lateral to the occipital protuberance on the right side, at the location of the right occipital nerve , then after negative aspiration for heme and CSF and there was no paresthesia during the injection, 6 ml of Robivacaine 0.5% and 30 mg of Depo-Medrol injected after negative aspiration, the needle removed, and the entire same procedure was repeated for the left Greater occipital nerve. Patient tolerated the procedure well without any complication, The patient returned to supine position after the back was cleaned and a Band- Aid applied, the patient transported to recovery room in stable condition and he was monitored for 30 minutes before he was discharged home and then patient was reexamined before going home and patient was discharged in stable condition and patient will follow up with the pain clinic in a few weeks.
[2022-10-16 08:28] VITALS: RESP 16
[2022-10-16 08:40] VITALS: BP 129/74; PULSE 61
== END 2022-10-16 09:08 | disposition home or self-care (01) ==
LOC: ORPAIN 07:26
PROVIDERS: ATTEND Specialist
DX: M54.81 Occipital neuralgia (principal); G44.86 Cervicogenic headache; G89.29 Other chronic pain
CPT/HCPCS: 64405; J2250; J1040; J3010; J2795

== ENCOUNTER → 2022-10-20 | Outpatient (CLI) | payer MEDICARE ==
[2022-10-20 10:45] LABS: HGB 11.3 g/dL (12.0-15.0); MCHC 32.3 g/dL (32.0-37.0); MCV 105.4 fL (80.0-97.0); Mean Platelet Volume 9.8 fL (9.5-12.2); NRBC Per 100 WBC 0 /100 WBCS (0.0-0.0); Platelet Count 181 X 10*3/uL (140-440); RBC 3.32 X 10*6/uL (4.10-5.20); RDW 12.9 % (11.5-14.5); WBC 7.06 X 10*3/uL (4.50-10.00)
[2022-10-20 10:54] LABS: Albumin 3.9 g/dL (3.8-4.9); Albumin/Globulin Ratio 1.63 (1.60-3.17); Anion Gap 10.3 mmol/L (10.00-18.00); BUN/Creat Ratio 22.86 Ratio (12.00-20.00); Calcium 9.2 mg/dL (8.7-10.3); Carbon Dioxide 26.7 mmol/L (20.0-27.5); Globulin 2.4 g/dL (1.6-3.3); Potassium 5.1 mmol/L (3.5-5.5); Total Bilirubin 0.2 mg/dL (0.30-1.20); Total Protein 6.3 g/dL (6.2-8.2)
[2022-10-20 10:55] LABS: % Iron Saturation 19.14 (12.00-45.00); Phosphorus 4.2 mg/dL (2.4-5.1); Uric Acid 6.9 mg/dL (2.9-7.7)
[2022-10-20 11:03] LABS: Appearance,Urine Clear (Clear); Bilirubin,Urine Negative (Negative); Blood,Urine Negative (Negative); Color,Urine Yellow (Yellow); Ketones,Urine Negative (Negative); Nitrite,Urine Negative (Negative); PH, Urine 7.5 (5.0-8.0); Specific Gravity,Urine 1.015 (1.001-1.030); Urobilinogen,Urine 0.2 (0.2,1.0)
== END | disposition home or self-care (01) ==
LOC: LABWHC1 07:11
PROVIDERS: ATTEND Internal Medicine Nephrology
DX: N25.81 Secondary hyperparathyroidism of renal origin (principal); N18.32 Chronic kidney disease, stage 3b; D63.1 Anemia in chronic kidney disease; N39.0 Urinary tract infection, site not specified; E55.9 Vitamin D deficiency, unspecified; M10.9 Gout, unspecified
CPT/HCPCS: 36415; 80053; 81003; 82306; 82728; 83540; 83550; 83735; 83970; 84100; 84550; 85027

== ENCOUNTER → 2022-10-27 | Outpatient (CLI) | payer MEDICARE ==
[2022-10-27 10:49] LABS: African American GFR (CKD) 40.5 (60.0-200.0); Anion Gap 12.4 mmol/L (10.00-18.00); BUN/Creat Ratio 19.8 Ratio (12.00-20.00); Blood Urea Nitrogen 29.7 mg/dL (9.0-27.0); Calcium 9.2 mg/dL (8.7-10.3); Carbon Dioxide 24.6 mmol/L (20.0-27.5); Non-African American GFR(CKD) 34.9 (60.0-200.0)
--- NOTE | 2022-10-28 12:13 | CT ---
EXAMINATION TYPE: CT abdomen pelvis wo con DATE OF EXAM: 10/27/2022 COMPARISON: None INDICATION: abdominal pain DLP: 409.5 mGycm, Automated exposure control for dose reduction was used. CONTRAST: 0 mL of Isovue 300. Study performed with Oral Contrast TECHNIQUE: Axial images were obtained from above the diaphragm to the pubic rami in the axial plane a t 5 mm thick sections. Reconstructed images are reviewed on the computer in the coronal plane. FINDINGS: Limited CT sections are obtained the lung bases. The lung bases are clear. CT ABDOMEN: Liver: Normal Spleen: Normal Pancreas: Normal Adrenal glands: The adrenal glands are normal. Gallbladder: Normal Kidneys: No masses are evident. No hydronephrosis is present. There is a 1.7 cm cyst in the superio r medial left kidney. There is a 0.6 cm nonobstructing renal stone in the mid right kidney. There may be an adjacent 0.3 cm nonobstructing renal stone. Small cortical renal cysts at the inferior posteri or left kidney measuring 1.3 cm. Delayed images were obtained through the kidneys, which remain unre markable. Aorta: Vascular calcification is within the aorta. Inferior vena cava: Normal. CT PELVIS: Loops of bowel within the abdomen and pelvis are normal. Fecal debris is seen in the colon. There are loops of bowel which are incompletely distended or lack oral contrast limiting their evaluation. Appendix: Normal as visualized. Urinary bladder: Normal. Genitourinary structures: Uterus and ovaries are not identified. Osseous structures: No suspicious lytic or sclerotic lesions. Degenerative facet changes are within t he lower lumbar spine IMPRESSIONS: 1. No acute abnormality. 2. Renal cysts. 3. Non obstructing right renal stones.
== END | disposition home or self-care (01) ==
LOC: RADCTMAIN 11:48
PROVIDERS: ATTEND Family Medicine
DX: N20.0 Calculus of kidney (principal); N28.1 Cyst of kidney, acquired
CPT/HCPCS: 74176; 80048

== ENCOUNTER → 2022-10-29 | Outpatient (CLI) | payer MEDICARE ==
[2022-10-29 08:36] VITALS: BP 159/78; PULSE 68; RESP 18; TEMP 98.2
--- NOTE | 2022-10-29 14:19 | P.PAINPG ---
PQRS Measure Charge Sheet Comment: A 72 yr old female with a history of severe and chronic ATKINSON pain secondary to occipital neuralgia and cervicogenic ATKINSON presents today for evaluation s/p BL ANGELITO injection. Pt states she experienced 100 % pain relief x 2 wks s/p procedure. Pain level is currently at 0 /10 in intensity. No provocative or palliative factors currently. Interventional pain procedures completed include BL ANGELITO injection Patient is currently on Denies Patient denies any side effects of the medication(s), denies excessive drowsine ss or sleepiness, denies suicidal ideation and reports that the current pain medication is helping to control the pain and improve activities of daily living. Patient denies any motor or sensory deficits. Patient denies any fever or night sweats, denies any change in the bowel movements or urination. Physical Examination: -Constitutional: Cooperative. Not in acute distress . - Neurologic: Cranial nerve II to XII intact. No focal neurological deficits. - Psychatric: Alert & oriented x 3. Matching mood & appropriate affect. Judgment and insight intact. - Musculoskeletal: Cervical spine: Muscle bulk/ tone/ strength in the bilateral upper extremities normal Vertebral body tenderness to palpation over Spurling test positive Distraction test positive Facet loading test positive Thoracic spine Muscle bulk / tone/ strength in the bilateral paraspinal muscles normal Vertebral body tender to palpation over Facet loading test positive Lumbar spine: Motor bulk/ tone/ strength lower extremities , thigh and legs : 5/5 Deep tendon reflexes : Normal Knee Jerk. Normal Ankle Jerk . Vertebral body tenderness to palpation over Lumbar Facet Loading Test positive Straight Leg Raise: positive at 30 degrees right side/ left side Gaenslen's Test positive Sacral spine : Severe tenderness over the Sacroiliac joint: right side / left side Range of motion: Flexion of the lumbar spine <60 degrees Range of motion: Extension of the lumbar spine <20 degrees Gaenslen's Test positive Chito test: positive right side / left side Thigh Thrust Test Sacral Thrust Test Assessment and plan: Chronic ATKINSON pain secondary to occipital neuralgia and cervicogenic ATKINSON Pt experienced superior pain relief s/p procedure. She may return to this clinic on an as needed basis. All patient questions answered I have spent less than 30 minutes on patient care today. Dr Dean was available by phone for the evaluation of this patient. The time was used to review the medical records including relevant urine studies and Prescription history (MAPs), review of the available imaging, evaluation and examination of the patient, coordination of care with the medical staff and if applicable referring physicians, as well as creation of the medical record PQRS Narrative: Smoking Status Never smoker Hx Alcohol Use (MH) No Home Medications: Ambulatory Orders Aspirin [Adult Low Dose Aspirin EC] 81 mg PO DAILY 10/10/16 Pravastatin Sodium [Pravachol] 40 mg PO HS 10/10/16 nadoloL [Corgard] 20 mg PO DAILY 10/10/16 ALPRAZolam [Xanax] 0.25 mg PO DAILY PRN 08/17/22 Divalproex ER [Depakote ER] 250 mg PO DAILY 08/17/22 Prevagen 1 tab PO DAILY 08/17/22 hydrALAZINE HCL [Apresoline] 50 mg PO TID 08/17/22 Cyclobenzaprine [Flexeril] 10 mg PO HS 10/14/22 Furosemide [Lasix] 40 mg PO Q48H 10/14/22 Gabapentin [Neurontin] 100 mg PO DAILY 10/14/22 Potassium Chloride [Potassium Chloride ER] 10 meq PO Q48H 10/14/22 Sodium Chloride Tab 1 gm PO DAILY 10/14/22 busPIRone HCl [Buspar] 5 mg PO BID 10/14/22 Controlled Substance Measures - Controlled Substance Measures Is patient prescribed a controlled substance at discharge?: No
== END ==
LOC: PNWHC3 08:09
PROVIDERS: ATTEND Specialist
DX: M54.81 Occipital neuralgia (principal)
CPT/HCPCS: 99211

== ENCOUNTER → 2022-11-17 | Outpatient (CLI) | payer MEDICARE ==
--- NOTE | 2022-11-17 08:27 | XR ---
EXAMINATION TYPE: XR chest 2V DATE OF EXAM: 11/17/2022 7:56 AM COMPARISON: Chest radiographs from 02/06/2022 TECHNIQUE: XR chest 2V Frontal and lateral views of the chest. CLINICAL INDICATION:Female, 72 years old with history of E22.2 SIADH; FINDINGS: Lungs/Pleura: There is no evidence of pleural effusion, focal consolidation, or pneumothorax. Pulmonary vascularity: Unremarkable. Heart/mediastinum: Cardiomediastinal silhouette is unremarkable. Musculoskeletal: No acute osseous pathology. IMPRESSION: No acute cardiopulmonary disease/process. No evidence of pulmonary mass.
== END | disposition home or self-care (01) ==
LOC: RADXRMAIN 07:40
PROVIDERS: ATTEND Internal Medicine
DX: E22.2 Syndrome of inappropriate secretion of antidiuretic hormone (principal)
CPT/HCPCS: 71046

== ENCOUNTER → 2023-01-29 | Outpatient (CLI) | payer MEDICARE ==
[2023-01-29 10:44] LABS: HCT 35.7 % (37.2-46.3); HGB 11.6 g/dL (12.0-15.0); MCH 32.3 pg (27.0-32.0); MCHC 32.5 g/dL (32.0-37.0); MCV 99.4 fL (80.0-97.0); Mean Platelet Volume 9.9 fL (9.5-12.2); NRBC Per 100 WBC 0 /100 WBCS (0.0-0.0); Platelet Count 176 X 10*3/uL (140-440); RBC 3.59 X 10*6/uL (4.10-5.20); RDW 12.1 % (11.5-14.5); WBC 6.25 X 10*3/uL (4.50-10.00)
[2023-01-29 10:53] LABS: % Iron Saturation 18.74 (12.00-45.00)
[2023-01-29 10:54] LABS: African American GFR (CKD) 34.8 (60.0-200.0); Anion Gap 14.7 mmol/L (10.00-18.00); BUN/Creat Ratio 10.59 Ratio (12.00-20.00); Calcium 9.8 mg/dL (8.7-10.3); Carbon Dioxide 24.3 mmol/L (20.0-27.5); Potassium 4.6 mmol/L (3.5-5.5)
== END | disposition home or self-care (01) ==
LOC: LABWHC1 07:14
PROVIDERS: ATTEND Internal Medicine
DX: N18.9 Chronic kidney disease, unspecified (principal)
CPT/HCPCS: 36415; 80048; 82728; 83540; 83550; 85027

== ENCOUNTER → 2023-02-02 | Outpatient (CLI) | payer MEDICARE ==
--- NOTE | 2023-02-02 13:15 | US ---
EXAMINATION TYPE: US kidneys/renal and bladder DATE OF EXAM: 02/02/2023 COMPARISON: NONE CLINICAL HISTORY: CKD N18.9. CKD 3 EXAM MEASUREMENTS: Right Kidney: 9.8 x 4.0 x 4.5 cm Left Kidney: 9.5 x 4.0 x 3.1 cm Right Kidney: Multiple hypoechoic areas 1 cm in size. Echogenic area lower pole. Left Kidney: Multiple hypoechoic areas seen largest 1.3 cm. Bladder: wnl Bilateral Jets seen: Yes There is no evidence for hydronephrosis at this point in time. The urinary bladder is anechoic. B ilateral ureteral jets are seen. IMPRESSION: 1. Multiple renal cysts noted. 2. Nonobstructing nephrolithiasis lower pole right kidney. 3. Poor cortical medullary differentiation.
== END | disposition home or self-care (01) ==
LOC: RADUSWWP 12:15
PROVIDERS: ATTEND Internal Medicine
DX: N18.30 Chronic kidney disease, stage 3 unspecified (principal); N20.0 Calculus of kidney; N28.1 Cyst of kidney, acquired
CPT/HCPCS: 76770

== ENCOUNTER → 2023-02-16 | Outpatient (CLI) | payer MEDICARE ==
[2023-02-16 11:17] LABS: Basophils # (A) 0.03 X 10*3/uL (0.00-0.10); Basophils % (A) 0.3 %; Eosinophils # (A) 0.02 X 10*3/uL (0.04-0.35); Eosinophils % (A) 0.2 %; HCT 35.2 % (37.2-46.3); HGB 11.4 g/dL (12.0-15.0); Immature Grans, Automated 0.9 %; Lymphocytes # (A) 1.01 X 10*3/uL (0.90-5.00); Lymphocytes % (A) 10.3 %; MCHC 32.4 g/dL (32.0-37.0); MCV 98.9 fL (80.0-97.0); Mean Platelet Volume 10.6 fL (9.5-12.2); Monocytes # (A) 0.58 X 10*3/uL (0.20-1.00); Monocytes % (A) 5.9 %; NRBC Per 100 WBC 0 /100 WBCS (0.0-0.0); Neutrophils # (A) 8.09 X 10*3/uL (1.80-7.70); Neutrophils % (A) 82.4 %; Platelet Count 157 X 10*3/uL (140-440); RBC 3.56 X 10*6/uL (4.10-5.20); RDW 12.4 % (11.5-14.5); WBC 9.82 X 10*3/uL (4.50-10.00)
[2023-02-16 11:22] LABS: % Iron Saturation 28.99 (12.00-45.00); African American GFR (CKD) 43.7 (60.0-200.0); Anion Gap 11.5 mmol/L (10.00-18.00); BUN/Creat Ratio 18.14 Ratio (12.00-20.00); Blood Urea Nitrogen 25.4 mg/dL (9.0-27.0); Calcium 9.5 mg/dL (8.7-10.3); Carbon Dioxide 23.5 mmol/L (20.0-27.5); Non-African American GFR(CKD) 37.7 (60.0-200.0); Potassium 4.7 mmol/L (3.5-5.5)
== END | disposition home or self-care (01) ==
LOC: LABWHC1 07:01
PROVIDERS: ATTEND Internal Medicine
DX: N18.9 Chronic kidney disease, unspecified (principal); D63.1 Anemia in chronic kidney disease
CPT/HCPCS: 36415; 80048; 82728; 83540; 83550; 85025

== ENCOUNTER → 2023-04-21 | Outpatient (CLI) | payer MEDICARE ==
[2023-04-21 11:46] LABS: BUN/Creat Ratio 28.81 Ratio (12.00-20.00); Blood Urea Nitrogen 46.1 mg/dL (9.0-27.0); Calcium 9.5 mg/dL (8.7-10.3); Carbon Dioxide 26.3 mmol/L (21.6-31.8); Chloride 97 mmol/L (96-109); Glucose 86 mg/dL (70-110); Potassium 4.2 mmol/L (3.5-5.5); Sodium 137 mmol/L (135-145)
== END | disposition home or self-care (01) ==
LOC: LABWHC1 07:15
PROVIDERS: ATTEND Nurse Practitioner Family
DX: N18.9 Chronic kidney disease, unspecified (principal)
CPT/HCPCS: 36415; 80048

== ENCOUNTER → 2023-06-17 | Outpatient (CLI) | payer MEDICARE ==
[2023-06-17 13:48] LABS: % Iron Saturation 24.91 (12.00-45.00); BUN/Creat Ratio 17.06 Ratio (12.00-20.00); Blood Urea Nitrogen 30.7 mg/dL (9.0-27.0); Calcium 10.1 mg/dL (8.7-10.3); Carbon Dioxide 28.2 mmol/L (21.6-31.8); Chloride 100 mmol/L (96-109); Glucose 107 mg/dL (70-110); Iron 70 UG/DL (50-170); Potassium 4.6 mmol/L (3.5-5.5); Sodium 141 mmol/L (135-145); Total Iron Binding Capacity 281 UG/DL (228-460)
[2023-06-17 14:18] LABS: Basophils # (A) 0.03 X 10*3/uL (0.00-0.10); Basophils % (A) 0.4 %; Eosinophils # (A) 0.09 X 10*3/uL (0.04-0.35); Eosinophils % (A) 1.2 %; HCT 36.5 % (37.2-46.3); HGB 12.1 d/dL (12.0-15.0); Lymphocytes # (A) 1.98 X 10*3/uL (0.90-5.00); Lymphocytes % (A) 25.3 %; MCH 32.4 pg (27.0-32.0); MCHC 33.2 d/dL (32.0-37.0); MCV 97.9 FL (80.0-97.0); NRBC Per 100 WBC 0 X 10*3/uL (0.00-0.01); Neutrophils # (A) 4.97 X 10*3/uL (1.80-7.70); Neutrophils % (A) 63.5 %; Platelet Count 231 X 10*3/uL (140-440); RBC 3.73 X 10*6/uL (4.10-5.20); RDW 12.2 % (11.5-14.5); WBC 7.82 X 10*3/uL (4.50-10.00)
[2023-06-17 14:31] LABS: Appearance,Urine Clear (Clear); Bilirubin,Urine Negative (Negative); Blood,Urine Negative (Negative); Color,Urine Yellow (Yellow); Ketones,Urine Negative (Negative); Nitrite,Urine Negative (Negative); PH, Urine 5.5; Specific Gravity,Urine 1.012 (1.001-1.030); Urobilinogen,Urine 0.2 E.U./DL
== END | disposition home or self-care (01) ==
LOC: LABWHC1 07:05
PROVIDERS: ATTEND Nurse Practitioner Family
DX: N18.9 Chronic kidney disease, unspecified (principal); N39.0 Urinary tract infection, site not specified; D63.1 Anemia in chronic kidney disease
CPT/HCPCS: 36415; 80048; 81003; 82728; 83540; 83550; 85025

== ENCOUNTER → 2023-09-08 | Outpatient (CLI) | payer MEDICARE ==
[2023-09-08 11:17] LABS: Basophils # (A) 0.03 X 10*3/uL (0.00-0.10); Basophils % (A) 0.4 %; Eosinophils # (A) 0.09 X 10*3/uL (0.04-0.35); Eosinophils % (A) 1.1 %; HCT 36.6 % (37.2-46.3); HGB 12.1 d/dL (12.0-15.0); Lymphocytes # (A) 1.84 X 10*3/uL (0.90-5.00); Lymphocytes % (A) 21.7 %; MCH 32.6 pg (27.0-32.0); MCHC 33.1 d/dL (32.0-37.0); MCV 98.7 FL (80.0-97.0); Mean Platelet Volume 9.5 FL (9.5-12.2); Monocytes # (A) 0.79 X 10*3/uL (0.20-1.00); Monocytes % (A) 9.3 %; NRBC Per 100 WBC 0 X 10*3/uL (0.00-0.01); Neutrophils # (A) 5.66 X 10*3/uL (1.80-7.70); Neutrophils % (A) 66.9 %; Platelet Count 226 X 10*3/uL (140-440); RBC 3.71 X 10*6/uL (4.10-5.20); RDW 12.4 % (11.5-14.5); WBC 8.46 X 10*3/uL (4.50-10.00)
[2023-09-08 11:19] LABS: % Iron Saturation 25.17 (12.00-45.00); BUN/Creat Ratio 17.61 Ratio (12.00-20.00); Blood Urea Nitrogen 31.7 mg/dL (9.0-27.0); Calcium 9.6 mg/dL (8.7-10.3); Carbon Dioxide 26.4 mmol/L (21.6-31.8); Chloride 96 mmol/L (96-109); Glucose 93 mg/dL (70-110); Iron 73 UG/DL (50-170); Potassium 3.9 mmol/L (3.5-5.5); Sodium 137 mmol/L (135-145); Total Iron Binding Capacity 290 UG/DL (228-460)
[2023-09-08 12:54] LABS: Appearance,Urine Clear (Clear); Bilirubin,Urine Negative (Negative); Blood,Urine Negative (Negative); Color,Urine Yellow (Yellow); Ketones,Urine Negative (Negative); Nitrite,Urine Negative (Negative); PH, Urine 6.5; Specific Gravity,Urine 1.006 (1.001-1.030); Urobilinogen,Urine 0.2 E.U./DL
== END | disposition home or self-care (01) ==
LOC: LABWHC1 07:01
PROVIDERS: ATTEND Internal Medicine
DX: N18.9 Chronic kidney disease, unspecified (principal); N39.0 Urinary tract infection, site not specified
CPT/HCPCS: 36415; 80048; 81003; 82728; 83540; 83550; 85025

== ENCOUNTER → 2023-09-23 | Outpatient (CLI) | payer MEDICARE ==
[2023-09-23 16:24] LABS: BUN/Creat Ratio 17.53 Ratio (12.00-20.00); Blood Urea Nitrogen 29.8 mg/dL (9.0-27.0); Calcium 9.4 mg/dL (8.7-10.3); Carbon Dioxide 25.8 mmol/L (21.6-31.8); Chloride 102 mmol/L (96-109); Glucose 95 mg/dL (70-110); Potassium 4.1 mmol/L (3.5-5.5); Sodium 142 mmol/L (135-145)
== END | disposition home or self-care (01) ==
LOC: LABWHC1 07:19
PROVIDERS: ATTEND Internal Medicine
DX: I12.9 Hypertensive chronic kidney disease with stage 1 through stage 4 chronic kidney disease, or unspecified chronic kidney disease (principal); N18.9 Chronic kidney disease, unspecified
CPT/HCPCS: 36415; 80048

== ENCOUNTER → 2023-10-06 | Outpatient (CLI) | payer MEDICARE ==
--- NOTE | 2023-10-07 08:07 | MM ---
Reason for Exam: Screening (asymptomatic). Last screening mammogram was performed 12 month(s) ago. Patient History: Menarche at age 15. First Full-Term at age 28. Hysterectomy at age 43. Postmenopausal. Patient has history of breast feeding. Risk Values: Samia 5 year model risk: 1.9%. NCI Lifetime model risk: 5.4%. Prior Study Comparison: 02/24/2019 Bilateral Screening Mammogram, [facility]. 09/25/2021 Bilateral Screening Mammogram, [facility]. 09/26/2022 Bilateral MG 3D screening mammo w/cad, [facility]. Tissue Density: There are scattered fibroglandular densities. Findings: Analyzed By CAD. There is no suspicious group of microcalcifications or new suspicious mass. Overall Assessment: Negative, BI-RAD 1 Management: Screening Mammogram of both breasts in [address] [facility] will attempt to contact patient to return for supplemental views and ultrasound if indicated. Patient should continue monthly self-breast exams. A clinical breast exam by your physician is recommended on an annual basis. This exam should not preclude additional follow-up of suspicious palpable abnormalities. Note on Samia scores and lifetime risk: 1. A Samia score greater than 3% is considered moderate risk. If this is the case, consider specialist referral to assess eligibility for a risk reducing agent. 2. If overall lifetime risk for the development of breast cancer is 20% or higher, the patient may qualify for future screening with alternating mammogram and breast MRI. Electronically signed and approved by: Valentin Nugent DO
== END | disposition home or self-care (01) ==
LOC: RADMAMWWP 07:20
PROVIDERS: ATTEND Internal Medicine
DX: Z12.31 Encounter for screening mammogram for malignant neoplasm of breast (principal); Z78.0 Asymptomatic menopausal state
CPT/HCPCS: 77063; 77067

== ENCOUNTER → 2023-10-16 | Outpatient (CLI) | payer MEDICARE ==
--- NOTE | 2023-10-16 12:31 | US ---
EXAMINATION TYPE: US kidneys/renal and bladder DATE OF EXAM: 10/16/2023 COMPARISON: 02/02/2023 CLINICAL INDICATION: Female, 73 years old with history of N18.32 CHRONIC KIDNEY DISEASE, STAGE 3B; HT N; Patient denies any signs or symptoms at this time EXAM MEASUREMENTS: Right Kidney: 9.1 x 4.2 x 3.9 cm Left Kidney: 8.9 x 5.4 x 4.0 cm Right Kidney: Diffuse renal cortical thinning and loss of cortical medullary differentiation. Multipl e cysts, largest = 2.1 x 1.8 x 2.2 cm; multiple calcifications throughout, ? Stone within lower pole Left Kidney: Loss of cortical medullary differentiation with diffuse increased cortical echogenicity. Multiple cysts, largest = 2.2 x 2.0 x 2.1 cm No hydronephrosis on either side. Bladder: ? Debris vs artifact, only seen in transverse view. Bilateral Jets seen: Yes IMPRESSION: 1. Pronounced changes of chronic medical renal disease on both sides. 2. No hydronephrosis. 3. Known renal calculi seen on patient's prior CT of 10/27/2022 are not well depicted by the present ultrasound.
== END | disposition home or self-care (01) ==
LOC: RADUSWWP 06:43
PROVIDERS: ATTEND Internal Medicine
DX: I12.9 Hypertensive chronic kidney disease with stage 1 through stage 4 chronic kidney disease, or unspecified chronic kidney disease (principal); N18.32 Chronic kidney disease, stage 3b; N20.0 Calculus of kidney
CPT/HCPCS: 76770

== ENCOUNTER → 2024-01-14 | Outpatient (CLI) | payer MEDICARE ==
--- NOTE | 2024-01-14 15:58 | XR ---
EXAMINATION TYPE: XR chest 2V DATE OF EXAM: 01/14/2024 COMPARISON: 11/17/2022. HISTORY: Respiratory infection. TECHNIQUE: Frontal and lateral views of the chest are obtained. FINDINGS: There is no focal air space opacity, pleural effusion, or pneumothorax seen. The cardiac silhouette size is within normal limits. The osseous structures are intact. IMPRESSION: No acute cardiopulmonary process.
== END | disposition home or self-care (01) ==
LOC: RADXRMAIN 15:37
PROVIDERS: ATTEND Internal Medicine
DX: J06.9 Acute upper respiratory infection, unspecified (principal)
CPT/HCPCS: 71046

== ENCOUNTER → 2024-02-22 | Outpatient (CLI) | payer MEDICARE | END | disposition home or self-care (01) | LOC: LABWHC1 14:09 | PROVIDERS: ATTEND Internal Medicine | DX: I12.9 Hypertensive chronic kidney disease with stage 1 through stage 4 chronic kidney disease, or unspecified chronic kidney disease (principal); N18.9 Chronic kidney disease, unspecified; D63.1 Anemia in chronic kidney disease; E27.40 Unspecified adrenocortical insufficiency; E03.9 Hypothyroidism, unspecified; R80.9 Proteinuria, unspecified ==

== ENCOUNTER → 2024-02-23 | Outpatient (CLI) | payer MEDICARE ==
[2024-02-23 15:58] LABS: HCT 37.3 % (37.2-46.3); HGB 12.5 g/dL (12.0-15.0); MCH 34.1 pg (27.0-32.0); MCHC 33.5 g/dL (32.0-37.0); MCV 101.6 FL (80.0-97.0); Mean Platelet Volume 9.7 FL (9.5-12.2); NRBC Per 100 WBC 0 X 10*3/uL (0.00-0.01); Platelet Count 225 X 10*3/uL (140-440); RBC 3.67 X 10*6/uL (4.10-5.20); RDW 13.2 % (11.5-14.5); WBC 9.41 X 10*3/uL (4.50-10.00)
[2024-02-23 19:13] LABS: Microalbumin Creatinine Ratio <113 mg/g Cr (0-30); Urine Creatinine 10.6 mg/dL (28.0-217.0)
[2024-02-23 21:28] LABS: % Iron Saturation 27.97 (12.00-45.00); ALT 34 U/L (8-44); AST 25 U/L (13-35); Albumin 4.4 g/dL (3.8-4.9); Albumin/Globulin Ratio 1.76 Ratio (1.60-3.17); Alkaline Phosphatase 111 U/L (41-126); BUN/Creat Ratio 16.29 Ratio (12.00-20.00); Blood Urea Nitrogen 34.2 mg/dL (9.0-27.0); Calcium 9.8 mg/dL (8.7-10.3); Carbon Dioxide 20.5 mmol/L (21.6-31.8); Chloride 100 mmol/L (96-109); Globulin 2.5 g/dL (1.6-3.3); Glucose 109 mg/dL (70-110); Iron 87 UG/DL (50-170); Phosphorus 3.7 mg/dL (2.4-5.1); Potassium 3.9 mmol/L (3.5-5.5); Sodium 139 mmol/L (135-145); Total Bilirubin 0.5 mg/dL (0.3-1.2); Total Iron Binding Capacity 311 UG/DL (228-460); Total Protein 6.9 g/dL (6.2-8.2)
[2024-02-23 21:29] LABS: T4, Free (Free Thyroxine) 1.48 ng/dL (0.80-1.80)
== END | disposition home or self-care (01) ==
LOC: LABWHC1 08:50
PROVIDERS: ATTEND Internal Medicine
DX: I12.9 Hypertensive chronic kidney disease with stage 1 through stage 4 chronic kidney disease, or unspecified chronic kidney disease (principal); E27.40 Unspecified adrenocortical insufficiency; E03.9 Hypothyroidism, unspecified; N18.9 Chronic kidney disease, unspecified; D63.1 Anemia in chronic kidney disease; R80.9 Proteinuria, unspecified
CPT/HCPCS: 36415; 80053; 82043; 82570; 82728; 83540; 83550; 83735; 84100; 84439; 84443; 85027

== ENCOUNTER 2024-05-27 08:31 | Emergency (ER) | payer MEDICARE ==
[2024-05-27 08:38] VITALS: RESP 18
[2024-05-27] MEDS: LIDOCAINE 1% INJ 10MG/ML (20 ML MDV) SQ ONE (08:59)
[2024-05-27] MEDS: DIPH,PERTUS(ACELL)TETVAC-LF 0.5 ML VIAL IM ONE (09:00)
--- NOTE | 2024-05-27 09:30 | ED ---
Wound/Laceration HPI - General Chief Complaint: Wound/Laceration Stated Complaint: finger Lac Time Seen by Provider: 05/27/24 08:39 Source: patient, RN notes reviewed Mode of arrival: ambulatory Limitations: no limitations - History of Present Illness Initial Comments: This is a 74 year old female who presents to the emergency department for a laceration her left pinky finger. States that she was cutting onions last night and accidentally cut her finger with the knife. This occurred around 7pm last night. she has been struggling to get the bleeding to stop since. Not taking any blood thinners. Unsure when her last tetanus vaccine was. - Related Data Home Medications Medication Instructions Recorded Confirmed Aspirin [Adult Low Dose Aspirin EC] 81 mg PO DAILY 10/10/16 01/15/23 nadoloL [Corgard] 20 mg PO DAILY 10/10/16 01/15/23 ALPRAZolam [Xanax] 0.25 mg PO DAILY PRN 08/17/22 01/15/23 hydrALAZINE HCL [Apresoline] 50 mg PO TID 08/17/22 01/15/23 Furosemide [Lasix] 40 mg PO Q48H 10/14/22 01/15/23 busPIRone HCl [Buspar] 15 mg PO BID 10/14/22 01/15/23 Famotidine [Pepcid] 40 mg PO HS 12/29/22 01/15/23 Ferrous Sulfate [Iron] 325 mg PO TUFR 12/29/22 01/15/23 Lansoprazole [Prevacid] 30 mg PO DAILY 12/29/22 01/15/23 Levothyroxine Sodium 25 mcg PO DAILY 12/29/22 01/15/23 Baclofen 10 mg PO DAILY 01/15/23 01/15/23 Ezetimibe [Zetia] 10 mg PO DAILY 01/15/23 01/15/23 Allergies Allergy/AdvReac Type Severity Reaction Status Date / Time No Known Allergies Allergy Verified 05/27/24 08:38 Review of Systems ROS Statement: Those systems with pertinent positive or pertinent negative responses have been documented in the HPI. ROS Other: All systems not noted in ROS Statement are negative. Past Medical History Past Medical History: Hyperlipidemia, Hypertension, Osteoarthritis (OA), Renal Disease Additional Past Medical History / Comment(s): migraines, pt stated" has had decreased appetite thought she was having trouble with her galllbladder but after testing stated it turned out she had- gastritis,hiatal hernia constipation, arthritis, intermittent.had stage 3 kidney disease, History of Any Multi-Drug Resistant Organisms: None Reported Past Surgical History: Hysterectomy Additional Past Surgical History / Comment(s): alex eyelid surgery, egd/colonosocpy, 19 left total knee Past Anesthesia/Blood Transfusion Reactions: No Reported Reaction Additional Past Anesthesia/Blood Transfusion Reaction / Comment(s): clausterphobia Past Psychological History: Anxiety, Depression Smoking Status: Never smoker Past Alcohol Use History: None Reported Past Drug Use History: None Reported - Past Family History Mother Family Medical History: Myocardial Infarction (NM) Additional Family Medical History / Comment(s): cabg Father Family Medical History: Myocardial Infarction (NM) Additional Family Medical History / Comment(s): cabg General Exam Limitations: no limitations General appearance: alert, in no apparent distress Head exam: Present: atraumatic, normocephalic, normal inspection Respiratory exam: Present: normal lung sounds bilaterally. Absent: respiratory distress, wheezes, rales, rhonchi, stridor Cardiovascular Exam: Present: regular rate, normal rhythm, normal heart sounds. Absent: systolic murmur, diastolic murmur, rubs, gallop, clicks Extremities exam: Present: other (Flap laceration to the tip of the left pinky finger with active bleeding) Neurological exam: Present: alert, oriented X3, CN II-XII intact Psychiatric exam: Present: normal affect, normal mood Course Vital Signs 05/27/24 05/27/24 08:34 09:37 Temperature 97.6 F 97.8 F Pulse Rate 76 72 Respiratory 18 18 Rate Blood Pressure 146/89 138/76 O2 Sat by Pulse 98 98 Oximetry Procedures - Laceration Laceration #1 Consent Obtained: verbal consent Indication: laceration Site: hand Size (cm): 3 Description: flap Depth: simple, single layer Anesthetic Used: lidocaine 1% Anesthesia Technique: local infiltration Amount (mls): 5 Pre-repair: wound explored, irrigated extensively Type of Sutures: nylon Size of Sutures: 6-0 Number of Sutures: 6 Technique: simple, interrupted Medical Decision Making - Medical Decision Making This is a 74 year old female who presents to the emergency department for a laceration to the left pinky finger. Was pt. sent in by a medical professional or institution? @ -No Did you speak to anyone other than the patient for history? @ -No Did you review nursing and triage notes? @ -Yes, and I agree, it is accurate with regards to the patient's symptoms. Were old charts reviewed? @ -No Differential Diagnosis? @ -Differential Laceration: Laceration, abrasion, abscess, cellulitis, insect bite, this is not meant to be an all-inclusive list. EKG interpreted by me (3pts min.)? @ -Not obtained X-rays interpreted by me (1pt min.)? @ -Not obtained CT interpreted by me (1pt min.)? @ -Not obtained U/S interpreted by me (1pt. min.)? @ -Not obtained What testing was considered but not performed? (CT, X-rays, U/S, labs)? Why? @ -None What meds were considered but not given? Why? @ -None Did you discuss the management of the patient with other professionals? @ -No Did you reconcile home meds? @ -No Was smoking cessation discussed for >3mins.? @ -No Was critical care preformed (if so, how long)? @ -No Were there social determinants of health that impacted care today? How? (Homelessness, low income, unemployed, alcoholism, drug addiction, transportation, low edu. Level, literacy, decrease access to med. care, snf, rehab)? @ -No Was there de-escalation of care discussed even if they declined? (Discuss DNR or withdrawal of care, Hospice)? @ -No What co-morbidities impacted this encounter? (DM, HTN, Smoking, COPD, CAD, Cancer, CVA, Hep., AIDS, mental health diagnosis, sleep apnea, morbid obesity)? @ -None Was patient admitted / discharged? @ -Discharged. Patient had a flap laceration to the left pinky finger on exam. This was thoroughly cleansed and repaired with sutures. Tetanus vaccine was updated. She is advised to return in 7-10 days for suture removal. Undiagnosed new problem with uncertain prognosis? @ -None Drug Therapy requiring intensive monitoring for toxicity (Heparin, Nitro, Insulin, Cardizem)? @ -None Were any procedures done? @ -Laceration repair with sutures. Diagnosis/symptom? @ -Laceration Acute, or Chronic, or Acute on Chronic? @ -Acute Uncomplicated (without systemic symptoms) or Complicated (systemic symptoms)? @ -Uncomplicated Side effects of treatment? @ -None Exacerbation, Progression, or Severe Exacerbation] @ -Not applicable Poses a threat to life or bodily function? @ -None Return precautions reviewed in depth, the patient is instructed to return to the emergency department with any new, worsening, or concerning symptoms. Patient verbalized understanding. This case was discussed in detail with the attending ED physician, Dr. Cantu. Presentation, findings, and treatment plan discussed in detail as well. Disposition Clinical Impression: Laceration Disposition: HOME SELF-CARE Instructions (If sedation given, give patient instructions): Care For Your Stitches (ED) Additional Instructions: Return to the emergency department with any new, worsening, or concerning symptoms, and in 7-10 days for removal of the stitches. Is patient prescribed a controlled substance at d/c from ED?: No Referrals: Sia Unger MD [Primary Care Provider] - 1-2 days Time of Disposition: 09:30
[2024-05-27 09:41] VITALS: BP 138/76; PULSE 72; TEMP 97.8
== END 2024-05-27 09:44 | disposition home or self-care (01) ==
LOC: EC 08:31
DX: S61.217A Laceration without foreign body of left little finger without damage to nail, initial encounter (principal); Z23 Encounter for immunization; W26.0XXA Contact with knife, initial encounter
CPT/HCPCS: 90715; 99282; 90471; 12002; J2001

== ENCOUNTER → 2024-07-06 | Outpatient (CLI) | payer MEDICARE | END | disposition home or self-care (01) | LOC: LABWHC1 07:23 | PROVIDERS: ATTEND Internal Medicine | DX: E55.9 Vitamin D deficiency, unspecified (principal) | CPT/HCPCS: 36415; 82306 ==

== ENCOUNTER → 2024-08-03 | Outpatient (CLI) | payer MEDICARE ==
[2024-08-03 10:46] LABS: HCT 37.9 % (37.2-46.3); MCHC 34.3 g/dL (32.0-37.0); MCV 96.2 FL (80.0-97.0); Mean Platelet Volume 9.2 FL (9.5-12.2); NRBC Per 100 WBC 0 X 10*3/uL (0.00-0.01); Platelet Count 278 X 10*3/uL (140-440); RBC 3.94 X 10*6/uL (4.10-5.20); RDW 12.7 % (11.5-14.5); WBC 13.12 X 10*3/uL (4.50-10.00)
[2024-08-03 10:47] LABS: Microalbumin Creatinine Ratio <11 mg/g Cr (0-30)
[2024-08-03 11:18] LABS: BUN/Creat Ratio 19.09 Ratio (12.00-20.00); Calcium 9.9 mg/dL (8.7-10.3); Carbon Dioxide 24.6 mmol/L (21.6-31.8); Chloride 99 mmol/L (96-109); Glucose 94 mg/dL (70-110); Iron 64 UG/DL (50-170); Magnesium 2.2 mg/dL (1.5-2.4); Potassium 4.1 mmol/L (3.5-5.5); Sodium 137 mmol/L (135-145); Total Iron Binding Capacity 287 UG/DL (228-460); Uric Acid 8.4 mg/dL (2.9-7.7)
[2024-08-03 15:49] LABS: Appearance,Urine Clear (Clear); Bilirubin,Urine Negative (Negative); Blood,Urine Negative (Negative); Color,Urine Yellow (Yellow); Ketones,Urine Negative (Negative); Nitrite,Urine Negative (Negative); PH, Urine 5.5; Specific Gravity,Urine 1.013 (1.001-1.030); Urobilinogen,Urine 0.2 E.U./DL
== END | disposition home or self-care (01) ==
LOC: LABWHC1 07:02
PROVIDERS: ATTEND Thoracic Surgery (Cardiothoracic Vascular Surgery)
DX: I12.9 Hypertensive chronic kidney disease with stage 1 through stage 4 chronic kidney disease, or unspecified chronic kidney disease
CPT/HCPCS: 36415; 80048; 81003; 82043; 82306; 82570; 82728; 83540; 83550; 83735; 84100; 84550; 85027

== ENCOUNTER → 2024-10-05 | Outpatient (CLI) | payer MEDICARE ==
[2024-10-05 10:26] LABS: HGB 12.3 g/dL (12.0-15.0); MCH 32.9 pg (27.0-32.0); MCHC 34.2 g/dL (32.0-37.0); MCV 96.3 FL (80.0-97.0); Mean Platelet Volume 9.2 FL (9.5-12.2); NRBC Per 100 WBC 0 X 10*3/uL (0.00-0.01); Platelet Count 269 X 10*3/uL (140-440); RBC 3.74 X 10*6/uL (4.10-5.20); RDW 12.8 % (11.5-14.5); WBC 10.08 X 10*3/uL (4.50-10.00)
[2024-10-05 10:53] LABS: % Iron Saturation 32.26 (12.00-45.00); Iron 80 UG/DL (50-170); T4, Free (Free Thyroxine) 1.53 ng/dL (0.80-1.80); Total Iron Binding Capacity 248 UG/DL (228-460)
[2024-10-05 11:22] LABS: Vitamin B12 >3600.0 pg/mL (200.0-944.0)
== END | disposition home or self-care (01) ==
LOC: LABWHC1 07:10
PROVIDERS: ATTEND Internal Medicine Endocrinology, Diabetes & Metabolism
DX: E03.8 Other specified hypothyroidism (principal); R53.83 Other fatigue
CPT/HCPCS: 36415; 82607; 82728; 83540; 83550; 84439; 84443; 85027

== ENCOUNTER → 2024-10-21 | Outpatient (CLI) | payer MEDICARE ==
[2024-10-21 10:57] LABS: HCT 38.1 % (37.2-46.3); HGB 12.9 g/dL (12.0-15.0); MCH 33.9 pg (27.0-32.0); MCHC 33.9 g/dL (32.0-37.0); Mean Platelet Volume 9.4 FL (9.5-12.2); NRBC Per 100 WBC 0 X 10*3/uL (0.00-0.01); Platelet Count 259 X 10*3/uL (140-440); RBC 3.81 X 10*6/uL (4.10-5.20); RDW 12.6 % (11.5-14.5); WBC 11.99 X 10*3/uL (4.50-10.00)
[2024-10-21 11:08] LABS: Microalbumin Creatinine Ratio <8 mg/g Cr (0-30)
[2024-10-21 11:16] LABS: % Iron Saturation 28.29 (12.00-45.00); ALT 18 U/L (8-44); AST 21 U/L (13-35); Albumin 4.4 g/dL (3.8-4.9); Albumin/Globulin Ratio 1.76 Ratio (1.60-3.17); Alkaline Phosphatase 82 U/L (41-126); BUN/Creat Ratio 11.95 Ratio (12.00-20.00); Blood Urea Nitrogen 26.3 mg/dL (9.0-27.0); Calcium 9.9 mg/dL (8.7-10.3); Chloride 102 mmol/L (96-109); Globulin 2.5 g/dL (1.6-3.3); Glucose 91 mg/dL (70-110); Iron 71 UG/DL (50-170); Magnesium 1.9 mg/dL (1.5-2.4); Phosphorus 3.9 mg/dL (2.4-5.1); Potassium 4.2 mmol/L (3.5-5.5); Sodium 140 mmol/L (135-145); Total Bilirubin 0.8 mg/dL (0.3-1.2); Total Iron Binding Capacity 251 UG/DL (228-460); Total Protein 6.9 g/dL (6.2-8.2); Uric Acid 8.4 mg/dL (2.9-7.7)
[2024-10-21 11:33] LABS: Appearance,Urine Clear (Clear); Bilirubin,Urine Negative (Negative); Blood,Urine Negative (Negative); Color,Urine Yellow (Yellow); Ketones,Urine Negative (Negative); Nitrite,Urine Negative (Negative); PH, Urine 5.5; Specific Gravity,Urine 1.015 (1.001-1.030)
[2024-10-21 11:41] LABS: Bacteria,Urine 2+ (None Seen)
== END | disposition home or self-care (01) ==
LOC: LABWHC1 07:21
PROVIDERS: ATTEND Internal Medicine
DX: E55.9 Vitamin D deficiency, unspecified (principal); N39.0 Urinary tract infection, site not specified; N25.81 Secondary hyperparathyroidism of renal origin; N18.4 Chronic kidney disease, stage 4 (severe); D63.1 Anemia in chronic kidney disease; M10.9 Gout, unspecified; R80.9 Proteinuria, unspecified
CPT/HCPCS: 36415; 80053; 81001; 82043; 82306; 82570; 82728; 83540; 83550; 83735; 83970; 84100; 84550; 85027

== ENCOUNTER → 2025-01-27 | Outpatient (CLI) | payer MEDICARE ==
[2025-01-27 10:10] LABS: HCT 37.7 % (37.2-46.3); MCH 32.8 pg (27.0-32.0); MCHC 34.5 g/dL (32.0-37.0); MCV 95.2 FL (80.0-97.0); NRBC Per 100 WBC 0 X 10*3/uL (0.00-0.01); Platelet Count 249 X 10*3/uL (140-440); RBC 3.96 X 10*6/uL (4.10-5.20); RDW 12.4 % (11.5-14.5); WBC 7.11 X 10*3/uL (4.50-10.00)
[2025-01-27 10:40] LABS: BUN/Creat Ratio 8.73 Ratio (12.00-20.00); Blood Urea Nitrogen 19.2 mg/dL (9.0-27.0); Glucose 89 mg/dL (70-110)
[2025-01-27 10:41] LABS: ALT 31 U/L (8-44); AST 33 U/L (13-35); Albumin 4.6 g/dL (3.8-4.9); Albumin/Globulin Ratio 1.92 Ratio (1.60-3.17); Alkaline Phosphatase 112 U/L (41-126); Calcium 10.5 mg/dL (8.7-10.3); Carbon Dioxide 26.4 mmol/L (21.6-31.8); Chloride 101 mmol/L (96-109); Globulin 2.4 g/dL (1.6-3.3); Magnesium 2.1 mg/dL (1.5-2.4); Phosphorus 3.7 mg/dL (2.4-5.1); Sodium 141 mmol/L (135-145); Total Bilirubin 0.7 mg/dL (0.3-1.2); Uric Acid 8.7 mg/dL (2.9-7.7)
[2025-01-27 11:36] LABS: % Iron Saturation 27.55 (12.00-45.00); Iron 73 UG/DL (50-170); Total Iron Binding Capacity 265 UG/DL (228-460)
[2025-01-27 12:07] LABS: Appearance,Urine Clear (Clear); Bilirubin,Urine Negative (Negative); Blood,Urine Negative (Negative); Color,Urine Yellow (Yellow); Ketones,Urine Trace (Negative); Nitrite,Urine Negative (Negative); PH, Urine 6.5; Specific Gravity,Urine 1.013 (1.001-1.030); Urobilinogen,Urine 0.2 E.U./DL
[2025-01-27 12:37] LABS: Bacteria,Urine 3+ (None Seen)
== END | disposition home or self-care (01) ==
LOC: LABWHC1 06:59
PROVIDERS: ATTEND Internal Medicine Endocrinology, Diabetes & Metabolism
DX: N18.4 Chronic kidney disease, stage 4 (severe) (principal); D63.1 Anemia in chronic kidney disease; E03.8 Other specified hypothyroidism; E55.9 Vitamin D deficiency, unspecified; N39.0 Urinary tract infection, site not specified; M10.9 Gout, unspecified; N25.81 Secondary hyperparathyroidism of renal origin; R80.9 Proteinuria, unspecified; R53.83 Other fatigue
CPT/HCPCS: 36415; 80053; 81001; 82043; 82306; 82570; 82728; 83540; 83550; 83735; 83970; 84100; 84443; 84550; 85027

== ENCOUNTER → 2025-02-06 | Outpatient (CLI) | payer MEDICARE ==
--- NOTE | 2025-02-06 08:54 | MM ---
Reason for Exam: Screening (asymptomatic). Last mammogram was performed 1 year(s) and 4 month(s) ago. Patient History: Menarche at age 15. First Full-Term at age 28. Hysterectomy at age 43. Postmenopausal. Patient has history of breast feeding. Risk Values: Samia 5 year model risk: 2.0%. NCI Lifetime model risk: 4.8%. Prior Study Comparison: 02/23/2018 Bilateral Screening Mammogram, [facility]. 02/24/2019 Bilateral Screening Mammogram, [facility]. 09/25/2021 Bilateral Screening Mammogram, [facility]. 09/26/2022 Bilateral MG 3D screening mammo w/cad, [facility]. 10/06/2023 Bilateral MG 3D screening mammo w/cad, [facility]. Tissue Density: The breasts are heterogeneously dense, which may obscure small masses. Findings: Analyzed By CAD. There is no suspicious group of microcalcifications or new suspicious mass in either breast. Overall Assessment: Negative, BI-RAD 1 Management: Screening Mammogram of both breasts in 1 year. . Patient should continue monthly self-breast exams. A clinical breast exam by your physician is recommended on an annual basis. This exam should not preclude additional follow-up of suspicious palpable abnormalities. Note on Samia scores and lifetime risk: 1. A Samia score greater than 3% is considered moderate risk. If this is the case, consider specialist referral to assess eligibility for a risk reducing agent. 2. If overall lifetime risk for the development of breast cancer is 20% or higher, the patient may qualify for future screening with alternating mammogram and breast MRI. [facility], , 02/06/2025 8:52 AM. Electronically signed and approved by: Antelmo Ruiz M.D. [facility]
== END | disposition home or self-care (01) ==
LOC: RADMAMWWP 08:20
PROVIDERS: ATTEND Internal Medicine
DX: Z12.31 Encounter for screening mammogram for malignant neoplasm of breast (principal); R92.333 Mammographic heterogeneous density, bilateral breasts; Z78.0 Asymptomatic menopausal state
CPT/HCPCS: 77063; 77067

== ENCOUNTER → 2025-02-13 | Outpatient (CLI) | payer MEDICARE ==
[2025-02-13 15:32] LABS: BUN/Creat Ratio 6.47 Ratio (12.00-20.00); Blood Urea Nitrogen 12.3 mg/dL (9.0-27.0); Calcium 10.2 mg/dL (8.7-10.3); Carbon Dioxide 23.5 mmol/L (21.6-31.8); Chloride 105 mmol/L (96-109); Glucose 90 mg/dL (70-110); Potassium 4.8 mmol/L (3.5-5.5); Sodium 139 mmol/L (135-145)
== END | disposition home or self-care (01) ==
LOC: LABWHC1 09:59
PROVIDERS: ATTEND Internal Medicine Endocrinology, Diabetes & Metabolism
DX: E03.9 Hypothyroidism, unspecified (principal)
CPT/HCPCS: 36415; 80048; 83970

== ENCOUNTER → 2025-02-17 | Outpatient (CLI) | payer MEDICARE ==
[2025-02-17 15:40] LABS: ALT 22 U/L (8-44); AST 21 U/L (13-35); Albumin 4.1 g/dL (3.8-4.9); Albumin/Globulin Ratio 1.86 Ratio (1.60-3.17); Alkaline Phosphatase 116 U/L (41-126); BUN/Creat Ratio 6.91 Ratio (12.00-20.00); Blood Urea Nitrogen 15.2 mg/dL (9.0-27.0); Calcium 9.9 mg/dL (8.7-10.3); Carbon Dioxide 21.7 mmol/L (21.6-31.8); Chloride 110 mmol/L (96-109); Globulin 2.2 g/dL (1.6-3.3); Glucose 81 mg/dL (70-110); Potassium 5.4 mmol/L (3.5-5.5); Sodium 145 mmol/L (135-145); Total Bilirubin 0.5 mg/dL (0.3-1.2); Total Protein 6.3 g/dL (6.2-8.2)
== END | disposition home or self-care (01) ==
LOC: LABWHC1 10:05
PROVIDERS: ATTEND Nurse Practitioner Family
DX: N18.4 Chronic kidney disease, stage 4 (severe) (principal)
CPT/HCPCS: 36415; 80053

== ENCOUNTER → 2025-04-19 | Outpatient (CLI) | payer MEDICARE | END | disposition home or self-care (01) | LOC: LABWHC1 07:19 | PROVIDERS: ATTEND Internal Medicine Endocrinology, Diabetes & Metabolism | DX: E27.3 Drug-induced adrenocortical insufficiency (principal) | CPT/HCPCS: 36415; 82024; 82533 ==

== ENCOUNTER → 2025-05-03 | Outpatient (CLI) | payer MEDICARE ==
[2025-05-03 15:08] LABS: HCT 34.7 % (37.2-46.3); HGB 11.5 g/dL (12.0-15.0); MCH 31.9 pg (27.0-32.0); MCHC 33.1 g/dL (32.0-37.0); MCV 96.4 FL (80.0-97.0); Mean Platelet Volume 10.4 FL (9.5-12.2); NRBC Per 100 WBC 0 X 10*3/uL (0.00-0.01); Platelet Count 231 X 10*3/uL (140-440); RDW 12.3 % (11.5-14.5)
[2025-05-03 15:21] LABS: Appearance,Urine Clear (Clear); Bilirubin,Urine Negative (Negative); Blood,Urine Negative (Negative); Color,Urine Yellow (Yellow); Ketones,Urine Negative (Negative); Nitrite,Urine Negative (Negative); PH, Urine 5.5; Specific Gravity,Urine 1.012 (1.001-1.030); Urobilinogen,Urine 0.2 E.U./DL
[2025-05-03 15:29] LABS: Bacteria,Urine None Seen (None Seen)
[2025-05-03 15:47] LABS: % Iron Saturation 25.87 (12.00-45.00); Iron 67 UG/DL (50-170); Magnesium 2.1 mg/dL (1.5-2.4); Phosphorus 4.1 mg/dL (2.4-5.1); Total Iron Binding Capacity 259 UG/DL (228-460)
[2025-05-03 15:49] LABS: ALT 42 U/L (8-44); AST 44 U/L (13-35); Albumin 4.4 g/dL (3.8-4.9); Albumin/Globulin Ratio 1.63 Ratio (1.60-3.17); Alkaline Phosphatase 129 U/L (41-126); BUN/Creat Ratio 12.54 Ratio (12.00-20.00); Blood Urea Nitrogen 30.1 mg/dL (9.0-27.0); Calcium 10.1 mg/dL (8.7-10.3); Chloride 97 mmol/L (96-109); Globulin 2.7 g/dL (1.6-3.3); Glucose 95 mg/dL (70-110); Potassium 4.4 mmol/L (3.5-5.5); Sodium 139 mmol/L (135-145); Total Protein 7.1 g/dL (6.2-8.2)
[2025-05-03 17:06] LABS: Microalbumin Creatinine Ratio <10 mg/g Cr (0-30)
== END | disposition home or self-care (01) ==
LOC: LABWHC1 07:30
PROVIDERS: ATTEND Nurse Practitioner Family
DX: N18.4 Chronic kidney disease, stage 4 (severe) (principal); D63.1 Anemia in chronic kidney disease; N39.0 Urinary tract infection, site not specified; E55.9 Vitamin D deficiency, unspecified; N25.81 Secondary hyperparathyroidism of renal origin; M10.9 Gout, unspecified; R80.9 Proteinuria, unspecified
CPT/HCPCS: 36415; 80053; 81001; 82043; 82306; 82570; 82728; 83540; 83550; 83735; 83970; 84100; 85027